=== PATIENT | male | born 1965 | race Caucasian/White ===

== ENCOUNTER 2025-03-10 11:19 | Inpatient (IN) | payer BC, SELFPAY ==
[2025-03-10] VITALS (26 sets, daily range): BP systolic 111–159; BP diastolic 69–126; BMI 30.6
--- NOTE | 2025-03-10 04:29 | ED.GENMED ---
History of Present Illness
General
Chief Complaint: Circulation Problem
Source: patient and records
Exam Limitations: none
Time Seen by Provider: 03/10/25 04:09
Nursing documentation reviewed up to this point in time: agreed with
History of Present Illness
History of Present Illness:
59-year-old male with peripheral vascular disease status post 2 aorto to femoral once in [place] once at [place]
Continues to smoke, takes aspirin, no other blood thinners he has had pain in his left foot chronically with exertion past 24 hours has had it with rest, here his left foot is cool without a pulse
Past History
Past History
ED Past Medical History: CAD, Other (Vascular disease) and Other (Coronary disease with stents and MRIs, diastolic dysfunction with EF of 50%, questionable previous stroke, known left internal carotid occlusion, PAD with aortobifemoral grafting,
hyperlipidemia, hypertension)
ED Past Surgical History: Cardiac and Other (Peripheral vascular disease)
Social History
Tobacco: Smoker
Alcohol: None
Drug: None
Personal:
Living: with family
Employment: Employed
Family History
Family History: Other (Noncontributory)
Review of Systems
Review of Systems
All Other Systems: Not applicable
Constitutional: Denies fever or fatigue
Neurological: Reports numbness
Phy Exam
Physical Exam
Physical Exam:
Physical Exam
General: no apparent distress, not acutely ill
Neck: No jaundice
Heart: s1/s2 regular rate and rhythm, no murmur. equal radial pulses.
Lungs: no acute respiratory distress. clear bilaterally
Abdomen: Not tender palpable albeit diminished pulses left groin
Neuro: alert and oriented. no focal neurological deficits
Skin: no rash
Psychiatric: well kept. interactive and cooperative
Extremities: Left foot cool decreased pulse
Course
Orders/Labs/Results
Orders:
Orders
03/10/25 04:18
CT Abd Aorta Angio W/ Run Off Urgent
Comment:
Reason For Exam: cool foot left
03/10/25 04:19
Electrocardiogram (*1) Urgent
Reason for Study: Abdominal Pain
03/10/25 04:38
Type+Screen Urgent
Complete Blood Count/With Diff Urgent
Comprehensive Metabolic Panel Urgent
PTT Urgent
Prothrombin Time Urgent
03/10/25 06:[address] Non Medication Order As Directed
Physician Order: PTT 6 hours after initial start of Heparin infusion
Above order entered?: Yes
03/10/25 07:00
Heparin 07396 Units/250 ml 25,000 units in 250 ml IV PER PROTOCOL
Weight to be used for heparin protocol in kilograms (kg):: 83.4
Protocol:: Vascular Surgery
PTT Goal Range to be used:: PTT 73 to 111 seconds
Order type:: Initial
INITIAL Infusion Dose (UNITS/KG/hr) & then follow protocol:: 18 units/kg/hr
Infusion Dose in UNITS/hr & then follow protocol (UNITS/hr):: 1,500
INFUSION RATE in mL/hr & then follow protocol (mL/hr):: 15
PTT less than or equal to 64 seconds:: Notify Ordering Provider. obtain orders for rate increase &
possible bolus
PTT 64.1 to 72.9 seconds:: Increase rate by 100 units/hr (+ 1 mL/hr)
PTT 73 to 111 seconds:: Target Range. No change in rate.
PTT 111.1 to 130.9 seconds:: Decrease rate by 100 units/hr (- 1 mL/hr)
PTT 131 to 199.9 seconds:: HOLD for 1 hour. Then decrease rate by 200 units/hr (- 2 mL/hr)
PTT greater than or equal to 200 seconds:: STOP INFUSION. Notify Ordering provider to obtain further orders.
Lab follow-up:: Each change, PTT q6h until 2 consecutive are therapeutic. Then PTT
daily.
03/10/25 07:07
Vascular Surgery Consult Urgent
Consulting Provider: Cruz Lutz
Was physician already notified: Yes
0.9% Sodium Chloride 1000 ml [Nss] 1,000 ml IV BOLUS
Heparin 4,000 units IV NOW STA
03/10/25 07:16
HYDROmorphone [Dilaudid] 1 mg IV NOW STA
03/10/25 07:22
Lidocaine 2% Mpf [Xylocaine Mpf 2%] 100 mg .ROUTE .STK-MED ONE
Propofol [Diprivan] 20 ml .ROUTE .STK-MED
Rocuronium Luke [Rocuronium] 50 mg .ROUTE .STK-MED ONE
03/10/25 07:24
NORepinephrine 4 MG/250 ML [Levophed] 4 mg in 250 ml .ROUTE .STK-MED
Nitroglycerin [Tridil] 500 mcg .ROUTE .STK-MED ONE
03/10/25 08:09
Fentanyl Citrate/Pf [Sublimaze] 100 mcg .ROUTE .STK-MED ONE
03/10/25 08:16
Heparin 5,000 units .ROUTE .STK-MED ONE
Thrombin Topical (Bovine) [Thrombin-Jmi 40758 Unit Vial] 20,000 units .ROUTE .STK-MED ONE
03/10/25 08:31
CeFAZolin SODIUM [Ancef] 2,000 mg .ROUTE .STK-MED ONE
Heparin 10,000 units .ROUTE .STK-MED ONE
03/10/25 09:14
Dexmedetomidine HCl [Precedex] 200 mcg .ROUTE .STK-MED ONE
Fentanyl Citrate/Pf [Sublimaze] 100 mcg .ROUTE .STK-MED ONE
03/10/25 09:17
Dexamethasone Sod Phosphate [Decadron] 20 mg .ROUTE .STK-MED ONE
Ondansetron Injectable [Zofran] 4 mg .ROUTE .STK-MED ONE
Rocuronium Luke [Rocuronium] 50 mg .ROUTE .STK-MED ONE
03/10/25 09:21
Dexmedetomidine HCl [Precedex] 200 mcg .ROUTE .STK-MED ONE
03/10/25 09:28
Sugammadex Sodium [Bridion] 200 mg .ROUTE .STK-MED ONE
03/10/25 Lunch
Cholesterol Lowering
At Your Request: Full Participation
Cholesterol Lowering: Sodium, 2 Gram
03/10/25 10:30
VASCULAR OR PATHOLOGY Routine
Pre-Operative Diagnosis: critical limb ischemia
Operative Procedure: [id number] thrombectomy
Surgeon: miguel
Circulating Nurse: brianne
Specimen Type: left femoral thrombus
:: left popliteal thrombus
03/10/25 10:39
Calcium CHLORIDE [Calcium Chloride 10% Syringe] 1,000 mg .ROUTE .STK-MED ONE
03/10/25 10:42
PRN Pain Medication Management As Directed
May give lesser potent ordered pain med per pt: Yes
preference::
Protocol:: Medication orders for pain may be administered in a
manner that supports deferring to patient preference
when the pt is:
- Requesting an ordered lesser potent pain medication.
Least to most potent pain medications are defined
as: acetaminophen < NSAID < tramadol < opioids
(morphine, oxycodone, hydromorphone).
- Requesting a lesser dose of the same medication IF
ORDERED.
- Requesting a less intrusive route of administration
if both routes are prescribed by the provider (PO <
IV).
03/10/25 10:43
Code Status As Directed
Resuscitation Status: Full Code
03/10/25 10:46
Sodium Bicarbonate 50 meq .ROUTE .STK-MED ONE
03/10/25 11:05
Heparin 10,000 units .ROUTE .STK-MED ONE
03/10/25 11:15
Admit/Transfer Patient As Directed
Co-Sign Provider:
Level of Care: Inpatient admission
Assign to:: ICU
Physician / Group: domingo calderon
Diagnosis: Left limb ischemia
Reason for Hospitalization: Left lower extremity ischemia
Expected length of stay greater than two midnights?: Yes
ELOS- Estimated Length of Stay in days: 3
I certify the patient meets the requirements for IP care: Yes
03/10/25 11:16
PRN Pain Medication Management As Directed
May give lesser potent ordered pain med per pt: Yes
preference::
Protocol:: Medication orders for pain may be administered in a
manner that supports deferring to patient preference
when the pt is:
- Requesting an ordered lesser potent pain medication.
Least to most potent pain medications are defined
as: acetaminophen < NSAID < tramadol < opioids
(morphine, oxycodone, hydromorphone).
- Requesting a lesser dose of the same medication IF
ORDERED.
- Requesting a less intrusive route of administration
if both routes are prescribed by the provider (PO <
IV).
03/10/25 14:31
Acetaminophen [Tylenol] 650 mg PO Q4HPRN PRN
HYDROmorphone [Dilaudid] 0.5 mg IV Q4HPRN PRN
Heparin 35851 Units/250 ml 25,000 units in 250 ml IV PER PROTOCOL
Weight to be used for heparin protocol in kilograms (kg):: 83.4
Protocol:: Vascular Surgery
PTT Goal Range to be used:: PTT 73 to 111 seconds
Order type:: Continue/Resume
Maintain current infusion rate & then follow protocol:: Yes
PTT less than or equal to 64 seconds:: Notify Ordering Provider. obtain orders for rate increase &
possible bolus
PTT 64.1 to 72.9 seconds:: Increase rate by 100 units/hr (+ 1 mL/hr)
PTT 73 to 111 seconds:: Target Range. No change in rate.
PTT 111.1 to 130.9 seconds:: Decrease rate by 100 units/hr (- 1 mL/hr)
PTT 131 to 199.9 seconds:: HOLD for 1 hour. Then decrease rate by 200 units/hr (- 2 mL/hr)
PTT greater than or equal to 200 seconds:: STOP INFUSION. Notify Ordering provider to obtain further orders.
Lab follow-up:: Each change, PTT q6h until 2 consecutive are therapeutic. Then PTT
daily.
Ondansetron Injectable [Zofran] 4 mg IV Q6HPRN PRN
Oxycodone [Roxicodone] 5 mg PO Q4HPRN PRN
Polyethylene Glycol Powder [Miralax] 17 grams PO DAILYPRN PRN
03/10/25 14:31
EKG [Electrocardiogram (*1)] Routine
Reason for Study: QTc Monitoring
Heparin Protocol- PTT Orders As Directed
PTT per Heparin protocol: -Obtain CBC and baseline PTT - if not already collected.
-Obtain PTT 6 hours from start of infusion. Then, every 6 hours until 2 consecutive
PTT's are therapeutic. Then, PTT Daily.
-With each rate change, obtain PTT every 6 hours until 2 consecutive PTT's are
therapeutic. Then, PTT Daily.
Activity As Directed
Activity Level: Bedrest for limited time
Bedrest duration in hours then activity as indicated above:: 24
Notify MD As Directed
Notify physician if: PTT is greater than or equal to 200.
Vital Signs As Directed
Frequency: Per unit guidelines
03/11/25 04:18
Basic Metabolic Panel IN AM
Complete Blood Count/No Diff IN AM
Magnesium IN AM
03/11/25 08:00
Aspirin Chewable [Low Strength Aspirin] 81 mg PO DAILY
03/12/25 04:17
Basic Metabolic Panel IN AM
Complete Blood Count/No Diff IN AM
03/13/25 06:00
Basic Metabolic Panel IN AM
Complete Blood Count/No Diff IN AM
Abnormal Lab Results
03/10/25
04:38
MCH 31.1 H pg
(27.0-31.0)
Absolute Monos (auto) 0.8 H 10^3/uL
(0.1-0.6)
Monocytes % 9.6 H %
(1.7-9.3)
Chloride 108 H mmol/L
(98-107)
Glucose 101 H mg/dl
(70-99)
03/10/25 04:38
03/10/25 04:38
Vital Signs
Initial and Last Documented VS:
Initial Vital Signs
Temp Pulse BP Pulse Ox
97.6 F 68 159/86 98
03/10/25 03:52 03/10/25 03:52 03/10/25 03:52 03/10/25 03:52
Last Documented Vital Signs
Temp Pulse Resp BP Pulse Ox
98.3 F 71 18 111/61 95
03/12/25 11:35 03/12/25 13:15 03/12/25 13:15 03/12/25 12:00 03/12/25 12:45
MDM/Problems Addressed
Differential Diagnosis Includes:
Arterial occlusion embolic
MDM/Problems Addressed:
Pulseless
Chronic conditions affecting care:
Peripheral vascular disease
Acute Exacerbation and/or Progression of Chronic Illness:
Peripheral vascular disease
*Pulse Oximetry
SaO2: 98
Oxygen Mode of Delivery: Room air
Patient hypoxic: no
*Critical Care Note
Total Time (30-74mins, 75-104mins- exclusive of procedures): 31
Update Note
Update Note:
late entry
ct report reviewed, call to vascular and hospitalist
[facility]
admit to OR,
ED Attending Note
-
Portions of this chart may have been created with voice recognition software.� Occasional wrong word or��sound alike� substitutions may have occurred due to the inherent limitations of voice recognition software.
Discharge Plan
Departure
Patient Disposition: Admit
Date of Disposition: 03/10/25
Time of Disposition: 07:10
Admit to: OR
Presentation/result/management discussed w/ accepting MD/DO: Hospitalist
Patient with high blood pressure during this ER visit?: No
Condition: Serious
Discharge Problem:
Acute arterial insufficiency
Interventions
Interventions:
*General Assessment Last Done: 03/10/25 04:43
*Neglect/Abuse Screening Last Done: 03/10/25 04:43
*ED- Fall Risk Assessment Last Done: 03/10/25 04:43
*Nursing Disposition Last Done: 03/10/25 08:48
ED-Peripheral Vascular Assessment Last Done: 03/10/25 04:43
Discharge Date and Time
Discharge Date/Time: 03/10/25 08:50
[2025-03-10 04:50] LABS: Hematocrit 49.5 % (39.0-52.0); Hemoglobin 17.3 g/dL (13.0-18.0); Mean Corp Hgb Conc. 34.9 g/dL (33.0-37.0); Mean Corpuscular Volume 88.9 fL (80.0-94.0); Nucleated Red Blood Cells % 0 % (-); Platelet Count 214 10^3/uL (130-400); Red Cell Dist. Width 13.4 % (11.5-14.5)
[2025-03-10 05:09] LABS: INR 0.97; PT 13.1 Sec (11.4-14.6)
[2025-03-10 05:10] LABS: APTT 29.5 Sec (23.4-35.0)
[2025-03-10 05:20] LABS: ALT (SGPT) 26 U/L (0-50); AST (SGOT) 29 U/L (17-59); Albumin 4.3 g/dl (3.5-5.0); Alkaline Phosphatase 95 U/L (38-126); Blood Urea Nitrogen 17 mg/dl (9-20); Calcium 9.6 mg/dl (8.4-10.2); Carbon Dioxide 24 mmol/L (22-30); Chloride 108 mmol/L (98-107); Estimated Creatinine Clearance 112 ml/min; Glucose 101 mg/dl (70-99); Potassium 4.5 mmol/L (3.5-5.1); Sodium 138 mmol/L (135-145); Total Protein 7.0 g/dl (6.3-8.2); eGFR > 60.00
--- NOTE | 2025-03-10 07:06 | CON.VAS ---
Consultation
Consultation Request
Date/Time Consultation Performed: 03/10/2025 0700
Requesting Provider: Evans Boothe MD
Performing Provider: Edwige Kerr NP-C for Dr. Lutz
Reason for Consultation: Left lower extremity acute vs chronic limb ischemia
Medical History
-
Chief Complaint: Left lower extremity acute vs chronic limb ischemia
History of Present Illness:
This is a 59-year-old male with significant past medical history for coronary artery disease with PCI, RI, diastolic CHF, left ICA occlusion, PAD, hyperlipidemia, and hypertension who presents to [place] ED with reports of worsening left lower
extremity pain over the past 24 hours particularly now at rest. Patient is known to our service for prior redo aortobifem, however has been lost to follow-up. He does he does endorse medical noncompliance, and continues to smoke. Patient states
that for roughly the past 5 months he has been experiencing claudication style pain at left calf and thigh with ambulation, has resolution of pain at rest. He was managing this pain at home and did not seek medical evaluation. However, yesterday
morning at roughly 9 AM he noted increase in pain to left foot and coolness, as time progressed he noticed discoloration at his digits, decreased sensation, and decreased motor function of toes prompting him to seek ED evaluation in the early hours
today. He states this pain is different from his ongoing claudication style pain over the past 5 months as this now acutely occurred, pain is more severe at left foot, and continues to occur at rest.
Past vascular surgical history:
08/10/2019- Redo aortobifemoral artery bypass with 16 mm x 8 mm bifurcated Dacron graft.
08/14/2019- Exploratory laparotomy and washout of abdomen with evacuation of hematoma. Joey Boo M.D.
Past Medical History
Past Medical History: CAD (PCI), CVA, HTN, RI and Other (Diastolic CHF)
Past Surgical History: Cardiac (Cardiac catheterization with PCI)
Social History
Tobacco: Smoker
Personal:
Living: With Family
Allergies / Home Medications
Allergy/AdvReac Type Severity Reaction Status Date / Time
latex Allergy Breaks Out Verified 03/10/25 03:54
�Medication �Instructions �Recorded �Confirmed �Type
aspirin 81 mg chewable tablet 81 mg PO DAILY 08/18/19 03/10/25 Rx
Review of Systems
-
History Source: Patient
Constitutional: Reports No Symptoms
EENT: Reports No Symptoms
Respiratory: Reports No Symptoms
Cardiac: Reports No Symptoms
Vascular: Reports Leg Pain / Claudication, Numbness and Tingling
Abdomen/GI: Reports No Symptoms
: Reports No Symptoms
Skin: Reports Other ('Blue discoloration 'of left foot digits, cool left foot)
Neurological: Reports Weakness (Patient endorses decreased motor function of left foot digits)
Physical Exam
Vital Signs
Temp Pulse Resp BP Pulse Ox
97.6 F 52 16 143/75 96
03/10/25 03:52 03/10/25 06:30 03/10/25 06:30 03/10/25 06:00 03/10/25 06:30
Lab Results
03/10/25 04:38
03/10/25 04:38
Physical Exam
General: No Apparent Distress and Comfortable
HEENT: Normocephalic, Anicteric and Atraumatic
Respiratory: Non Labored Respirations
Cardiac: Negative JVD
GI: Soft, Non Tender and Non Distended
Musculoskeletal: No Edema (Left calf soft, easily compressible, does endorse pain with palpation, no edema)
Skin: Other (Left foot cool, cyanotic digits of foot, no wounds)
Neuro: AO x 3 and Other (Patient with decreased motor function of left foot digits)
Pulses: Left Femoral: Doppler (Absent left DP and PT pulse) and Right Femoral: +1
Assessment / Plan
-
Assessment: 59-year-old male presents to the ED with acute on chronic left lower extremity limb ischemia CT evidence of occlusion at left limb of aortobifem and left popliteal artery
Plan:
Initiate anticoagulation of heparin infusion
N.p.o.
Emergent OR for revascularization
Admit to hospitalist team, appreciate their medical management given complex comorbidities and medical noncompliance, will need ICU level care postop
Plan reviewed with on-call attending Dr. Lutz
[2025-03-10] MEDS: HEPARIN 4000 UNITS IV (07:18)
[2025-03-10] MEDS: HEPARIN 25000 UNITS/250 ML IV (07:18)
[2025-03-10] MEDS: DILAUDID 1 MG IV (07:22)
[2025-03-10] MEDS: NSS 1000 IV (07:22)
--- NOTE | 2025-03-10 08:47 | HPS.HSE ---
Family Physician
-
Family Physician: NOT KNOW UNKNOWN - PT DOES
Chief Complaint
-
Worsening left foot pain
History of Present Illness
59-year-old male with a past medical history of CAD status post multiple stents, diastolic CHF, ischemic cardiomyopathy, left internal carotid artery occlusion with questionable stroke, hypertension, hyperlipidemia, and PAD/left critical limb
ischemia status post aortobifemoral grafting with revision on 08/11/2019 presents with worsening left lower extremity and left foot pain. Patient states that his pain has been present for a few months, usually occurs with walking. Yesterday, he
started to feel pain at rest. He had an outpatient CTA abdomen and pelvis with bilateral lower extremity runoff showing occlusion of his left femoral artery as well as left popliteal artery occlusion. Patient was seen by vascular surgery in the
emergency department, and taken urgently to the OR for surgical intervention. He was seen and examined in the PACU. He denies chest pain, denies shortness of breath. No nausea, no vomiting. No constipation, no diarrhea. No dysuria. No black or
bloody stools. No fever.
Medical History
Past Medical History
Past Medical History: Reports Other
Additional Past Medical History:
CAD status post multiple cardiac stents
Diastolic CHF
Ischemic cardiomyopathy
PAD/critical limb ischemia status post aortobifemoral grafting with revision on 08/11/2019
Left internal carotid occlusion with questionable stroke
Hypertension
Hyperlipidemia
Past Surgical History: Reports Other
Additional Past Surgical History:
Aortobifemoral grafting with revision on 08/11/2019
Exploratory laparotomy and washout of abdomen with evacuation of hematoma on 08/14/2019
Cardiac stents
Social History
Tobacco: Smoker
Alcohol: None
Drug: None
Family History
Family History: Not pertinent
Allergies / Home Medications
Allergies reflects when Allergies were last updated in [facility].
Home Medications with original date entered in [facility]
Allergy/Medication List:
Allergies
Allergy/AdvReac Type Severity Reaction Status Date / Time
latex Allergy Breaks Out Verified 03/10/25 03:54
Home Medications Table - record
�Medication �Instructions �Recorded �Confirmed
aspirin 81 mg chewable tablet 81 mg PO DAILY 08/18/19 03/10/25
Review of Systems
-
A 12 point ROS was completed and negative except as noted: Yes
Physical Exam
Vital Signs
Vital Signs
Temp Pulse Resp BP Pulse Ox
97.6 F 58 18 155/76 96
03/10/25 03:52 03/10/25 07:00 03/10/25 07:00 03/10/25 07:00 03/10/25 07:00
Physical Exam
General: No Apparent Distress
HEENT: NormoCephalic, Anicteric and Moist mucous membranes
Respiratory: Clear
Cardiac: S1/S2 and Regular Rhythm
GI: Soft, Non Tender, Non Distended and Normal Bowel Sounds
Musculoskeletal: No Clubbing and Cyanosis (Left foot cyanosis)
Neuro: Awake and Alert
Psych: Calm
Laboratory Results
-
03/10/25 04:38
03/10/25 04:38
Laboratory Results
PT 13.1 Sec (11.4-14.6) 03/10/25 04:38
INR 0.97 03/10/25 04:38
APTT 29.5 Sec (23.4-35.0) 03/10/25 04:38
Total Bilirubin 0.6 mg/dl (0.2-1.3) 03/10/25 04:38
AST 29 U/L (17-59) 03/10/25 04:38
ALT 26 U/L (0-50) 03/10/25 04:38
Alkaline Phosphatase 95 U/L (38-126) 03/10/25 04:38
Impression/Plan
-
HPI: 59-year-old male with a past medical history of CAD status post multiple stents, diastolic CHF, ischemic cardiomyopathy, left internal carotid artery occlusion with questionable stroke, hypertension, hyperlipidemia, and PAD/left critical limb
ischemia status post aortobifemoral grafting with revision on 08/11/2019 presents with worsening left lower extremity and left foot pain. Patient states that his pain has been present for a few months, usually occurs with walking. Yesterday, he
started to feel pain at rest. He had an outpatient CTA abdomen and pelvis with bilateral lower extremity runoff showing occlusion of his left femoral artery as well as left popliteal artery occlusion. Patient was seen by vascular surgery in the
emergency department, and taken urgently to the OR for surgical intervention. He was seen and examined in the PACU. He denies chest pain, denies shortness of breath. No nausea, no vomiting. No constipation, no diarrhea. No dysuria. No black or
bloody stools. No fever.
#Acute on chronic critical left lower limb ischemia
Appreciate vascular surgery input, status post urgent iliac, femoral, popliteal and tibial thrombectomy, stenting of the previous aortobifem bypass, and fasciotomy on 03/10
Continue IV heparin drip, continue aspirin, plan of care as per vascular surgery
Monitor in the ICU, consult inseminator
#Severe PAD
#History of left carotid artery occlusion
Aspirin as above
Check fasting lipid profile, add statin
#Coronary artery disease status post multiple stents
Unclear why he is only on aspirin 81 mg daily�would continue
Check fasting lipid profile, add statin
#Cigarette nicotine dependency
Patient has been counseled to quit smoking
Nicotine patch as needed
#History of essential hypertension
Monitor blood pressure
Consider starting lisinopril if blood pressure is elevated
#Hyperlipidemia
Check fasting lipid profile, add statin
DVT prophylaxis�heparin drip
Full code
Total time spent to see the patient on the floor, examine the patient, review data and lab results, discuss treatment plan with patient, nursing staff around 76 minutes.
[2025-03-10] MEDS: DILAUDID 0.25 MG IV (15:06)
--- NOTE | 2025-03-10 16:18 | PTCARENOTE ---
Addendum note (PACU) ....Per Dr Lutz continue Heparin drip at 1500U/HR.
--- NOTE | 2025-03-10 16:22 | OR.RPT ---
CT Surgery Operative Note
-
Pre-op Diagnosis: Left Leg Acute Limb Ischemia
Post-op Diagnosis: Same
Procedure:
Left Aortobifemoral Limb Phoenix Thrombectomy
Left Femoral bovine pericardial patch angioplasty
Balloon Expandable Stent Placement in Proximal Left Iliac Limb with 10x39 VBX
Aortogram
Left Leg Angiogram
Self Expanding Stent Placement in Left Iliac Limb with 8x50 Viabahn
SFA Phoenix Thrombectomy
Left Below Knee Popliteal Artery Cut Down and Phoenix Thrombectomy of Below Knee Popliteal Artery, Anterior Tibial Artery
Left Distal Posterior Tibial Cut Down and Thrombectomy of Posterior Tibial Artery and Plantar Artery
Four Compartment Fasciotomy
Primary Surgeon: Cruz Lutz MD
Assisting Surgeons: None
Specimen: Tibial and Femoral Clot
Cultures: None
Complications / Blood Loss: 250mL
Indications for Procedure: This is a 59M with a hx of a redo ABF in 2019. Lost to followup. Continues to smoke. Presents with acute limb ischemia, [place] IIa, for 12 hours. Hx of Left leg claudication for 6 months. CTA showed occluded Left ABF
Limb and popliteal artery occlusion. It was unclear if the ABF limb was acutely occlused or the popliteal artery. Given these findings, patient is at high risk for limb loss. Patient was offered thrombectomy of LLE for limb salvage. Discussion of
risks, benefits, and alternatives were discussed. Patient wished to proceed.
Procedure: The patient was brought to the operating room and placed on the operating room table in supine position. The Abdomen, Pelvis and Left Leg were prepped and draped in the usual sterile fashion. A surgical timeout was performed. The
procedure started with a longitudinal incision over the previous incision in the left groin. Electrocautery was used to divide the subcutaneous tissue. There was significant scar tissue after this layer. The [place] SFA in a virgin field was
identified and circumferentially dissected. Dissection carried on to the the BUSINESS OFFICE TECHNOLOGY INSTRUCTOR and ABF graft. The ABF graft was circumferentially dissected and controlled with a vessel loop. The profunda was difficult to dissect as it was immediately inferior to
the SFA in a previously dissected field. It was identified and controlled. The patient was heparinized. The ritter of the ABF was incised longitudinally and extended onto the SFA. This showed chronic appearing thrombus. There was no inflow. A 5F
phoenix was passed proximally. Chronic thormbus was removed. There was some bahai of inflow. Multiple passes were performed and clean passes were achieved with limited inflow. The profunda had good back bleeding. The SFA was thrombectomized
with a 4 phoenix. Small acute clot was removed along with more organized thrombus. Good back bleeding was achieved. The arteriotomy was then patched with a bovine pericardial patch to no narrow the SFA. The Patch was then accessed with a micro
needle and wire. The needle was exchanged for a microsheath. The wire was exchanged for a stiff glide and the sheath exchanged for a 5fr sheath. The stiff glide was easily placed in the distal abdominal aorta. A flush catheter was placed in the
aorta and angiography showed a highly stenotic origin to the Left Limb. The 5fr sheath was exchanged for a 8Fr sheath. A 8x50 viabahn was used to stent the narrowing and postdilated with a 8mm balloon. It slipped down and did not treat the lesion.
A 10x39 VBX was then used to nail the origin of the left limb. angiography showed resolution of the stenosis and rapid opacification of the left limb. The left BUSINESS OFFICE TECH[employer]OLOGY INSTRUCTOR.SFA and profunda were widely patent. The AK/BK pop was patent but there was an
occlusion of the origin of the AT/TP trunk. Tibial outflow was slugish. A poor PT signal was heard. The 8Fr sheath was removed and the arteriotomy was closed with 5-0 Prolene.
Next, a BK pop cut down was performed on the medial leg 1 finger breadth below the tibia. This was carried through the subcutaneous tissue with electrocautery. The gastroc and soleus was retracted posteriorly allowing entry into the pop space. The
BP pop was identified and dissection extended down to the tibial trifurcation. The AT vein was ligated with silk sutures. The The AT, Peroneal and PT was controlled with vessel loops. A transverse arteriotomy was performed on the BK pop. Phoenix
thrombectomy with a 4F proximally did not reveal any clot. Inflow was robust. The phoenix was then passed down the AT. Chronic appearing clot was removed. After two clean passes, there was good back bleeding from the AT. It was difficult to pass the
phoenix down the peroneal and PT due to the angle. Therefore the arteriotomy was closed with a 6-0 prolene suture in an interrupted manner. Signals were still not good in the foot. Aniography demonstrated that the PT was the best outflow and there
was a weak signal there. Therefore, the PT at the ankle was exposed. The PT appeared spasmed. The Pt was controlled and a transverse arteriotomy was performed. A 2 phoenix catheter was passed proximally. This broke the spasm of the vessel. Distally,
into the plantar, the phoenix removed chronic thrombus. The arteriotomy was closed after good back bleeding was obtained with a 7-0 interupted prolene. There was finally a good signal in the foot and the foot appeared to pink up. an anterior and
lateral fasciotomy was performed with an incision over the interosseus membrane. The Anterior and lateral compartments were released by dividing the fascia and sending a scissors up and down. The medial compartments were already releaesed with the
arterial exposure.
The groin was closed with a 2-0 vicryl for the sheath. The lympatics were reapproximated with a 2-0 interrupted layer. Subcutaneous tissue was reapproximated with a 3-0 vicryl followed by nayan. The BK pop incision was close since muscle was soft.
This was done with a 3-0 vicryl followed by nayan. The Ankle incision was close with a 3-0 vicryl and 2-0 nylon. Dressings were applied and the patient was sent to the postop unit in stable condition.
[2025-03-10 16:53] LABS: INR 1.20; PT 15.5 Sec (11.4-14.6)
[2025-03-10 17:14] LABS: APTT > 200 Sec (23.4-35.0)
[2025-03-10] MEDS: LIPITOR 40 MG PO (17:14)
--- NOTE | 2025-03-10 17:39 | PTCARENOTE ---
Pt received from PACU into rm [id number] after having a bi-fem and L ped-tib thrombectomy with stents and L leg fasciotomy. He is Ox3 and appropriate with good sensation and is able to move the toes on his Left foot. The coloring of his R foot is pale but
normal, his L foot is quite red with some purple discoloring at the very tip of his L great toe with poor cap refill. L foot DP is not obtainable, L PT gets a strong doppler signal. Pt with some coarse breath sounds throughout with an occasional
wheezing cough. Round ABD, good appetite. Kaamra in place draining clear yellow urine. Ordered bedrest for the next 242hrs. L groin ROBBY dressing in place. LLE fasciotomy site covered in LOTTIE wrap, small amount of bleeding noted through the dressing.
Vascular made aware. PTT drawn upon arrival to the unit, resulted >200 while on 1500 units/hr. MD wants heparin held for 2 hours and another PTT to be drawn at 1930, will dose based on the redrawn level. IV sites otherwise intact. Call rangel within
reach, pt makes needs known.
[2025-03-10] MEDS: ROXICODONE 5 MG PO (18:17)
[2025-03-10] MEDS: DILAUDID 0.5 MG IV ×2 (19:27→22:29)
[2025-03-10 19:36] LABS: Hepatitis C Antibody Negative (Negative)
[2025-03-10 19:52] LABS: APTT 130.0 Sec (23.4-35.0)
--- NOTE | 2025-03-10 20:00 | PTCARENOTE ---
PTT 130, result TT to MD Lutz. Will hold heparin and recheck PTT in 2 hours and notify MD of result.
[2025-03-10] MEDS: REMOVE NICOTINE PATCH REMOVE (22:04)
[2025-03-10] MEDS: ROXICODONE 10 MG PO (22:04)
[2025-03-10 22:33] LABS: APTT 30.9 Sec (23.4-35.0)
[2025-03-10 22:37] LABS: Hematocrit 36.7 % (39.0-52.0); Hemoglobin 12.5 g/dL (13.0-18.0)
--- NOTE | 2025-03-10 23:28 | PTCARENOTE ---
Moderate amount sanguineous drainage from LLE post op dressing. Pt feels dressing is getting tight. Pulse signal remains strong via doppler. MD via TT requested nurse change dressing with ABDs, kerlix and senait wrap. Changed, updated MD. Repeat PTT
30.9, heparin restarted at 1500units/hr as ordered. Dilaudid for pain. Resting comfortably. As previously documented, unable to obtain doppler signal on left DP, PT signal obtainable. Pt reports numbness on top of foot, which he has had. Will
continue to monitor closely and recheck labs as ordered.
[2025-03-11] VITALS (24 sets, daily range): BP systolic 93–139; BP diastolic 48–64; BMI 30.5
[2025-03-11] MEDS: PEPCID 20 MG IV (03:53)
[2025-03-11] MEDS: NSS (PRESERVATIVE FREE) 8 ML IV (03:53)
[2025-03-11 04:29] LABS: Hematocrit 35.8 % (39.0-52.0); Hemoglobin 12.3 g/dL (13.0-18.0); Mean Corp Hgb Conc. 34.4 g/dL (33.0-37.0); Mean Corpuscular Volume 90.2 fL (80.0-94.0); Platelet Count 186 10^3/uL (130-400); Red Cell Dist. Width 13.2 % (11.5-14.5)
[2025-03-11 04:36] LABS: APTT 128.2 Sec (23.4-35.0)
[2025-03-11] MEDS: DILAUDID 0.5 MG IV ×3 (05:16→21:00)
[2025-03-11 05:27] LABS: Blood Urea Nitrogen 14 mg/dl (9-20); Calcium 8.5 mg/dl (8.4-10.2); Carbon Dioxide 26 mmol/L (22-30); Chloride 104 mmol/L (98-107); Estimated Creatinine Clearance 98 ml/min; Glucose 125 mg/dl (70-99); HDL Cholesterol 35 mg/dl; LDL Cholesterol, Calculated 109 mg/dl; Magnesium 2.0 mg/dl (1.6-2.3); Potassium 4.5 mmol/L (3.5-5.1); Sodium 134 mmol/L (135-145); Very Low Density Lipoprotein 24 mg/dl (0-30); eGFR > 60.00
--- NOTE | 2025-03-11 06:58 | CON.INTV ---
Consultation
Consultation Request
Date/Time Consultation Requested: 03/10/2025
Date/Time Consultation Performed: 03/11/2025
Medical History
-
Chief Complaint: Limb ischemia
History of Present Illness:
Patient is a 59-year-old gentleman with known history of coronary artery disease, PCI in the past as well as carotid artery stenosis with ongoing smoking who presented to the hospital with left foot pain. Of note patient has prior history of
aortofemoral grafting with revision in 2019. Patient lately had been having pain with activity but during this presentation he started to have pain at rest. Patient had a CT abdomen pelvis performed which was suggestive of occlusion of left
femoral artery as well as left popliteal artery. Patient was evaluated by the vascular surgery service and was urgently taken to the OR for surgery. Postprocedure he was admitted to the ICU and special forces specialist consult was requested for further input.
Past Medical History: Reports Other
Additional Past Medical History:
CAD status post multiple cardiac stents
Diastolic CHF
Ischemic cardiomyopathy
PAD/critical limb ischemia status post aortobifemoral grafting with revision on 08/11/2019
Left internal carotid occlusion with questionable stroke
Hypertension
Hyperlipidemia
Past Surgical History: Reports Other
Additional Past Surgical History:
Aortobifemoral grafting with revision on 08/11/2019
Exploratory laparotomy and washout of abdomen with evacuation of hematoma on 08/14/2019
Cardiac stents
Social History
Tobacco: Smoker, continues to smoke, started at age 9
Alcohol: None
Drug: None
Family History
Family History: Not pertinent
Allergies / Home Medications
Allergies
Allergy/AdvReac Type Severity Reaction Status Date / Time
latex Allergy Breaks Out Verified 03/10/25 03:54
Home Medications
�Medication �Instructions �Recorded �Confirmed �Last Taken �Type
aspirin 81 mg chewable tablet 81 mg PO DAILY 08/18/19 03/10/25 09/05/19 Rx
Review of Systems
-
Hematologic/Lymphatic: Other (All 14 systems reviewed and negative except as stated above in the history of present illness.)
Vitals / Labs / Diagnostic Testing
Vital Signs
Temp Pulse Resp BP Pulse Ox
97.8 F 69 13 98/61 98
03/11/25 03:00 03/11/25 06:30 03/11/25 06:30 03/11/25 06:00 03/11/25 06:00
Lab Data
03/11/25 04:18
03/11/25 04:18
Laboratory Results
03/10/25 03/10/25 03/10/25
13:15 16:22 16:28
PT Cancelled 15.5 H
INR Cancelled 1.20
APTT Cancelled > 200 H*
03/10/25 03/10/25 03/11/25
19:32 22:03 04:18
PT
INR
APTT 130.0 H 30.9 128.2 H
Diagnostic Testing:
Physical Exam
-
HEENT: Normocephalic
Cardiovascular: S1/S2
Respiratory: Clear
GI: Soft and Non Distended
Neurology: Awake and Alert
Skin: Warm
General: Comfortable
Assessment
-
59-year-old male patient was admitted with critical limb ischemia, taken to the OR on 03/10, s/p left aortobifemoral limb thrombectomy, left femoral bovine pericardial patch angioplasty, balloon expandable stent placement in proximal left iliac,
self-expanding stent placement and left iliac limb, SFA thrombectomy, left below-knee popliteal artery cutdown and Jenniffer thrombectomy of below-knee popliteal artery, anterior tibial artery, left distal posterior tibial cutdown and thrombectomy of
posterior tibial artery and plantar artery with 4 compartment fasciotomy by vascular surgery service, POD #1
Continue observation following procedure
Follow neurovascular checks per protocol
Currently on aspirin, heparin drip and Lipitor 40 mg nightly.
Follow BP monitoring and parameters as set by primary team. Currently MAP of 69, saturating 96% on room air.
Cardiac history noted
Monitor on telemetry
Pain control per protocol
RASS goal 0
No known history of lung disease however longstanding history of smoking and does report expectoration in the mornings.
CXR reviewed, chronically elevated right hemidiaphragm
No prior PFTs for review
Encouraged IS
Diet advancement per protocol
Aspiration precautions
Creat at baseline, follow UO
Critical I/Os
Void trials
Replete electrolytes as needed
No signs/symptoms suspicious for infectious etiology at this time
Will observe off antibiotics for now
Follow temperatures/CBC
Hb and platelets postoperatively stable
DVT prophylaxis: On heparin drip currently.
Encouraged OOB/PT/OT/ambulation once cleared by surgical team
Other medical diagnoses:
- Chronically elevated right hemidiaphragm (reviewed CXR froom 2019)
- History of smoking, suspect underlying COPD. Recommend out patient pulmonary follow up. Also needs LDCT for lung cancer screening. Information added to d/c section
- H/o CAD, PCI. Unfortunately continues to smoke. We talked about smoking cessation
- HTN, HLD
Critical Care time 45 mins -- The patient is admitted for acute critical illness for the treatment of vital organ failure and/or prevention of further life-threatening conditions. Total care includes time spent in review of history, physical exam,
medications, hemodynamic/ventilator parameters, laboratory data, imaging and discussion with house staff, pharmacy, respiratory therapy, lens marker, and nursing.
Data:
CXR 02/2025: 1. Mild right lung volume loss with mild left to right mediastinal shift and mild elevation of the right hemidiaphragm.
2. Stent in the right coronary artery.
CTA Abd/pelvis 02/2025: No evidence of abdominal aortic dissection or aneurysm.
Marked narrowing of the proximal celiac axis similar to prior study. Bilateral renal artery stenoses again noted.
Postoperative changes of the abdominal aorta with bypass noted, occlusion of the left aspect of the bypass new in the interval since prior CTA. Right aspect of bypass is narrowed though patent.
Reconstitution of left femoral bifurcation. Right femoral artery patent. Bilateral femoral arteries patent. Right popliteal artery patent.
Left popliteal artery occluded proximal to the tibial-peroneal junction.
Right calf arteries patent. Left calf arteries not opacified.
ECHO 08/2019: 1. Normal left ventricular size with mild global hypokinesis, ejection fraction 40%
2. Mild mitral regurgitation, mitral annular calcification and normal left
atrium
3. Mild aortic sclerosis without stenosis or regurgitation
4. Normal right heart with probable normal pulmonary artery systolic pressure
5. Bilateral pleural effusions.
[2025-03-11] MEDS: ROXICODONE 10 MG PO ×2 (07:29→17:51)
[2025-03-11] MEDS: LOW STRENGTH ASPIRIN 81 MG PO (07:30)
--- NOTE | 2025-03-11 09:36 | W.PN.HOSP.TC ---
Today's Communication/Plan
-
see bold
Assessment / Plan
Assessment / Plan
HPI: 59-year-old male with a past medical history of CAD status post multiple stents, diastolic CHF, ischemic cardiomyopathy, left internal carotid artery occlusion with questionable stroke, hypertension, hyperlipidemia, and PAD/left critical limb
ischemia status post aortobifemoral grafting with revision on 08/11/2019 presents with worsening left lower extremity and left foot pain. Patient states that his pain has been present for a few months, usually occurs with walking. Yesterday, he
started to feel pain at rest. He had an outpatient CTA abdomen and pelvis with bilateral lower extremity runoff showing occlusion of his left femoral artery as well as left popliteal artery occlusion. Patient was seen by vascular surgery in the
emergency department, and taken urgently to the OR for surgical intervention. He was seen and examined in the PACU. He denies chest pain, denies shortness of breath. No nausea, no vomiting. No constipation, no diarrhea. No dysuria. No black or
bloody stools. No fever.
#Acute on chronic critical left lower limb ischemia
Appreciate vascular surgery input, status post urgent iliac, femoral, popliteal and tibial thrombectomy, stenting of the previous aortobifem bypass, and fasciotomy on 03/10
Continue IV heparin drip, continue aspirin, resumed on statin, plan of care as per vascular surgery
Appreciate sales planning manager input, transfer out of the ICU when okay with vascular surgery
#Severe PAD
#History of left carotid artery occlusion
Continue aspirin, resumed statin
#Leukocytosis
Likely reactive, patient is afebrile
Monitor off antibiotics
#Coronary artery disease status post multiple stents
Patient did not have insurance, and was not taking his Coreg
Continue aspirin 81 mg daily, resume Coreg 6.25 mg twice a day, resumed statin
#Cigarette nicotine dependency
Patient has been counseled to quit smoking
Nicotine patch as needed
#History of essential hypertension
Monitor blood pressure
Consider starting lisinopril if blood pressure is elevated
#Hyperlipidemia
LDL 109, resumed statin
#Obesity due to excess calories
Affects all aspects of care
DVT prophylaxis�heparin drip
Full code
Total time spent to see the patient on the floor, examine the patient, review data and lab results, discuss treatment plan with patient, nursing staff around 50 minutes.
Physical Exam
General: No acute distress
HEENT: Normocephalic, Atraumatic, EOMI, MMM
Respiratory: Clear to Auscultation bilaterally
Cardiac: Normal S1/S2, Regular Rate and Rhythm
GI: Soft, Nontender, Nondistended, Normal Bowel Sounds
Extremities: No Clubbing, Cyanosis
Left lower extremity incision dressed
Neuro: Nonfocal/Grossly Intact
Anticipated Discharge: 24 - 48 hours
Subjective/Interval History
-
Date of Service: March 11, 2025
Patient reports his left foot pain is 5 out of 10 in intensity. Denies chest pain, denies shortness of breath. No fever, no vomiting.
Objective Data
-
Labs:
Laboratory Results
03/10/25 03/11/25 03/11/25
22:03 04:18 11:00
WBC 14.2 H
Hgb 12.5 L D 12.3 L
Hct 36.7 L 35.8 L
Plt Count 186
APTT 30.9 128.2 H Pending
Sodium 134 L
Potassium 4.5
Chloride 104
Carbon Dioxide 26
BUN 14
Creatinine 0.8
Glucose 125 H
Calcium 8.5
Vital Signs:
Vital Signs
Temp Pulse Resp BP Pulse Ox
98 F 68 14 119/62 94
03/11/25 07:23 03/11/25 08:30 03/11/25 08:30 03/11/25 08:00 03/11/25 08:30
I&O
03/10/25 03/11/25 03/12/25
06:59 06:59 06:59
Intake Total 748 / 748 268 / 268
Output Total 1260 / 1260
Balance -512 / -512 268 / 268
[2025-03-11 11:33] LABS: APTT 139.6 Sec (23.4-35.0)
[2025-03-11] MEDS: COREG 6.25 MG PO ×2 (12:04→20:46)
[2025-03-11] MEDS: HEPARIN 25000 UNITS/250 ML IV (12:04)
--- NOTE | 2025-03-11 13:09 | W.PN.VS ---
Today's Communication / Plan
-
dc schwab
continue heparin
Assessment/Plan
-
59M POD 0 LLE iliofemoral, pop, tibial thrombectomy with aortoiliac stent and 4 compartment fasciotomy for ALI.
-continue heparin drip
-transition to PO AC tomorrow
-DC schwab
-Q2H neurovascular schecks.
Subjective Data
-
Date of Service: March 11, 2025
Pt seen and examined at bedside. Pain moderatley controlled. Sensation and motor function has returned to LLE. Some posterior calf pain; incisional and not 2/2 to compartment syndrome
Objective Data
-
Vital Signs
Temp Pulse Resp BP Pulse Ox
97.9 F 68 12 101/63 95
03/11/25 11:19 03/11/25 13:00 03/11/25 13:00 03/11/25 13:00 03/11/25 12:30
Intake and Output
03/10/25 03/11/25 03/12/25
06:59 06:59 06:59
Intake Total 748 / 748 296 / 296
Output Total 1260 / 1260 600 / 600
Balance -512 / -512 -304 / -304
Intake:
Oral fluids 530 / 530 240 / 240
IV fluids (Total) 218 / 218 56 / 56
Heparin 118 / 118 56 / 56
NSS 100 / 100
Output:
Urine, Schwab 1260 / 1260 600 / 600
Lab Results
03/11/25 04:18
03/11/25 04:18
Calcium 8.5 mg/dl (8.4-10.2) 03/11/25 04:18
Magnesium 2.0 mg/dl (1.6-2.3) 03/11/25 04:18
Total Bilirubin 0.6 mg/dl (0.2-1.3) 03/10/25 04:38
AST 29 U/L (17-59) 03/10/25 04:38
ALT 26 U/L (0-50) 03/10/25 04:38
Alkaline Phosphatase 95 U/L (38-126) 03/10/25 04:38
Total Protein 7.0 g/dl (6.3-8.2) 03/10/25 04:38
Albumin 4.3 g/dl (3.5-5.0) 03/10/25 04:38
Physical Exam
-
LLE: incisions, C/D/I
- Left PT triphasic signal
--- NOTE | 2025-03-11 16:33 | CM ---
Patient seen at bedside in ICU. Patient states that he lives with his mother in law and grandson. Patient states it is a one story home with 11 steps to the basement where he resides. patient has no PCP at this time and agreed to call his insurance
co to review options. Patient uses the [facility] on [address]. Patient plan is for discharage with no needs, pending medical treatment planning recommendations. CM will continue to follow for discharge planning needs.
Plan; home with VN vs SNF pending medical treatment plan
--- NOTE | 2025-03-11 16:52 | PTCARENOTE ---
Left groin and left lower leg dressing C/D/I. Left toes red with good cap refill. + left PT and AT via doppler. DP absent with doppler.
Sinus rhythm. Good appetite. All assessments unchanged for 1200 and 1600.
[2025-03-11] MEDS: LIPITOR 40 MG PO (17:48)
[2025-03-11 19:05] LABS: APTT 103.0 Sec (23.4-35.0)
--- NOTE | 2025-03-11 21:45 | PTCARENOTE ---
Pt AOx3, VSS, NSR on monitor, c/o pain in left foot, 9/10 PRN Dilaudid given. Heparin gtt infusing per protocol. Left foot positive with dopplers, warm to touch, and patient has sensation. Wrapped with LOTTIE wrap, no visible bleeding. Valerie dressing
with scant old drainage, light blinking green. Pt offers no complaints at this time.
[2025-03-11] MEDS: REMOVE NICOTINE PATCH REMOVE (22:11)
[2025-03-12] VITALS (30 sets, daily range): BP systolic 88–121; BP diastolic 27–84; BMI 31.2
[2025-03-12] MEDS: ROXICODONE 10 MG PO (00:13)
[2025-03-12 00:44] LABS: APTT 102.4 Sec (23.4-35.0)
--- NOTE | 2025-03-12 01:48 | PTCARENOTE ---
Pt c/o 10/10 in left lower leg, PRN Oxycodone given. Pulses remain positive with doppler, Neurovascular completed, no changes. Pt urinated 300ml s/p schwab removal.
[2025-03-12 04:24] LABS: Hematocrit 28.9 % (39.0-52.0); Hemoglobin 9.9 g/dL (13.0-18.0); Mean Corp Hgb Conc. 34.3 g/dL (33.0-37.0); Mean Corpuscular Volume 90.9 fL (80.0-94.0); Platelet Count 158 10^3/uL (130-400); Red Cell Dist. Width 13.1 % (11.5-14.5)
[2025-03-12 04:34] LABS: APTT 98.1 Sec (23.4-35.0)
[2025-03-12 05:00] LABS: Blood Urea Nitrogen 18 mg/dl (9-20); Calcium 8.0 mg/dl (8.4-10.2); Carbon Dioxide 28 mmol/L (22-30); Chloride 105 mmol/L (98-107); Estimated Creatinine Clearance 97 ml/min; Glucose 101 mg/dl (70-99); Potassium 4.2 mmol/L (3.5-5.1); Sodium 133 mmol/L (135-145); eGFR > 60.00
--- NOTE | 2025-03-12 07:07 | W.PN.UPDATE ---
Addendum entered and electronically signed by SHEILA Terry 03/12/25 19:47:
Add to above note:
NIH 4
Patient had resolution of symptoms upon return from CTscan and was back to baseline.
Original Note:
Update Note
Progress Note Update
0615- Patient having word finding difficulties, unable to answer questions (did not know date of , year, hospital, had difficulty naming objects, etc). Ataxia with finger to nose on the left noted. No facial droop, weakness, or dysarthria
noted. Heparin gtt has been therapeutic. Patient denies headache, nausea, or vomiting; although he does have hiccups. No changes in SBP, currently 110s. Vascular surgeon Dr. Lutz, made aware of changes and advised to call a stroke alert.
Stroke alert called in ICU and tele stroke at [facility] notified of stroke. Spoke with Dr. Evangelista, neurologist at [facility], discussed examination findings and patient case. Advised Stat CTscan of the head and CT head/angio. Heparin gtt paused until
head Ctscan negative for bleed. Patient was last known normal during EKG test at 0445.
NEURO:
Mental Status:�Alert. Patient is not oriented x3.
Cranial Nerve:�Pupils are equal, round, and reactive to light. Visual martin are intact to confrontation. Ocular movements are intact. Face is symmetric at rest and with activation with intact sensation throughout. Hearing intact to finger rub
bilaterally. Muscles of tongue and palate activate symmetrically. No dysarthria. Strength is full in sternocleidomastoid and trapezius bilaterally.
Motor:�Muscle bulk and tone are normal. Strength is 5/5 in all four extremities both proximally and distally (patient has pain in left leg from surgery). There is no pronator drift or satelliting on arm roll.
Sensory:�Sensation grossly intact.
Coordination:�Dysmetria on L [id number], with left finger ataxia with finger to nose. Fast finger tapping with normal amplitude and speed.
Gait:�Deffered due to acuity
Ctscan head- IMPRESSION:
1. No CT evidence for acute intracranial hemorrhage or transcortical infarct.
2. Small chronic transcortical infarct in the superolateral right frontal lobe.
3. 6 mm chronic lacunar infarct in the right basal ganglia.
4. 8 mm chronic infarct in the left caudate nucleus.
Results of Ctscan of the head communicated with Vascular surgeon Dr. Lutz. Heparin gtt will resume. Continue neuro checks as ordered.
--- NOTE | 2025-03-12 07:50 | PTCARENOTE ---
Handoff assessment. Neuro back to baseline. Left L/E with no anterior tibial Doppler signal. +PT Doppler signal. Left groin PICOT dressing with old drainage, mild local swelling, ecchymosis of his scrotum and the edges of the PICOT dressing. LLE
with bulky dressing and senait wrap bandage intact. He has mild sensory loss noted with some tingling when touching the bottom of his foot. Some difficulty flexing his foot. He was informed of the plan of care regarding monitoring his neurological
status and his circulation in his LLE. He verbalized his understanding. Heparin drip 1200units/hr. Lungs CTA. Hyperactive BSX4. Poor appetite. Safe environment maintained.
--- NOTE | 2025-03-12 07:50 | PTCARENOTE ---
Approximately at 0600 this RN went to do morning vascular checks. Pt woke up confused, could not find his words, did not know his birthday or current year. New left sided Ataxia. GWEN Epstein was notified. Stroke alert was called. Pt was on a heparin
gtt that was therapeutic, placed on hold to take to CAT scan, was restarted shortly after.
--- NOTE | 2025-03-12 08:09 | W.PN.VS ---
Today's Communication / Plan
-
Patient seen and examined at bedside with Dr. Theodore Kamara III, below plan reviewed with attending
Assessment/Plan
-
59M POD 2 LLE iliofemoral, pop, tibial thrombectomy with aortoiliac stent and 4 compartment fasciotomy for ALI. Stroke alert this AM for confusion and LUE ataxia, CT head and neck with BL ICA occlusion, CT head negative for acute infarct.
Plan:
- Continue heparin infusion
- Provided education on importance of medical compliance
- Encourage smoking cessation
- Encourage incentive spirometry
- Given stroke alert activation would consider consult to neurology, will defer to primary team
- I will return to change LLE calf dressing
- Continue ICU level care today
- Continue neurovascular checks
- From a vascular surgery perspective ok to get OOB and initiate PT as tolerated
Subjective Data
-
Date of Service: March 12, 2025
Patient seen and examined at bedside, reports acute episode of confusion and left upper extremity incoordination, prompting activation of stroke alert. Currently, states he feels good and confusion and LUE weakness/incoordination resolved. Reports
adequate post operative pain management. Denies nausea, vomiting, fever, and chills.
Objective Data
-
Vital Signs
Temp Pulse Resp BP Pulse Ox
98.3 F 82 18 113/54 96
03/12/25 08:02 03/12/25 04:45 03/12/25 04:45 03/12/25 04:09 03/12/25 04:15
Intake and Output
03/11/25 03/12/25 03/13/25
06:59 06:59 06:59
Intake Total 748 / 748 888 / 888
Output Total 1260 / 1260 1700 / 1700
Balance -512 / -512 -812 / -812
Intake:
Oral fluids 530 / 530 720 / 720
IV fluids (Total) 218 / 218 168 / 168
Heparin 118 / 118 168 / 168
NSS 100 / 100
Output:
Urine, Kamara 1260 / 1260 1400 / 1400
Urine, Voided 300 / 300
Lab Results
03/12/25 04:17
03/12/25 04:17
Calcium 8.0 mg/dl (8.4-10.2) L 03/12/25 04:17
Magnesium 2.0 mg/dl (1.6-2.3) 03/11/25 04:18
Total Bilirubin 0.6 mg/dl (0.2-1.3) 03/10/25 04:38
AST 29 U/L (17-59) 03/10/25 04:38
ALT 26 U/L (0-50) 03/10/25 04:38
Alkaline Phosphatase 95 U/L (38-126) 03/10/25 04:38
Total Protein 7.0 g/dl (6.3-8.2) 03/10/25 04:38
Albumin 4.3 g/dl (3.5-5.0) 03/10/25 04:38
Physical Exam
-
NAD, resting in bed comfortably
No tachycardia
No dyspnea on room air
ABD rotund, nontender, nondistended
LLE groin PIC[employer] dressing dry and intact, no evidence of hematoma
LLE calf fasciotomy site dressing CDI
Left foot warm, doppler PT signal
--- NOTE | 2025-03-12 08:10 | W.PN.INTV ---
Today's Communication / Plan
Recommendations
Avoid hypotension
Heparin drip + aspirin
High intensity statin
Strongly encouraged cessation of cigarette smoking
Outpatient PFTs + LDCT chest
Neurochecks q1-2hr; neuro consulted
Continue to monitor for additional changes in mental status with immediate notification to neurology if change in neurological status occurs
Continue ICU level of care
Assessment
-
59-year-old male patient was admitted with critical limb ischemia, taken to the OR on 03/10, s/p left aortobifemoral limb thrombectomy, left femoral bovine pericardial patch angioplasty, balloon expandable stent placement in proximal left iliac,
self-expanding stent placement and left iliac limb, SFA thrombectomy, left below-knee popliteal artery cutdown and Jenniffer thrombectomy of below-knee popliteal artery, anterior tibial artery, left distal posterior tibial cutdown and thrombectomy of
posterior tibial artery and plantar artery with 4 compartment fasciotomy by vascular surgery service (OR date: 03/10/2025)
Continue observation following procedure
Follow neurovascular checks per protocol
Currently on aspirin, heparin drip and Lipitor 40 mg nightly.
Stroke alert called this morning - continue to monitor with q1hr neurochecks
Neuro consulted
Avoid hypotension given he has flow limitation into [employer] as CTA head from earlier this morning shows complete occlusion of bilateral proximal ICAs, with significant cerebrovascular disease; of note, his vertebral + basilar arteries are enlarged
without stenosis or occlusion
Maintain MAP >60 5-70, avoiding hypotension given significant cerebrovascular disease/carotid artery disease/PAD
Cardiac history noted
Monitor on telemetry
Pain control per protocol
Start scheduled tylenol today and start low dose gabapentin to help reduce opiate use
RASS goal 0
No known history of lung disease however longstanding history of smoking and does report expectoration in the mornings.
CXR reviewed, chronically elevated right hemidiaphragm
No prior PFTs for review � this can be performed as an outpatient
Would also recommend LDCT chest as an outpatient given his significant tobacco smoking history for lung cancer screening purposes (he started smoking at age 8); strongly encouraged him to stop smoking now which he is amenable to quitting cold
turkey; nicotine patch offered, patient declined
Encouraged IS
Diet advancement per protocol
Aspiration precautions
Creat at baseline, follow UO
Critical I/Os
Replete electrolytes as needed
No signs/symptoms suspicious for infectious etiology at this time
Will observe off antibiotics for now
Follow temperatures/CBC
Hb and platelets postoperatively stable
DVT prophylaxis: On heparin drip currently.
Encouraged OOB/PT/OT/ambulation once cleared by surgical team
Other medical diagnoses:
- Chronically elevated right hemidiaphragm (reviewed CXR froom 2019)
- History of smoking, suspect underlying COPD. Recommend outpatient pulmonary follow up. Also needs LDCT for lung cancer screening. Information added to d/c section
- H/o CAD, PCI. Unfortunately continues to smoke. We talked about smoking cessation
- HTN, HLD
Given the patient's strokelike symptoms today, he will require continued ICU level of care for q1-2hr neurochecks
Critical care statement: A total of 42 minutes of critical care time was provided for this patient today. This includes management of unstable vital signs, evaluation of the patient at bedside, reviewing the patient�s pertinent medical records
including radiographs, microbiology, laboratory evaluations, and��discussion with primary team, consultants, pharmacy, nutrition, physical therapy, case management, charge nurse, critical care nursing, and respiratory therapy.
Data:
CXR 02/2025: 1. Mild right lung volume loss with mild left to right mediastinal shift and mild elevation of the right hemidiaphragm.
2. Stent in the right coronary artery.
CTA Abd/pelvis 02/2025: No evidence of abdominal aortic dissection or aneurysm.
Marked narrowing of the proximal celiac axis similar to prior study. Bilateral renal artery stenoses again noted.
Postoperative changes of the abdominal aorta with bypass noted, occlusion of the left aspect of the bypass new in the interval since prior CTA. Right aspect of bypass is narrowed though patent.
Reconstitution of left femoral bifurcation. Right femoral artery patent. Bilateral femoral arteries patent. Right popliteal artery patent.
Left popliteal artery occluded proximal to the tibial-peroneal junction.
Right calf arteries patent. Left calf arteries not opacified.
ECHO 08/2019: 1. Normal left ventricular size with mild global hypokinesis, ejection fraction 40%
2. Mild mitral regurgitation, mitral annular calcification and normal left
atrium
3. Mild aortic sclerosis without stenosis or regurgitation
4. Normal right heart with probable normal pulmonary artery systolic pressure
5. Bilateral pleural effusions.
CTA head/neck 03/12/2025:
NECK CTA:
1. COMPLETE OCCLUSION of both PROXIMAL ICAs.
2. Enlarged bilateral vertebral arteries.
3. 50-70% diameter stenosis at the origin of the left vertebral artery.
4. Moderately enlarged right paratracheal lymph node.
5. Moderate discogenic degenerative disease at C4/C5 with a disc-osteophyte complex causing moderate spinal cord compression and central canal stenosis.
6. Severe right neural foraminal narrowing at C5/C6.
HEAD CTA:
1. Collateral blood supply reaching the terminal communicating segments of both intracranial ICAs.
2. No blood flow in the cavernous segments of the ICAs.
3. 50-70% diameter stenosis in the proximal A1 segment of the right MARIA L.
4. Enlarged vertebral and basilar arteries without stenosis or occlusion.
5. Small chronic transcortical infarct in the superolateral right frontal lobe.
6. 6 mm chronic lacunar infarct in the right basal ganglia.
7. 9 mm chronic infarct in the left caudate nucleus.
Subjective Dataa
Subjective Data
Date of Service:
Date of Service: March 12, 2025
Chief Complaint: Resolution Rep Follow Up
Subjective:
Pt seen and evaluated this AM. HR 63, BP 108/57 and SpO2 93%. Runs of PAT into 150s this AM - asymptomatic. AMS this AM with left sided limb ataxia and gurgled speech. Stroke alert called - no acute intracranial pathology seen and no LVO.
Remains on heparin gtt.
Review of Systems
General: Other (Negative unless mentioned above)
Objective Data
Data Reviewed
Vital Signs / I&O / Oxygen:
Vital Signs
Temp Pulse Resp BP Pulse Ox
98.3 F 77 18 113/57 96
03/12/25 08:02 03/12/25 08:32 03/12/25 04:45 03/12/25 08:32 03/12/25 04:15
Intake and Output
03/11/25 03/12/25 03/13/25
06:59 06:59 06:59
Intake Total 748 / 748 888 / 888
Output Total 1260 / 1260 1700 / 1700
Balance -512 / -512 -812 / -812
SaO2 96
Nasal Cannula flow liters per 2
minute
Physical Exam
General: Respiratory Distress (negative), Comfortable, Chills (negative) and Sweats (negative)
HEENT: Normocephalic and Anicteric
Cardiovascular: S1-S2 and Peripheral Edema (negative)
Respiratory: Wheeze (negative), Crackles (negative), Rhonchi (negative) and Non-Labored Respirations
GI: Soft, Non Distended, Non Tender and Normal Bowel Sounds
Neurology: AO x 3, No Motor Deficits and Tremors (negative)
Skin: Warm, Dry, Cyanosis (negative) and Jaundice (negative)
Labs/Micro/Reports
Lab Data
03/12/25 04:17
03/12/25 04:17
Laboratory Results
03/11/25 03/11/25 03/12/25
11:11 18:46 00:22
APTT 139.6 H 103.0 H 102.4 H
03/12/25
04:17
APTT 98.1 H
[2025-03-12] MEDS: COREG 6.25 MG PO (08:32)
[2025-03-12] MEDS: LOW STRENGTH ASPIRIN 81 MG PO (08:32)
[2025-03-12] MEDS: ROXICODONE 5 MG PO ×2 (08:54→19:51)
--- NOTE | 2025-03-12 09:45 | W.PN.HOSP.TC ---
Addendum entered and electronically signed by Mary Torres MD 03/12/25 13:01:
Addendum
CT head reviewed and neurology notes reviewed.
Will maintain permissive hypertension. Will lower the dose of carvedilol
End
Original Note:
Today's Communication/Plan
-
He had stroke alert last night also , notes reviewed
Stat head CT for now, holing heparin gtt for now pending neurology evaluation
Bolus IVF to keep SBP on high side. Of note, his neurological symptoms seem to be associated with SBP less than 100. Hold bP medications for now
Appreciate ICU doctor and staff, neurology help
Assessment / Plan
Assessment / Plan
Physical Exam
General: No acute respiratory distress, aphasic for short time
HEENT: Normocephalic, Atraumatic, EOMI, MMM
Respiratory: Clear to Auscultation bilaterally
Cardiac: Normal S1/S2, Regular Rate and Rhythm
GI: Soft, Nontender, Nondistended, Normal Bowel Sounds
Extremities: No Clubbing, Cyanosis
Left lower extremity incision dressed
Neuro: awake, unable to speak fluently, raised both arms above head
Psych; calm
HPI: 59-year-old male with a past medical history of CAD status post multiple stents, diastolic CHF, ischemic cardiomyopathy, left internal carotid artery occlusion with questionable stroke, hypertension, hyperlipidemia, and PAD/left critical limb
ischemia status post aortobifemoral grafting with revision on 08/11/2019 presents with worsening left lower extremity and left foot pain. Patient states that his pain has been present for a few months, usually occurs with walking. Yesterday, he
started to feel pain at rest. He had an outpatient CTA abdomen and pelvis with bilateral lower extremity runoff showing occlusion of his left femoral artery as well as left popliteal artery occlusion. Patient was seen by vascular surgery in the
emergency department, and taken urgently to the OR for surgical intervention. He was seen and examined in the PACU. He denies chest pain, denies shortness of breath. No nausea, no vomiting. No constipation, no diarrhea. No dysuria. No black or
bloody stools. No fever.
# Change in mental status, speech difficulty
He had stroke alert last night also , notes reviewed
Stat head CT for now, holing heparin gtt for now pending neurology evaluation
Bolus IVF to keep SBP on high side. Of note, his neurological symptoms seem to be associated with SBP less than 100. Hold bP medications for now
Appreciate ICU doctor and staff, neurology help
# Mild acute blood loss anemia, I think baseline HGB around 11 and not 17 as on admission ( likely hemoconcentrated)
# hyponatremia, mild
#Acute on chronic critical left lower limb ischemia
Appreciate vascular surgery input, status post urgent iliac, femoral, popliteal and tibial thrombectomy, stenting of the previous aortobifem bypass, and fasciotomy on 03/10
s/p IV heparin drip, continue aspirin, resumed on statin, plan of care as per vascular surgery
Appreciate vascular / ICU doctors help
#Severe PAD with continued tobacco use
#History of left carotid artery occlusion
Continue aspirin, resumed statin
#Leukocytosis
Likely reactive, patient is afebrile
Monitor off antibiotics
#Coronary artery disease status post multiple stents
No chest pain
Patient did not have insurance, and was not taking his Coreg
Continue aspirin 81 mg daily, resume Coreg 6.25 mg twice a day, resumed statin
#Cigarette nicotine dependency
Patient has been counseled to quit smoking
Nicotine patch as needed
#History of essential hypertension
Monitor blood pressure
Holding BP meds until neuro status stabilizes.
#Hyperlipidemia
LDL 109, resumed statin
#Obesity due to excess calories
Affects all aspects of care
DVT prophylaxis�heparin drip
Full code
Total time spent to see the patient on the floor, examine the patient, review data and lab results, discuss treatment plan with patient, consultants, nursing staff around 55 minutes.
Anticipated Discharge: > 48 hours
Subjective/Interval History
-
Date of Service: March 12, 2025
Pt was unable to talk initially then started to talk but with dysarthria, stroke alert and a call to the on-call neurologist was made. Bp was noted to be SBP 92, holding heparin IV, giving IVF bolus, stat CT head , d/w history professor at bed side.
Objective Data
-
Labs:
Laboratory Results
03/12/25 03/12/25
00:22 04:17
WBC 10.2
Hgb 9.9 L
Hct 28.9 L
Plt Count 158
APTT 102.4 H 98.1 H
Sodium 133 L
Potassium 4.2
Chloride 105
Carbon Dioxide 28
BUN 18
Creatinine 0.8
Glucose 101 H
Calcium 8.0 L
Vital Signs:
Vital Signs
Temp Pulse Resp BP Pulse Ox
98.3 F 77 18 113/57 96
03/12/25 08:02 03/12/25 08:32 03/12/25 04:45 03/12/25 08:32 03/12/25 04:15
I&O
03/11/25 03/12/25 03/13/25
06:59 06:59 06:59
Intake Total 748 / 748 888 / 888
Output Total 1260 / 1260 1700 / 1700
Balance -512 / -512 -812 / -812
--- NOTE | 2025-03-12 10:05 | PTCARENOTE ---
Dr. Torres notified care team of pt's unresponsiveness, we were outside his room at the time for jerry rounds. I had just completed his neurovascular assessment. He has his eyes closed and was given Oxycodone @ 0854 for right foot pain. Upon my
arrival into the room he had garbled speech BP was 92/57, he started to hiccough, Dr. Torres ordered 500ml IVF bolus and Dr. Mora ordered stat head CT. Pt continue with dysarthria and expressive aphasia, and hiccouhing. No other symptoms such as
ataxia, visual field deficits, numbness or tingling. He was quickly informed of the plan of care. Upon returning from CT scan Dr. Blanc was entering the room, where he performed a thorough neurological assessment. He informed the pt that he requires
a higher blood pressure to profuse all areas of his brain and that he has had strokes on his head CT. RN will continue to monitor as ordered.
--- NOTE | 2025-03-12 10:12 | W.PN.UPDATE ---
Update Note
Progress Note Update
During rounds, I was told the patient became aphasic. I immediately saw the patient and he was laying in bed, in no acute distress, no seizure-like activity seen, eyes open, unable to speak, BP 121/63, heart rate 83. On room air breathing
comfortably with no tachypnea and not in respiratory distress. Pupils equal at 3 mm bilaterally and brisk. Hospitalist, Dr. Torres, at bedside currently. Heparin drip is currently infusing. Neurology has been consulted and has been reached out
to, evaluate the patient given these acute neurological changes. Stat CT head is ordered. Nurse at bedside.
--- NOTE | 2025-03-12 10:35 | CON.NEURO ---
Addendum entered and electronically signed by Pa Blanc MD 03/12/25 13:51:
Studies reviewed.
I have personally examined the patient. I reviewed and agree with the OUTDOOR PURSUITS INSTRUCTOR's Note.
My addenda:
Awake, alert, interactive. No acute distress.
Speech thick, with difficulty with recall of date and year as well as difficulty with repetitive phrases.
Follows 2-step requests w/o difficulty. No tremor.
Extra-ocular movements grossly intact.
Facial movements full and symmetric. Hearing intact to normal conversational volume.
Normal UE movements bilaterally.
Neck: full ROM.
Chest: no dyspnea
Heart: no JVD
Ext: (-) Clubbing, (-) Cyanosis, (-) Edema
IMPRESSIONS/RECOMMENDATIONS:
Abrupt onset of aphasia, timed with onset of relative hypotension in a patient with bilateral internal carotid artery occlusions
Most likely the patient is experiencing an acute ischemic stroke involving the left hemisphere despite an absence of motor findings
Continue heparin as planned, would avoid heparin boluses to avoid conversion of likely ischemic stroke to hemorrhagic type of stroke
Would avoid relative hypotension with blood pressure staying above 120/80 at all times
Speech therapy and Occupational Therapy evaluations
Smoking cessation education to be provided
Eventually, patient may benefit from MRI of brain which is not urgent to demonstrate extent of ischemic injury
D/W patient/ nursing
All questions answered.
Will continue to follow peripherally.
Original Note:
Documented by User: Elissa Levy NP 03/12/25 12:41
Neuro Assessment/Plan
Assessment
59-year-old male with a past medical history of CAD status post multiple stents, diastolic CHF, ischemic cardiomyopathy, left internal carotid artery occlusion, hypertension, hyperlipidemia, and PAD/left critical limb ischemia status post
aortobifemoral grafting with revision on 08/11/2019 presented to [facility] on 03/10/2025 with worsening left lower extremity and left foot pain now status post urgent iliac, femoral, popliteal and tibial thrombectomy, stenting of the previous aortobifem
bypass, and fasciotomy on 03/10/2025 on IV heparin drip stroke alerted on 03/12/2025 for aphasia and left upper extremity ataxia.
Head CT 03/12/2025:
1. No CT evidence for acute intracranial hemorrhage or transcortical infarct.
2. Small chronic transcortical infarct in the superolateral right frontal lobe.
3. 6 mm chronic lacunar infarct in the right basal ganglia.
4. 8 mm chronic infarct in the left caudate nucleus.
NECK CTA 03/12/2025:
1. COMPLETE OCCLUSION of both PROXIMAL ICAs.
2. Enlarged bilateral vertebral arteries.
3. 50-70% diameter stenosis at the origin of the left vertebral artery.
4. Moderately enlarged right paratracheal lymph node.
5. Moderate discogenic degenerative disease at C4/C5 with a disc-osteophyte complex causing moderate spinal cord compression and central canal stenosis.
6. Severe right neural foraminal narrowing at C5/C6.
HEAD CTA03/12/2025:
1. Collateral blood supply reaching the terminal communicating segments of both intracranial ICAs.
2. No blood flow in the cavernous segments of the ICAs.
3. 50-70% diameter stenosis in the proximal A1 segment of the right MARIA L.
4. Enlarged vertebral and basilar arteries without stenosis or occlusion.
5. Small chronic transcortical infarct in the superolateral right frontal lobe.
6. 6 mm chronic lacunar infarct in the right basal ganglia.
7. 9 mm chronic infarct in the left caudate nucleus.
Head CT 03/12/2025:No acute intracranial abnormality noted. Small old infarcts. Stable.
Labs: Cholesterol 168, LDL 109
Plan
Impressions:
I. abrupt onset of stroke like symptoms in the setting of hypotension given bilateral ICA occlusion
II. chronic infarct to right basal ganglia, left caudate nucleus and right frontal lobe
III. 50-70% diameter stenosis in the proximal A1 segment of the right MARIA L.
-encourage permissive hypertension, recommend keeping SBP >140
-LDL 109 with goal <70, increase atorvastatin from 40 to 80 mg nightly
-check hgb A1C with goal <7.0
-continue heparin gtt
-neurochecks and NIHSS per unit guidelines
-PT/OT/ST evaluations
-education material to be provided
All questions encouraged and answered, plan of care discussed with Dr. Blanc, hospitalist, nurse and patient
Consultation
Order
Date of Consultation: 03/12/25
Requesting Provider: hospitalist
Reason for Consult: aphasia
Subjective/Objective
Subjective Data
Date of Service: March 12, 2025
The patient is a 59-year-old male with a past medical history of CAD status post multiple stents, diastolic CHF, ischemic cardiomyopathy, left internal carotid artery occlusion, hypertension, hyperlipidemia, and PAD/left critical limb ischemia
status post aortobifemoral grafting with revision on 08/11/2019 presented to [facility] on 03/10/2025 with worsening left lower extremity and left foot pain now status post urgent iliac, femoral, popliteal and tibial thrombectomy, stenting of the previous
aortobifem bypass, and fasciotomy on 03/10/2025 on IV heparin drip. He was a stroke alert on 03/12/2025 for aphasia and left upper extremity ataxia. At 0615 patient was having word finding difficulties, unable to answer questions (did not know date
of , year, hospital, had difficulty naming objects, etc). Ataxia with finger to nose on the left noted. No facial droop, weakness, or dysarthria noted. Also noted to have hiccups at the same time. BP hypotensive 88/59. Stroke alert called in
ICU and tele stroke at [facility] notified of stroke. Spoke with Dr. Evangelista, neurologist at [facility], and advised Stat CT scan of the head and CT head/angio. CT head and neck with BL ICA occlusion, CT head negative for acute infarct. Heparin drip
continued. Around 1015 patient started having hiccups, expressive aphasia with garbled speech. Of note, patient noted to be hypotensive again with BP 92/57. Taken to head CT which was stable. On current exam, NIHSS 5 for confusion (able to state
year but not month), dysarthria and expressive aphasia. Not a TNK/IAT candidate, currently on heparin drip.
Objective Data
Vital Signs
Temp Pulse Resp BP Pulse Ox
98.3 F 63 18 108/57 96
03/12/25 08:02 03/12/25 09:45 03/12/25 09:30 03/12/25 09:00 03/12/25 09:45
Lab Results
03/12/25 04:17
03/12/25 04:17
PT 15.5 Sec (11.4-14.6) H 03/10/25 16:28
INR 1.20 03/10/25 16:28
APTT 98.1 Sec (23.4-35.0) H 03/12/25 04:17
Sodium 133 mmol/L (135-145) L 03/12/25 04:17
Potassium 4.2 mmol/L (3.5-5.1) 03/12/25 04:17
BUN 18 mg/dl (9-20) 03/12/25 04:17
Glucose 101 mg/dl (70-99) H 03/12/25 04:17
Calcium 8.0 mg/dl (8.4-10.2) L 03/12/25 04:17
LDL Cholesterol, Calc 109 mg/dl 03/11/25 04:18
Patient Allergies
latex Allergy (Verified 03/10/25 03:54)
Breaks Out
CVA Assessment
Onset of Stroke Symptoms
Onset of symptoms known: Yes
Date of onset of symptoms: 03/12/25
Time of onset of symptoms: 10:15
Time pt last seen normal is known: Yes
Date last time pt seen normal: 03/12/25
Time last time pt seen normal: 10:15
NIH Stroke Score
Level of Consciousness: 0 - Alert
LOC Questions: 1-Answers one correctly
LOC Commands: 0-Performs both correctly
Best Horizontal Gaze: 0-Normal
Visual Chase: 0=Normal, no visual loss
Facial Palsy: 0=Normal, symmetrical
Motor - Right Arm: 0=No drift 10 seconds
Motor - Left Arm: 0=No drift 10 seconds
Motor - Right Le-No drift 5 seconds
Motor - Left Le-No drift 5 seconds
Limb Ataxia: 1-Present in one limb
Sensation: 0-Normal
Best Language: 2-Severe aphasia
Dysarthria: 1-Mild slurring
Extinction and Inattention: 0-No abnormality
NIH Total Score:: 5
Tenecteplase Contraindications
Inclusion and Exclusion criteria reviewed: Yes
Reasons for NON-Tx with Thrombolytics ABSOLUTE Exclusions: On IV Heparin within last 48hrs and elevated PTT
IAT Contraindications: NIHSS < 6 and Chronic intracranial occlusion
Modified Burnet Score (MRS)
-
Modified Jodie Scale (mRS): Moderately severe disability. Unable to attend to bodily needs/walk.
Score: 4
Physical Exam
-
General: Older than Stated Age
HEENT: Normocephalic, Atraumatic and Anicteric
Neck: Full Range of Motion
Respiratory: No Dyspnea
Cardiac: No JVD
GI: Non-distended
Extremities: Other (LLE wrapped)
Psych: Unremarkable
Extended Neurological Exam
Mood & Affect: Mood Unremarkable
Attention Span & Concentration: Awake, Alert, Interactive and Mild Difficulty with 2 Step Request
Speech: Expressive Aphasia
Cranial Nerve II: Left Eye: Visual Chase Grossly Intact
Cranial Nerve II: Right Eye: Visual Chase Grossly Intact
Cranial Nerves III, IV, : Extraocular Movement: Extraocular Movement Full in all Directions
Cranial Nerve VII: Facial Symmetry: Normal Facial Symmetry
Cranial Nerve VIII: Hearing: Unremarkable Hearing to Normal Conversational Volume
Muscle Strength, Overall: Full Throughout
Pronator Drift: No Drift in Upper Extremities and No Drift in Lower Extremities
Coordination: Other (ataxia LUE)
Data Reviewed
-
CT-A: Report Reviewed and Image Reviewed
CT Head: Report Reviewed and Image Reviewed
EEG: Report Reviewed
Labs: Report Reviewed
Lipid Profile: Report Reviewed
Reviewed with: Physician, Nurse and Family
Old Records: Summarized
Medications
-
Active Medications
Generic Name Dose Route Start Last Admin
Trade Name Freq PRN Reason Stop Dose Admin
Acetaminophen 650 mg 03/10/25 14:31
Acetaminophen 325 Mg Tablet PO 04/07/25 14:30
Q4HPRN PRN
mild pain/MADDEN/temp> 100.4F
Acetaminophen 650 mg 03/12/25 13:00
Acetaminophen 325 Mg Tablet PO 03/13/25 18:01
QID ELAN
Aspirin 81 mg 03/11/25 08:00 03/12/25 08:32
Aspirin 81 Mg Chewable Tablet PO 04/08/25 07:59 81 mg
DAILY ELAN Administration
Atorvastatin Calcium 40 mg 03/10/25 18:00 03/11/25 17:48
Atorvastatin (Lipitor) 40 Mg Tablet PO 04/07/25 17:59 40 mg
QPM ELAN Administration
Carvedilol 6.25 mg 03/11/25 12:00 03/12/25 08:32
Carvedilol 6.25 Mg Tablet PO 04/08/25 11:59 6.25 mg
BID ELAN Administration
Gabapentin 100 mg 03/12/25 16:00
Gabapentin 100 Mg Capsule PO 04/09/25 15:59
TID ELAN
Hydromorphone HCl 0.5 mg 03/10/25 14:31 03/11/25 21:00
Hydromorphone 0.5 Mg/0.5 Ml Syringe IV 03/24/25 14:30 0.5 mg
Q4HPRN PRN Administration
severe pain
Heparin Sodium 25,000 units in 250 mls @ 0 mls/hr 03/10/25 14:31 03/11/25 12:04
Heparin 06836 Units/250 Ml IV 250 mls
PER PROTOCOL ELAN Administration
Protocol
Per Protocol
Nicotine 7 mg 03/10/25 16:00 03/12/25 08:34
Nicotine 7 Mg Patch TRANSDERM 04/07/25 15:59 Not Given
DAILY ELAN
Ondansetron HCl 4 mg 03/10/25 14:31
Ondansetron 4 Mg/2 Ml Vial IV 04/07/25 14:30
Q6HPRN PRN
nausea and vomiting
Oxycodone HCl 5 mg 03/10/25 14:31 03/12/25 08:54
Oxycodone 5 Mg Regular Release Tablet PO 03/24/25 14:30 5 mg
Q4HPRN PRN Administration
moderate pain
Oxycodone HCl 10 mg 03/10/25 14:31 03/12/25 00:13
Oxycodone 10 Mg Regular Release Tablet PO 03/24/25 14:30 10 mg
Q4HPRN PRN Administration
severe pain
Patch Removal 1 patch 03/10/25 22:00 03/11/25 22:11
Remove Nicotine Patch REMOVE 04/07/25 21:59 Not Given
HS ELAN
Polyethylene Glycol 17 grams 03/10/25 14:31
Polyethylene Glycol Powder 17 Grams Packet PO 04/07/25 14:30
DAILYPRN PRN
constipation
Senna/Docusate Sodium 1 tablet 03/12/25 10:00
Docusate W/Senna (Laine-Colace) Tablet PO 04/09/25 09:59
BID ELAN
Sodium Chloride 0 flush 03/11/25 04:00
Sodium Chloride 0.9% (Flush) Syringe IV 04/08/25 03:59
PER PROTOCOL ELAN
Home Medications
�Medication �Instructions �Recorded
aspirin 81 mg chewable tablet 81 mg PO DAILY 08/18/19
Past History
Past History
ED Past Medical History: CAD, Other (Vascular disease) and Other (Coronary disease with stents and MRIs, diastolic dysfunction with EF of 50%, questionable previous stroke, known left internal carotid occlusion, PAD with aortobifemoral grafting,
hyperlipidemia, hypertension)
ED Past Surgical History: Cardiac and Other (Peripheral vascular disease)
Family/Social History
Tobacco: Smoker
Alcohol: None
Drug: None
Personal:
Living: with family
Employment: Employed
Family History: Other (Noncontributory)

Documented by User: Pa Blanc MD 03/12/25 13:38
CVA Assessment
NIH Stroke Score
NIH Total Score:: 5
Modified Burnet Score (MRS)
-
Score: 4
--- NOTE | 2025-03-12 12:00 | PTCARENOTE ---
No changes. Continuing to monitor his BP.
[2025-03-12] MEDS: HEPARIN 25000 UNITS/250 ML IV (12:19)
[2025-03-12] MEDS: SENOKOT-S 1 TABLET PO ×2 (12:25→19:49)
[2025-03-12] MEDS: TYLENOL 650 MG PO ×3 (12:27→21:38)
--- NOTE | 2025-03-12 13:48 | CON.CAR ---
Addendum entered and electronically signed by Romario Blackwell DO 03/12/25 19:26:
I saw and examined the patient.
The Central Office Associate's note was reviewed and I agree with the note.
Comment:
Plan:
Presented 03/10 2025 with left lower extremity critical limb ischemia. Now s/p left iliofemoral, pop, tibial thrombectomy with aortoiliac stent, fasciotomy on 03/10/2025
Patient noted to have PAT in academic affairs specialist of 12/11/2024 lasting approximately 15 minutes with spontaneous conversion to sinus rhythm. Per review of telemetry he had additional episodes of tachycardia/atrial fibrillation on morning of 03/12/2025 with
some hypotension.
Plan:
Cont low dose beta magdy for rate control. Continue to try to avoid hypotension as this appeared to exacerbate his neurologic symptoms in setting of b/l carotid obstruction.
Cont anticoagulation consider transition to oral anticoagulation once no further procedures are planned and ok with neuro and vascular.
Check echo
Pt now on high intensity statin therapy. Goal LDL at least less than 70. LDL was not at goal at 109.
Smoking cessation is a must.
Discussed with nursing.
Original Note:
Consultation
Consultation Request
Date/Time Consultation Requested: 03/12/2025
Date/Time Consultation Performed: 03/12/2025
Requesting Provider: Dr. Mora
Performing Provider: Aura David PA-C for Dr. Romario Blackwell
Reason for Consultation: Arrhythmia
Medical History
-
History of Present Illness:
59-year-old male with a past medical history of CAD status post multiple stents, HFpEF, ischemic cardiomyopathy, bilateral carotid artery occlusion, hypertension, hyperlipidemia, and PAD/left critical limb ischemia status post aortobifemoral
grafting with revision on 08/11/2019 presented to [facility] on 03/10/2025 with worsening left lower extremity and left foot pain now status post urgent iliac, femoral, popliteal and tibial thrombectomy, stenting of the previous aortobifem bypass, and
fasciotomy on 03/10/2025 on IV heparin drip following surgery. Patient was known to have speech difficulty, aphasia and left upper extremity ataxia on 03/12/2025. Stroke alert was activated. Head CT showed no acute acute intracranial hemorrhage or
infarct. There were chronic lacunar infarcts of right basal ganglia and left caudate nucleus. CTA of head and neck showed complete occlusion of bilateral proximal ICAs with collateral blood flow supply reaching terminal communicating segments of
both intracranial ICAs. 50 to 70% stenosis of origin of left vertebral artery and 50-70% diameter stenosis in the proximal A1 segment of the right MARIA L. Interestingly patient was noted to be hypotensive during his altered mental status. Patient
had a second episode of similar presentation several hours later and was once again found to be hypotensive. Cardiology being asked to see patient for concerns of atrial arrhythmias. Upon review of telemetry it looks like patient had PAT around
4:20 am lasting approximately 15 minutes. He then had additional episodes of tachycardia later this morning with heart rates in the 150s to 160s which appears to be atrial fibrillation. Patient also having sinus rhythm with PACs and frequent
atrial bigeminy.
Patient reports prior to admission patient runs to [employer] facilities. He is generally active around the sites and activity is mostly limited by claudication symptoms. He denies exertional chest pain, shortness of breath. He denies having
palpitations, dizziness or lightheadedness prior to admission. He reports he has not seen a doctor in some time and takes only an aspirin as an outpatient.
PMH:
CAD
status post multiple cardiac stents in [place]
Heart failure with mildly reduced ejection fraction
Ischemic cardiomyopathy
PAD/critical limb ischemia
s/p left iliofemoral, pop, tibial thrombectomy with aortoiliac stent, fasciotomy on 03/10/2025
s/p aortobifemoral grafting with revision on 08/11/2019
vascular surgery in [place] in 2017
Bilateral carotid occlusion
Hypertension
Hyperlipidemia
Tobacco abuse
Past Medical History
Past Medical History: Other (See HPI)
Past Surgical History: Other (Vascular surgery in [place] in 2017, Redo open Aortobifemoral graft 07/2019)
Social History
Tobacco: Smoker (Since age 9)
Alcohol: None
Drug: None
Personal:
Living: With Family ([id number])
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
Family History
Family History: Other (Both parents mother and father had strokes and are )
Allergies / Home Medications
Allergy/AdvReac Type Severity Reaction Status Date / Time
latex Allergy Breaks Out Verified 03/10/25 03:54
�Medication �Instructions �Recorded �Confirmed �Type
aspirin 81 mg chewable tablet 81 mg PO DAILY 08/18/19 03/10/25 Rx
Review of Systems
-
History Source: Patient
All other systems: Negative unless noted
Physical Exam
Vital Signs
Temp Pulse Resp BP Pulse Ox
98.3 F 71 18 111/61 95
03/12/25 11:35 03/12/25 13:15 03/12/25 13:15 03/12/25 12:00 03/12/25 12:45
GEN: No distress, awake, Ox3, lying in bed
HEENT: supple, anicteric, mmm
LUNGS: CTA, no wheezes/rales
CV: Reg, S1/S2, no murmur, rub or gallop
ABD: soft, BS+, NT/ND
EXT: Right lower extremity no edema, clubbing or cyanosis. Left lower extremity with +1 pedal edema, lower leg wrapped in French, foot with good perfusion
NEURO: Gross non-focal
SKIN: No rash, warm, dry, pink
Lab Results
03/12/25 04:17
03/12/25 04:17
Impression / Plan
-
PCP: unknown
[employer]: Saw Dr. GAUDENCIO Mock in 2019 but none since
Impression:
Presented 03/10 2025 with left lower extremity critical limb ischemia
PAD/critical limb ischemia
s/p left iliofemoral, pop, tibial thrombectomy with aortoiliac stent, fasciotomy on 03/10/2025
s/p aortobifemoral grafting with revision on 08/11/2019
vascular surgery in [place] in 2018
TIA/Stroke with left sided ataxia, aphasia/dysarthria 03/12/2025
Bilateral carotid occlusion with collaterals, on imaging
CAD
status post multiple cardiac stents in [place]
Heart failure with reduced ejection fraction
Ischemic cardiomyopathy
Hypertension
Hyperlipidemia
Tobacco abuse
Echo 03/12/2025: Ordered
Echo 09/08/19 - LV: EF 40%, global hypokinesis, intermediate diastolic function. RV: nl. LA: nl. RA: nl. MV: mild MR, mild MAC. AV: mild sclerosis. TV: trace TR. PV: nl. Aorta: nl.
Plan:
- Presented 03/10 2025 with left lower extremity critical limb ischemia. Now s/p left iliofemoral, pop, tibial thrombectomy with aortoiliac stent, fasciotomy on 03/10/2025
- Patient noted to have PAT in academic affairs specialist of 12/11/2024 lasting approximately 15 minutes with spontaneous conversion to sinus rhythm. Per review of telemetry he had additional episodes of tachycardia/atrial fibrillation on morning of 03/12/2025
with some hypotension.
- Check echocardiogram
-Add on TSH to morning labs
- Continue low-dose beta-magdy which was de-escalated from 6.25 mg twice a day to 3.125 mg to prevent hypotension. May consider switching to Toprol which may provide better rate control and less hypotensive response.
- Will need eventual anticoagulation for paroxysmal atrial fibrillation and vascular disease. Timing to be determined by vascular surgery
- Patient developed aphasia and left sided ataxia 03/12/2025 and stroke alert was called. Head CT showed old infarcts and no acute intracranial abnormality. CTA of head and neck show showed complete occlusion of bilateral proximal ICAs with
collateral blood flow supply reaching terminal communicating segments of both intracranial ICAs. Neurologic event occurred while patient was on heparin drip. Doubt cardioembolic event given ongoing heparin drip. Suspect may be secondary to
hypotension and cerebral hypoperfusion.
- Prestatin lipids TC 168, HDL 35, LDL 109, triglycerides 120. Patient now on high dose atorvastatin. Goal LDL less than 70 and ideally closer to 55
- Discussed importance of smoking sensation.
HPI :
59-year-old male with a past medical history of CAD status post multiple stents, HFpEF, ischemic cardiomyopathy, bilateral carotid artery occlusion, hypertension, hyperlipidemia, and PAD/left critical limb ischemia status post aortobifemoral
grafting with revision on 08/11/2019 presented to [facility] on 03/10/2025 with worsening left lower extremity and left foot pain now status post urgent iliac, femoral, popliteal and tibial thrombectomy, stenting of the previous aortobifem bypass, and
fasciotomy on 03/10/2025 on IV heparin drip following surgery. Patient was known to have speech difficulty, aphasia and left upper extremity ataxia on 03/12/2025. Stroke alert was activated. Head CT showed no acute acute intracranial hemorrhage or
infarct. There were chronic lacunar infarcts of right basal ganglia and left caudate nucleus. CTA of head and neck showed complete occlusion of bilateral proximal ICAs with collateral blood flow supply reaching terminal communicating segments of
both intracranial ICAs. 50 to 70% stenosis of origin of left vertebral artery and 50-70% diameter stenosis in the proximal A1 segment of the right MARIA L. Interestingly patient was noted to be hypotensive during his altered mental status. Patient
had a second episode of similar presentation several hours later and was once again found to be hypotensive. Cardiology being asked to see patient for concerns of atrial arrhythmias. Upon review of telemetry it looks like patient had PAT around
4:20 am lasting approximately 15 minutes. He then had additional episodes of tachycardia later this morning with heart rates in the 150s to 160s which appears to be atrial fibrillation. Patient also having sinus rhythm with PACs and frequent
atrial bigeminy.
Patient reports prior to admission patient runs to [employer] facilities. He is generally active around the sites and activity is mostly limited by claudication symptoms. He denies exertional chest pain, shortness of breath. He denies having
palpitations, dizziness or lightheadedness prior to admission. He reports he has not seen a doctor in some time and takes only an aspirin as an outpatient.
Data Reviewed
-
EKG: Report Reviewed by me, Discussed with Physician, Discussed with Nurse, Discussed with Patient and Discussed with Family
Radiology: Report Reviewed by me, Discussed with Physician, Discussed with Nurse and Discussed with Patient
CT Scan: Report Reviewed by me, Discussed with Physician, Discussed with Nurse, Discussed with Patient and Discussed with Family
Labs: Labs Reviewed by me, Discussed with Physician, Discussed with Nurse, Discussed with Patient and Discussed with Family
Old Records: Reviewed
--- NOTE | 2025-03-12 15:32 | CM ---
Met with patient. Now aphasic. M-I-L with patient. Discharge plan of care: TBD.
[2025-03-12] MEDS: NEURONTIN 100 MG PO ×2 (15:37→21:38)
--- NOTE | 2025-03-12 17:14 | W.PN.UPDATE ---
Update Note
Progress Note Update
LLE dressing changed by this provider, medial fasciotomy site with viable muscle, CDI. Dressing replaced and CDI. Lateral calf nayan CDI and well approximated, posterior calf remains soft.
--- NOTE | 2025-03-12 17:15 | PTCARENOTE ---
OOB to the chair w/walker. He did not weight bear on the left L/E. Having diner in the chair. Reports pain 1 out of 10. Call rangel within reach. Safe environment maintained.
[2025-03-12] MEDS: LIPITOR 80 MG PO (17:34)
[2025-03-12] MEDS: COREG 3.125 MG PO (20:35)
--- NOTE | 2025-03-12 21:00 | PTCARENOTE ---
Pt received start of shift, HR SR w/ PACs and occasional PVCs on telemetry. L DP pulse continues to be absent w/ doppler. L AT/PT pulses present w/ doppler. L groin site dressing w/ old drainage and local swelling. Pain rated 9/10 in LLE at
fasciotomy site, PRN catherine administered - see OCT. Voiding yellow urine. Neuro intact. Heparin infusing at 1200u/hr.
[2025-03-12] MEDS: REMOVE NICOTINE PATCH REMOVE (21:42)
[2025-03-13] VITALS (19 sets, daily range): BP systolic 86–117; BP diastolic 24–72; BMI 30.8
--- NOTE | 2025-03-13 00:44 | PTCARENOTE ---
Pt reassessed. Pt states feeling in L foot is slightly 'more normal' and the numbness/tingling has decreased. No further changes in assessment
--- NOTE | 2025-03-13 02:23 | DOWNTIME ---
There was a [employer] Downtime on 03/13/2025 from 0100 to 03/13/2025 at 0220. Downtime documentation of patient's care, including medication administrations, has been reconciled in the electronic record per guidelines. Refer to the
patient's paper chart under the miscellaneous tab to see printed paper medication records and downtime forms.
[2025-03-13 04:24] LABS: Hematocrit 27.3 % (39.0-52.0); Hemoglobin 9.3 g/dL (13.0-18.0); Mean Corp Hgb Conc. 34.1 g/dL (33.0-37.0); Mean Corpuscular Volume 91.0 fL (80.0-94.0); Platelet Count 184 10^3/uL (130-400); Red Cell Dist. Width 13.2 % (11.5-14.5)
[2025-03-13 04:30] LABS: APTT 82.8 Sec (23.4-35.0)
[2025-03-13 04:48] LABS: Blood Urea Nitrogen 15 mg/dl (9-20); Calcium 8.3 mg/dl (8.4-10.2); Carbon Dioxide 30 mmol/L (22-30); Chloride 104 mmol/L (98-107); Estimated Creatinine Clearance 98 ml/min; Glucose 94 mg/dl (70-99); Potassium 4.0 mmol/L (3.5-5.1); Sodium 134 mmol/L (135-145); eGFR > 60.00
--- NOTE | 2025-03-13 07:45 | PTCARENOTE ---
Received pt sitting up in bed. He is awake and alert. He reports right LE discomfort where his fasciotomy is 5/10. Heparin drip 1200units/hr via Right FA#20g protective catheter. Right hand IV flushed, leaked and removed. Left wrist #20g protective
catheter flushed and patent. Lungs CTA. Intermittent moist cough. RA pulse ox 99%. +BSX4. Voiding. Left L/E +1-2 edema. Left groin ROBBY dressing unchanged, old drainage present. Left upper thigh edema unchanged. Scrotum with blue ecchymosis. He was
informed of the plan of care and that he needs to start watching his HF and stroke videos. I informed him of the importance of recognizing the S/S of stroke and what to do. Also reinforced a low fat diet and the importance of combining medicines,
diet modifications, & smoking cessation for best outcomes. 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
not stop working until after 11pm every day, never has a day off. He is concerned that he may lose his housing or job if he is not able to go back to work like before, however he did tell me that he couldn'tdo those long hours and travel daily. Safe
environment maintained. Supportive care continues.
--- NOTE | 2025-03-13 07:50 | PTCARENOTE ---
Vascular surgery team at the bedside. LLE dressing changed by [facility]. Plan is to have a wound vac applied by them and also a new ROBBY dressing to his left groin incision. He is aware of the plan. Now has weak left +DP signal. He also
reported improved sensation.
[2025-03-13] MEDS: NEURONTIN 100 MG PO ×3 (07:53→22:30)
[2025-03-13] MEDS: LOW STRENGTH ASPIRIN 81 MG PO (07:53)
[2025-03-13] MEDS: TYLENOL 650 MG PO ×3 (07:53→17:42)
[2025-03-13] MEDS: COREG 3.125 MG PO ×2 (07:56→19:50)
--- NOTE | 2025-03-13 08:08 | W.PN.VS ---
Addendum entered and electronically signed by Theodore Kamara III, MD 03/13/25 18:03:
This patient was seen and examined in collaboration with Dr. Pa. I agree with the history and physical exam as well as the assessment and plan.
Signed:
Theodore Kamara III, MD
Vascular Surgery
[facility]
Original Note:
Today's Communication / Plan
-
Plan:
- Convert heparin infusion to oral anticoagulant
- Will change LLE fasciotomy site dressing w wound vac today
- Will change L groin PICCO dressing today
- Consulting wound care
- Encourage smoking cessation
- Encourage incentive spirometry
- Continue neurovascular checks
- Ok to get OOB and initiate PT as tolerated
- From a vascular surgery perspective, signed off
Assessment/Plan
-
59M POD 3 LLE iliofemoral, pop, tibial thrombectomy with aortoiliac stent and 4 compartment fasciotomy for ALI, recovering well.
AVSS, no new concerns today from perspective of LLE surgical site healing.
Plan:
- Convert heparin infusion to oral anticoagulant
- Will change LLE fasciotomy site dressing w wound vac today
- Will change L groin PICCO dressing today
- Consulting wound care
- Encourage smoking cessation
- Encourage incentive spirometry
- Continue neurovascular checks
- Ok to get OOB and initiate PT as tolerated
- From a vascular surgery perspective, signed off
-
Total Time Spent with Patient (in minutes): 10
Subjective Data
-
Date of Service: March 13, 2025
Pt without new complaints this morning. Up in bed & conversant.
Objective Data
-
Vital Signs
Temp Pulse Resp BP Pulse Ox
98.4 F 80 17 110/49 99
03/13/25 07:58 03/13/25 07:56 03/13/25 04:30 03/13/25 07:56 03/13/25 07:58
Intake and Output
03/12/25 03/13/25 03/14/25
06:59 06:59 06:59
Intake Total 888 / 888 884 / 884
Output Total 1700 / 1700 1225 / 1225
Balance -812 / -812 -341 / -341
Intake:
Oral fluids 720 / 720 240 / 240
IV fluids (Total) 168 / 168 644 / 644
Heparin 168 / 168 144 / 144
NSS 500 / 500
Output:
Urine, Kamara 1400 / 1400
Urine, Voided 300 / 300 1225 / 1225
Lab Results
03/13/25 03:59
03/13/25 03:59
Calcium 8.3 mg/dl (8.4-10.2) L 03/13/25 03:59
Magnesium 2.0 mg/dl (1.6-2.3) 03/11/25 04:18
Total Bilirubin 0.6 mg/dl (0.2-1.3) 03/10/25 04:38
AST 29 U/L (17-59) 03/10/25 04:38
ALT 26 U/L (0-50) 03/10/25 04:38
Alkaline Phosphatase 95 U/L (38-126) 03/10/25 04:38
Total Protein 7.0 g/dl (6.3-8.2) 03/10/25 04:38
Albumin 4.3 g/dl (3.5-5.0) 03/10/25 04:38
Physical Exam
-
General: awake, alert, propped up in bed
Pulm: non-labored respirations
Abdomen: non-distended
MSK/Vascular: LLE with senait bandage, removed at bedsite - fasciotomy site clean without purulence/odor; L foot warm; L groin PICCO dressing dry & intact, some bruising on L scrotum unchanged from yesterday
--- NOTE | 2025-03-13 08:17 | W.PN.INTV ---
Today's Communication / Plan
Recommendations
Avoid hypotension
ASA + Eliquis
High intensity statin
Strongly encouraged cessation of cigarette smoking
Outpatient PFTs + LDCT chest
Continue neurochecks; recommendations per neuro appreciated
Continue to monitor for additional changes in mental status with immediate notification to neurology if change in neurological status occurs
Patient is stable for downgrade out of ICU to telemetry. No additional recommendations at this time. Chemistry Intern/Pulmonary service will now sign off. Please reconsult if there are any additional questions/concerns, or if patient's respiratory
status deteriorates.
Assessment
-
59-year-old male patient was admitted with critical limb ischemia, taken to the OR on 03/10, s/p left aortobifemoral limb thrombectomy, left femoral bovine pericardial patch angioplasty, balloon expandable stent placement in proximal left iliac,
self-expanding stent placement and left iliac limb, SFA thrombectomy, left below-knee popliteal artery cutdown and Jenniffer thrombectomy of below-knee popliteal artery, anterior tibial artery, left distal posterior tibial cutdown and thrombectomy of
posterior tibial artery and plantar artery with 4 compartment fasciotomy by vascular surgery service (OR date: 03/10/2025)
Continue observation following procedure
Follow neurovascular checks per protocol
Currently on aspirin and Lipitor 40 mg nightly; Heparin infusion changed to Eliquis
Stroke alert called yesterday morning - continue to monitor with neurochecks, can reduce down to q4hr for now
Neuro consulted
Avoid hypotension given he has flow limitation into [employer] as CTA head from earlier yesterday morning shows complete occlusion of bilateral proximal ICAs, with significant cerebrovascular disease; of note, his vertebral + basilar arteries are enlarged
without stenosis or occlusion
Maintain MAP >65-70, avoiding hypotension given significant cerebrovascular disease/carotid artery disease/PAD
Cardiac history noted
Monitor on telemetry
Pain control per protocol
Started scheduled tylenol yesterday and started low dose gabapentin to help reduce opiate use
No known history of lung disease however longstanding history of smoking and does report expectoration in the mornings.
CXR reviewed, chronically elevated right hemidiaphragm
No prior PFTs for review � this can be performed as an outpatient
Would also recommend LDCT chest as an outpatient given his significant tobacco smoking history for lung cancer screening purposes (he started smoking at age 8); strongly encouraged him to stop smoking now which he is amenable to quitting cold
turkey; nicotine patch offered, patient declined
Encouraged IS
Diet advancement per protocol
Aspiration precautions
Creat at baseline, follow UO
Critical I/Os
Replete electrolytes as needed
No signs/symptoms suspicious for infectious etiology at this time
Will observe off antibiotics for now
Follow temperatures/CBC
Hb and platelets postoperatively stable, although slight drop in Hb which is 9.3 this morning from 9.9 yesterday. Transfuse if need to keep Hb >7-8 g/dL
DVT prophylaxis: On heparin drip currently.
Encouraged OOB/PT/OT/ambulation once cleared by surgical team
Other medical diagnoses:
- Chronically elevated right hemidiaphragm (reviewed CXR from 2019)
- History of smoking, suspect underlying COPD. Recommend outpatient pulmonary follow up. Also needs LDCT for lung cancer screening. Information added to d/c section
- H/o CAD, PCI. Unfortunately continues to smoke. We talked about smoking cessation
- HTN, HLD
Patient is stable for downgrade out of ICU to telemetry. No additional recommendations at this time. Chemistry Intern/Pulmonary service will now sign off. Thank you for allowing us to be involved in the care of this patient. Please reconsult if there
are any additional questions/concerns, or if patient's respiratory status deteriorates.
Data:
CXR 02/2025: 1. Mild right lung volume loss with mild left to right mediastinal shift and mild elevation of the right hemidiaphragm.
2. Stent in the right coronary artery.
CTA Abd/pelvis 02/2025: No evidence of abdominal aortic dissection or aneurysm.
Marked narrowing of the proximal celiac axis similar to prior study. Bilateral renal artery stenoses again noted.
Postoperative changes of the abdominal aorta with bypass noted, occlusion of the left aspect of the bypass new in the interval since prior CTA. Right aspect of bypass is narrowed though patent.
Reconstitution of left femoral bifurcation. Right femoral artery patent. Bilateral femoral arteries patent. Right popliteal artery patent.
Left popliteal artery occluded proximal to the tibial-peroneal junction.
Right calf arteries patent. Left calf arteries not opacified.
ECHO 08/2019: 1. Normal left ventricular size with mild global hypokinesis, ejection fraction 40%
2. Mild mitral regurgitation, mitral annular calcification and normal left
atrium
3. Mild aortic sclerosis without stenosis or regurgitation
4. Normal right heart with probable normal pulmonary artery systolic pressure
5. Bilateral pleural effusions.
CTA head/neck 03/12/2025:
NECK CTA:
1. COMPLETE OCCLUSION of both PROXIMAL ICAs.
2. Enlarged bilateral vertebral arteries.
3. 50-70% diameter stenosis at the origin of the left vertebral artery.
4. Moderately enlarged right paratracheal lymph node.
5. Moderate discogenic degenerative disease at C4/C5 with a disc-osteophyte complex causing moderate spinal cord compression and central canal stenosis.
6. Severe right neural foraminal narrowing at C5/C6.
HEAD CTA:
1. Collateral blood supply reaching the terminal communicating segments of both intracranial ICAs.
2. No blood flow in the cavernous segments of the ICAs.
3. 50-70% diameter stenosis in the proximal A1 segment of the right MARIA L.
4. Enlarged vertebral and basilar arteries without stenosis or occlusion.
5. Small chronic transcortical infarct in the superolateral right frontal lobe.
6. 6 mm chronic lacunar infarct in the right basal ganglia.
7. 9 mm chronic infarct in the left caudate nucleus.
Total time spent today was 58 minutes for this encounter. Time includes reviewing laboratory test/imaging results, reviewing pertinent medical records, obtaining and reviewing medical history, performing an appropriate exam, ordering medications,
tests and procedures. Time also includes documentation of this encounter, coordinating patient care and communicating with other healthcare professionals. Total time does not include separately billed tests performed on this date of service.
Subjective Dataa
Subjective Data
Date of Service:
Date of Service: March 13, 2025
Chief Complaint: Chemistry Intern Follow Up and Pulmonary Follow Up
Subjective:
Patient was seen and evaluated today at bedside. He feels well, denying chest pain, shortness of breath, MADDEN, nausea, fevers or chills. Heart rate 65, BP 109 59, breathing comfortably on room air saturating 99%.
Review of Systems
General: Other (Negative unless mentioned above)
Objective Data
Data Reviewed
Vital Signs / I&O / Oxygen:
Vital Signs
Temp Pulse Resp BP Pulse Ox
98.4 F 76 18 103/61 99
03/13/25 07:58 03/13/25 09:15 03/13/25 09:15 03/13/25 09:00 03/13/25 08:00
Intake and Output
03/12/25 03/13/25 03/14/25
06:59 06:59 06:59
Intake Total 888 / 888 884 / 884
Output Total 1700 / 1700 1225 / 1225 280 / 280
Balance -812 / -812 -341 / -341 -268 / -268
SaO2 99
Nasal Cannula flow liters per 2
minute
Physical Exam
General: Respiratory Distress (negative), Comfortable, Chills (negative) and Sweats (negative)
HEENT: Normocephalic and Anicteric
Cardiovascular: S1-S2 and Peripheral Edema (negative)
Respiratory: Clear, Wheeze (negative), Crackles (negative), Rhonchi (negative) and Non-Labored Respirations
GI: Soft, Non Distended, Non Tender and Normal Bowel Sounds
Neurology: AO x 3, No Motor Deficits and Tremors (negative)
Skin: Warm, Dry, Cyanosis (negative) and Jaundice (negative)
Labs/Micro/Reports
Lab Data
03/13/25 03:59
03/13/25 03:59
Laboratory Results
03/13/25
03:59
APTT 82.8 H
--- NOTE | 2025-03-13 09:07 | W.PN.CARDCBS ---
Today's Communication / Plan
-
Cont low dose beta magdy for rate control with parameters.
Continue to try to avoid hypotension as this appeared to exacerbate his neurologic symptoms in setting of b/l carotid obstruction.
Cont anticoagulation consider transition to oral anticoagulation once no further procedures are planned and ok with neuro and vascular.
Echo reviewed and EF preserved with mild MR and TR.
Pt now on high intensity statin therapy. Goal LDL at least less than 70. LDL was not at goal at 109. Recheck lipids as outpt
Impression / Plan
-
PCP: unknown
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
Impression:
Presented 03/10 2025 with left lower extremity critical limb ischemia
PAD/critical limb ischemia
s/p left iliofemoral, pop, tibial thrombectomy with aortoiliac stent, fasciotomy on 03/10/2025
s/p aortobifemoral grafting with revision on 08/11/2019
vascular surgery in [place] in 2018
TIA/Stroke with left sided ataxia, aphasia/dysarthria 03/12/2025
Bilateral carotid occlusion with collaterals, on imaging
PAT/PAFib
CAD
status post multiple cardiac stents in [place]
Heart failure with reduced ejection fraction
Ischemic cardiomyopathy
Hypertension
Hyperlipidemia
Tobacco abuse
Echo 09/08/19 - LV: EF 40%, global hypokinesis, intermediate diastolic function. RV: nl. LA: nl. RA: nl. MV: mild MR, mild MAC. AV: mild sclerosis. TV: trace TR. PV: nl. Aorta: nl.
Echo 03/12/2025: EF 55-60% with dilated RV, mild eccentric MR, mild TR
Plan:
History: Presented 03/10 2025 with left lower extremity critical limb ischemia. Now s/p left iliofemoral, pop, tibial thrombectomy with aortoiliac stent, fasciotomy on 03/10/2025
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 Per review of telemetry he had additional episodes of tachycardia/atrial fibrillation on morning of 03/12/2025 with
some hypotension.
Cont low dose beta magdy for rate control with parameters.
Continue to try to avoid hypotension as this appeared to exacerbate his neurologic symptoms in setting of b/l carotid obstruction.
Cont anticoagulation consider transition to oral anticoagulation once no further procedures are planned and ok with neuro and vascular.
Echo reviewed and EF preserved with mild MR and TR.
Pt now on high intensity statin therapy. Goal LDL at least less than 70. LDL was not at goal at 109. Recheck lipids as outpt
Cont vascular post op care as per Vascular
Smoking cessation is a must.
Discussed with nursing.
Discussed with family at bedside.
HPI :
59-year-old male with a past medical history of CAD status post multiple stents, HFpEF, ischemic cardiomyopathy, bilateral carotid artery occlusion, hypertension, hyperlipidemia, and PAD/left critical limb ischemia status post aortobifemoral
grafting with revision on 08/11/2019 presented to [facility] on 03/10/2025 with worsening left lower extremity and left foot pain now status post urgent iliac, femoral, popliteal and tibial thrombectomy, stenting of the previous aortobifem bypass, and
fasciotomy on 03/10/2025 on IV heparin drip following surgery. Patient was known to have speech difficulty, aphasia and left upper extremity ataxia on 03/12/2025. Stroke alert was activated. Head CT showed no acute acute intracranial hemorrhage or
infarct. There were chronic lacunar infarcts of right basal ganglia and left caudate nucleus. CTA of head and neck showed complete occlusion of bilateral proximal ICAs with collateral blood flow supply reaching terminal communicating segments of
both intracranial ICAs. 50 to 70% stenosis of origin of left vertebral artery and 50-70% diameter stenosis in the proximal A1 segment of the right MARIA L. Interestingly patient was noted to be hypotensive during his altered mental status. Patient
had a second episode of similar presentation several hours later and was once again found to be hypotensive. Cardiology being asked to see patient for concerns of atrial arrhythmias. Upon review of telemetry it looks like patient had PAT around
4:20 am lasting approximately 15 minutes. He then had additional episodes of tachycardia later this morning with heart rates in the 150s to 160s which appears to be atrial fibrillation. Patient also having sinus rhythm with PACs and frequent
atrial bigeminy.
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 He is generally active around the sites and activity is mostly limited by claudication symptoms. He denies exertional chest pain, shortness of breath. He denies having
palpitations, dizziness or lightheadedness prior to admission. He reports he has not seen a doctor in some time and takes only an aspirin as an outpatient.
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
Subjective
Date of Service: March 13, 2025
Pt seen and examined. No cp or dyspnea
Objective
Labs:
03/13/25 03:59
03/13/25 03:59
Labs
Hgb 9.3 g/dL (13.0-18.0) L 03/13/25 03:59
Hct 27.3 % (39.0-52.0) L 03/13/25 03:59
Plt Count 184 10^3/uL (130-400) 03/13/25 03:59
PT 15.5 Sec (11.4-14.6) H 03/10/25 16:28
INR 1.20 03/10/25 16:28
APTT 82.8 Sec (23.4-35.0) H 03/13/25 03:59
Sodium 134 mmol/L (135-145) L 03/13/25 03:59
Potassium 4.0 mmol/L (3.5-5.1) 03/13/25 03:59
BUN 15 mg/dl (9-20) 03/13/25 03:59
Creatinine 0.8 mg/dL (0.7-1.3) 03/13/25 03:59
Glucose 94 mg/dl (70-99) 03/13/25 03:59
Vital Signs and I&O:
Vital Signs
Temp Pulse Resp BP Pulse Ox
98.4 F 72 9 105/54 99
03/13/25 07:58 03/13/25 08:15 03/13/25 08:15 03/13/25 08:00 03/13/25 08:00
Vital Signs
Temp Pulse Resp BP Pulse Ox
98.4 F 72 9 105/54 99
03/13/25 07:58 03/13/25 08:15 03/13/25 08:15 03/13/25 08:00 03/13/25 08:00
Intake & Output
03/11/25 03/12/25 03/13/25 03/14/25
06:59 06:59 06:59 06:59
Intake Total 748 / 748 888 / 888 884 / 884
Output Total 1260 / 1260 1700 / 1700 1225 / 1225 280 / 280
Balance -512 / -512 -812 / -812 -341 / -341 -268 / -268
Physical Exam
Physical Exam
General: No acute distress, AAOX3
Neck: Negative JVD
Heart: Regular, Negative S3 positive S1/S2, Negative S4, No murmur
Lungs: CTA b/l, negative wheezes/rales/rhonchi
Abd: Positive BS, NT/ND, neg rebound/rigidity/guarding
Ext: Negative cyanosis/clubbing/edema. dressing c/d/i
Neuro: nonfocal
--- NOTE | 2025-03-13 09:08 | W.PN.HOSP.TC ---
Addendum entered and electronically signed by Mary Torres MD 03/13/25 12:58:
Addendum
Discussed with vascular surgeon. No contraindication for MRI. Will order MRI of brain
End
Original Note:
Today's Communication/Plan
-
ok to transfer to tele
ok for oral AC
PT/OT
Assessment / Plan
Assessment / Plan
Physical Exam
General: No acute respiratory distress, aphasic for short time
HEENT: Normocephalic, Atraumatic, EOMI, MMM
Respiratory: Clear to Auscultation bilaterally
Cardiac: Normal S1/S2, Regular Rate and Rhythm
GI: Soft, Nontender, Nondistended, Normal Bowel Sounds
Extremities: No Clubbing, Cyanosis
Left lower extremity incision dressed
Neuro: awake, oriented to self and surroundings. Speech is fluent. Followed commands appropriately.
Psych; calm
# Hypotensive toxic metabolic encephalopathy
His symptoms resembled stroke like as slowing of response and speech problems
Now, he seems back to baseline. I agree to do brain MRI when stable, will check with vascular if any contraindication with recent procedure.
Keep SBP > 100
Appreciate ICU doctor and staff, neurology help
# Mild acute blood loss anemia, I think baseline HGB around 11 and not 17 as on admission ( likely hemoconcentrated)
# hyponatremia, mild
# Paroxysmal atrial fibrillation/new diagnosis this admission
Telemetry showed tachycardia/atrial fibrillation
Discussed with vascular and cardiology. Okay to oral anticoagulation. Started on Eliquis
#Acute on chronic critical left lower limb ischemia
Appreciate vascular surgery input, status post urgent iliac, femoral, popliteal and tibial thrombectomy, stenting of the previous aortobifem bypass, and fasciotomy on 03/10
s/p IV heparin drip, continue aspirin, resumed on statin, wound care
Appreciate vascular / ICU doctors help
#Severe PAD with continued tobacco use
#History of left carotid artery occlusion
Continue aspirin, resumed statin
#Leukocytosis
Likely reactive, patient is afebrile
Monitor off antibiotics
#Coronary artery disease status post multiple stents
No chest pain
Patient did not have insurance, and was not taking his Coreg
Continue aspirin 81 mg daily, resume Coreg but lowered the dose to keep SBP >100. Resumed statin
#Cigarette nicotine dependency
Patient has been counseled to quit smoking
Nicotine patch as needed
#History of essential hypertension
Monitor blood pressure
Holding BP meds until neuro status stabilizes.
#Hyperlipidemia
LDL 109, resumed statin
#Obesity due to excess calories
Affects all aspects of care
DVT prophylaxis�heparin drip
Full code
Total time spent to see the patient on the floor, examine the patient, review data and lab results, discuss treatment plan with patient, consultants, nursing staff around 55 minutes.
Anticipated Discharge: > 48 hours
Subjective/Interval History
-
Date of Service: March 13, 2025
He feels better. Speech is fluent. No headache. Less leg pain.
Objective Data
-
Labs:
Laboratory Results
03/13/25
03:59
WBC 9.3
Hgb 9.3 L
Hct 27.3 L
Plt Count 184
APTT 82.8 H
Sodium 134 L
Potassium 4.0
Chloride 104
Carbon Dioxide 30
BUN 15
Creatinine 0.8
Glucose 94
Calcium 8.3 L
Vital Signs:
Vital Signs
Temp Pulse Resp BP Pulse Ox
98.4 F 72 9 105/54 99
03/13/25 07:58 03/13/25 08:15 03/13/25 08:15 03/13/25 08:00 03/13/25 08:00
I&O
03/12/25 03/13/25 03/14/25
06:59 06:59 06:59
Intake Total 888 / 888 884 / 884
Output Total 1700 / 1700 1225 / 1225 280 / 280
Balance -812 / -812 -341 / -341 -268 / -268
--- NOTE | 2025-03-13 09:10 | W.PN.NEURO.1 ---
Today's Communication / Plan
-
recommend keeping SBP >140, probably lifelong
Agree with anticoagulation as needed
Eventual MRI of brain
Increased atorvastatin from 40 to 80 mg nightly
Neuro Assessment/Plan
Assessment
59-year-old male with a past medical history of CAD status post multiple stents, diastolic CHF, ischemic cardiomyopathy, left internal carotid artery occlusion, hypertension, hyperlipidemia, and PAD/left critical limb ischemia status post
aortobifemoral grafting with revision on 08/11/2019 presented to [facility] on 03/10/2025 with worsening left lower extremity and left foot pain now status post urgent iliac, femoral, popliteal and tibial thrombectomy, stenting of the previous aortobifem
bypass, and fasciotomy on 03/10/2025 on IV heparin drip stroke alerted on 03/12/2025 for aphasia and left upper extremity ataxia.
Head CT 03/12/2025:
1. No CT evidence for acute intracranial hemorrhage or transcortical infarct.
2. Small chronic transcortical infarct in the superolateral right frontal lobe.
3. 6 mm chronic lacunar infarct in the right basal ganglia.
4. 8 mm chronic infarct in the left caudate nucleus.
NECK CTA 03/12/2025:
1. COMPLETE OCCLUSION of both PROXIMAL ICAs.
2. Enlarged bilateral vertebral arteries.
3. 50-70% diameter stenosis at the origin of the left vertebral artery.
4. Moderately enlarged right paratracheal lymph node.
5. Moderate discogenic degenerative disease at C4/C5 with a disc-osteophyte complex causing moderate spinal cord compression and central canal stenosis.
6. Severe right neural foraminal narrowing at C5/C6.
HEAD CTA03/12/2025:
1. Collateral blood supply reaching the terminal communicating segments of both intracranial ICAs.
2. No blood flow in the cavernous segments of the ICAs.
3. 50-70% diameter stenosis in the proximal A1 segment of the right MARIA L.
4. Enlarged vertebral and basilar arteries without stenosis or occlusion.
5. Small chronic transcortical infarct in the superolateral right frontal lobe.
6. 6 mm chronic lacunar infarct in the right basal ganglia.
7. 9 mm chronic infarct in the left caudate nucleus.
Head CT 03/12/2025:No acute intracranial abnormality noted. Small old infarcts. Stable.
Labs: Cholesterol 168, LDL 109
Impressions:
I. abrupt onset of stroke like symptoms in the setting of hypotension given bilateral ICA occlusion; resolved
II. chronic infarct to right basal ganglia, left caudate nucleus and right frontal lobe
III. 50-70% diameter stenosis in the proximal A1 segment of the right MARIA L.
Plan
recommend keeping SBP >140
Agree with anticoagulation as needed
Eventual MRI of brain
Increased atorvastatin from 40 to 80 mg nightly
We will follow as needed.
Subjective/Objective
Subjective Data
Date of Service: March 13, 2025
Patient reports return of normal speech hours after difficulty started.
Objective Data
Vital Signs
Temp Pulse Resp BP Pulse Ox
36.9 C 72 9 105/54 99
03/13/25 07:58 03/13/25 08:15 03/13/25 08:15 03/13/25 08:00 03/13/25 08:00
Lab Results
03/13/25 03:59
03/13/25 03:59
PT 15.5 Sec (11.4-14.6) H 03/10/25 16:28
INR 1.20 03/10/25 16:28
APTT 82.8 Sec (23.4-35.0) H 03/13/25 03:59
Sodium 134 mmol/L (135-145) L 03/13/25 03:59
Potassium 4.0 mmol/L (3.5-5.1) 03/13/25 03:59
BUN 15 mg/dl (9-20) 03/13/25 03:59
Glucose 94 mg/dl (70-99) 03/13/25 03:59
Calcium 8.3 mg/dl (8.4-10.2) L 03/13/25 03:59
LDL Cholesterol, Calc 109 mg/dl 03/11/25 04:18
Patient Allergies
latex Allergy (Verified 03/10/25 03:54)
Breaks Out
Review of Systems
-
History Source: Patient
All other systems: Reviewed and negative
Musculoskeletal: Negative Back Pain or Neck Pain
Neuro: Negative Dizzy, Headache or Weakness
Physical Exam
-
General: No Apparent Distress and Appears Stated Age
Eyes: Round OU, [place] Conjunctivae and No Ptosis
HEENT: Anicteric and Moist Mucous Membranes
Neck: Full Range of Motion
Respiratory: No Dyspnea
Cardiac: No JVD
GI: Non-distended
Skin: Unremarkable
Extremities: No Clubbing, No Cyanosis and No Edema
Psych: Intact Judgement/Insight
Extended Neurological Exam
Mood & Affect: Mood Unremarkable and Affect Unremarkable
Attention Span & Concentration: Awake, Alert and Interactive
Memory: Reduced (Initially for both the month and the year)
Tremor: Hand Tremor Absent and Head Tremor Absent
Speech: Quality Unremarkable and Quantity Unremarkable
Cranial Nerve II: Left Eye: Pupillary Size Unremarkable and Visual Chase Grossly Intact
Cranial Nerve II: Right Eye: Pupillary Size Unremarkable and Visual Chase Grossly Intact
Cranial Nerves III, IV, : Extraocular Movement: Grossly Intact
Cranial Nerve VII: Facial Symmetry: Normal Facial Symmetry
Cranial Nerve VIII: Hearing: Unremarkable Hearing to Normal Conversational Volume
Cranial Nerve XI: Shoulder Shrug: Unremarkable
Muscle Strength, Overall: Full in Upper Extremities
Muscle Bulk & Tone: Bulk Unremarkable and Tone Unremarkable
Touch Sensation: Unremarkable
Data Reviewed
-
Labs: Report Reviewed
Reviewed with: Patient and Family
Old Records: Summarized
Past History
Past History
ED Past Medical History: CAD, Other (Vascular disease) and Other (Coronary disease with stents and MRIs, diastolic dysfunction with EF of 50%, questionable previous stroke, known left internal carotid occlusion, PAD with aortobifemoral grafting,
hyperlipidemia, hypertension)
ED Past Surgical History: Cardiac and Other (Peripheral vascular disease)
Social History
Tobacco: Smoker
Alcohol: None
Drug: None
Personal:
Living: with family
Employment: Employed
Family History
Family History: Other (Noncontributory)
Medications
-
Medications:
Generic Name Dose Route Start Last Admin
Trade Name Freq PRN Reason Stop Dose Admin
Acetaminophen 650 mg 03/10/25 14:31
Acetaminophen 325 Mg Tablet PO 04/07/25 14:30
Q4HPRN PRN
mild pain/MADDEN/temp> 100.4F
Acetaminophen 650 mg 03/12/25 13:00 03/13/25 07:53
Acetaminophen 325 Mg Tablet PO 03/13/25 18:01 650 mg
QID ELAN Administration
Aspirin 81 mg 03/11/25 08:00 03/13/25 07:53
Aspirin 81 Mg Chewable Tablet PO 04/08/25 07:59 81 mg
DAILY ELAN Administration
Atorvastatin Calcium 80 mg 03/12/25 18:00 03/12/25 17:34
Atorvastatin (Lipitor) 80 Mg Tablet PO 04/09/25 17:59 80 mg
QPM ELAN Administration
Carvedilol 3.125 mg 03/12/25 20:00 03/13/25 07:56
Carvedilol 3.125 Mg Tablet PO 04/09/25 19:59 3.125 mg
BID ELAN Administration
Gabapentin 100 mg 03/12/25 16:00 03/13/25 07:53
Gabapentin 100 Mg Capsule PO 04/09/25 15:59 100 mg
TID ELAN Administration
Hydromorphone HCl 0.5 mg 03/10/25 14:31 03/11/25 21:00
Hydromorphone 0.5 Mg/0.5 Ml Syringe IV 03/24/25 14:30 0.5 mg
Q4HPRN PRN Administration
severe pain
Heparin Sodium 25,000 units in 250 mls @ 0 mls/hr 03/10/25 14:31 03/12/25 12:19
Heparin 48078 Units/250 Ml IV 250 mls
PER PROTOCOL ELAN Administration
Protocol
Per Protocol
Nicotine 7 mg 03/10/25 16:00 03/13/25 07:55
Nicotine 7 Mg Patch TRANSDERM 04/07/25 15:59 Not Given
DAILY ELAN
Ondansetron HCl 4 mg 03/10/25 14:31
Ondansetron 4 Mg/2 Ml Vial IV 04/07/25 14:30
Q6HPRN PRN
nausea and vomiting
Oxycodone HCl 5 mg 03/10/25 14:31 03/12/25 19:51
Oxycodone 5 Mg Regular Release Tablet PO 03/24/25 14:30 5 mg
Q4HPRN PRN Administration
moderate pain
Oxycodone HCl 10 mg 03/10/25 14:31 03/12/25 00:13
Oxycodone 10 Mg Regular Release Tablet PO 03/24/25 14:30 10 mg
Q4HPRN PRN Administration
severe pain
Patch Removal 1 patch 03/10/25 22:00 03/12/25 21:42
Remove Nicotine Patch REMOVE 04/07/25 21:59 Not Given
HS ELAN
Polyethylene Glycol 17 grams 03/10/25 14:31
Polyethylene Glycol Powder 17 Grams Packet PO 04/07/25 14:30
DAILYPRN PRN
constipation
Senna/Docusate Sodium 2 tablet 03/13/25 18:00
Docusate W/Senna (Laine-Colace) Tablet PO 04/10/25 17:59
QPM ELAN
Sodium Chloride 0 flush 03/11/25 04:00
Sodium Chloride 0.9% (Flush) Syringe IV 04/08/25 03:59
PER PROTOCOL ELAN
--- NOTE | 2025-03-13 10:00 | PTCARENOTE ---
Pt still did not want to get OOB now that dressings are changed. I insisted he watch his health care videos selected for him since he does not want to get OOB to the chair just yet.
--- NOTE | 2025-03-13 10:09 | W.PN.UPDATE ---
Update Note
Progress Note Update
Placed wound vac on L lateral LE at bedside - LLE wound appears clean without infectious drainage; muscle intact. Wound vac may remain in place for 1 week. Wound dimensions: 12 x 4 x 0.5cm.
Alos replaced PICCO dressing on L groin incision site. Scrotal hematoma unchanged.
[2025-03-13 10:16] LABS: Glycohemoglobin (HgbA1c) 5.7 % (4.0-5.6)
--- NOTE | 2025-03-13 12:03 | WOUNDNOTE ---
RAMONA RN NOTE: Patient admitted with thrombus in L leg. Reviewed chart and vascular note. Per vascular- 59M POD 3 LLE iliofemoral, pop, tibial thrombectomy with aortoiliac stent and 4 compartment fasciotomy for ALI. Peel and Place wound vac dressing
applied by LUCERO roberto, next change in a week for wound care to do. Vac dressing in place no air leaks at 125mmhg. L ankle with intact sutures and dry dressing. Valerie dressing in L groin intact. Patient able to turn self to sides, heels and sacrum
are intact. Will update 3M site with wound vac and plan post discharge is TBD. Will follow.
--- NOTE | 2025-03-13 12:20 | PTCARENOTE ---
Informed him that we are transitioning him off the Heparin drip now and starting him on OAC, Eliquis. I Instructed him not to skip or miss a dose and that he is also to take Baby aspirin every day. He is unsure if he has an RX plan.
[2025-03-13] MEDS: ELIQUIS 5 MG PO ×2 (12:26→19:49)
--- NOTE | 2025-03-13 14:19 | TRANSFER ---
Transferred to room 2107 via their bed. He stood with walker and pivoted himself onto his new bed nonweight beating on his left foot. He was reassured that he is allowed to bear weight. Belonging's from the room went with him. Maintained LLE wound
vac
--- NOTE | 2025-03-13 14:25 | CM ---
Patient with Dx Hypotensive toxic metabolic encephalopathy, New PAF, Acute on chronic critical left lower limb ischemia s/p thrombectomy/stent/fasciotomy. Room air. Seen by wound care nurse - wound VAC, ROBBY dressing.
CM Consult: Patient unsure he can afford Eliquis and if he has prescription plan.
Messages with Dr Torres; per Not sure if he will be on Eliquis after discharge.
Messages with Resident Ember, Vascular PA; requested updated activity orders. Dr Pa he confirms patient will be going home with wound VAC. Requested PT/OT Evals.
Patient will need home health setup fow wound care.
Plan follow up after seen by PT/OT.
--- NOTE | 2025-03-13 15:00 | WOUNDNOTE ---
RAMONA RN NOTE: Confirmed patient will be going home upon discharge and will need a home vac unit. All PW sent to /[facility] for insurance approval. Once approved wound nurse can switch to redi vac unit in office.
[2025-03-13] MEDS: SENOKOT-S 2 TABLET PO (17:43)
[2025-03-13] MEDS: LIPITOR 80 MG PO (17:43)
--- NOTE | 2025-03-13 18:35 | PTCARENOTE ---
Pt transfered from ICU. Oriented to room and call rangel. good neurovascular checks. + pulses with doppler. bed locked and in lowest position.
[2025-03-13] MEDS: REMOVE NICOTINE PATCH REMOVE (22:30)
[2025-03-14] VITALS (7 sets, daily range): BP systolic 105–114; BP diastolic 51–62; PULSE 68; BMI 31.8
[2025-03-14] MEDS: MIRALAX 17 GRAMS PO (05:10)
--- NOTE | 2025-03-14 09:38 | W.PN.HOSP.TC ---
Today's Communication/Plan
-
reconsult PT/OT/speech
Might need acute rehab with a new finding of multiple strokes
Assessment / Plan
Assessment / Plan
Physical Exam
General: No acute respiratory distress, aphasic for short time
HEENT: Normocephalic, Atraumatic, EOMI, MMM
Respiratory: Clear to Auscultation bilaterally
Cardiac: Normal S1/S2, Regular Rate and Rhythm
GI: Soft, Nontender, Nondistended, Normal Bowel Sounds
Extremities: No Clubbing, Cyanosis
Left lower extremity incision dressed
Neuro: awake, oriented to self and surroundings. Speech is fluent. Followed commands appropriately.
Psych; calm
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
hypotensive toxic metabolic encephalopathy
His neurological symptoms
Worsened with hypotension. Keeping systolic blood pressure more than 100
Anticoagulated with Eliquis and aspirin
Reconsult PT/OT/speech
Appreciate ICU doctor and staff, neurology help
# Mild acute blood loss anemia, I think baseline HGB around 11 and not 17 as on admission ( likely hemoconcentrated)
# hyponatremia, mild
# Paroxysmal atrial fibrillation/new diagnosis this admission
Telemetry showed tachycardia/atrial fibrillation
Discussed with vascular and cardiology. Okay to oral anticoagulation. Started on Eliquis
#Acute on chronic critical left lower limb ischemia
Appreciate vascular surgery input, status post urgent iliac, femoral, popliteal and tibial thrombectomy, stenting of the previous aortobifem bypass, and fasciotomy on 03/10
s/p IV heparin drip, continue aspirin, resumed on statin, wound care
Appreciate vascular / ICU doctors help
#Severe PAD with continued tobacco use
#History of left carotid artery occlusion
Continue aspirin, resumed statin
#Leukocytosis
Likely reactive, patient is afebrile
Monitor off antibiotics
#Coronary artery disease status post multiple stents
No chest pain
Patient did not have insurance, and was not taking his Coreg
Continue aspirin 81 mg daily, resume Coreg but lowered the dose to keep SBP >100. Resumed statin
#Cigarette nicotine dependency
Patient has been counseled to quit smoking
Nicotine patch as needed
#History of essential hypertension
Monitor blood pressure
Holding BP meds until neuro status stabilizes.
#Hyperlipidemia
LDL 109, resumed statin
#Obesity due to excess calories
Affects all aspects of care
DVT prophylaxis�heparin drip
Full code
Total time spent to see the patient on the floor, examine the patient, review data and lab results, discuss treatment plan with patient, consultants, nursing staff around 55 minutes.
Anticipated Discharge: 24 - 48 hours
Subjective/Interval History
-
Date of Service: March 14, 2025
No complaints
No chest pain
No sob
No fevers
No abdominal pain
Objective Data
-
Vital Signs:
Vital Signs
Temp Pulse Resp BP Pulse Ox
98 F 70 16 114/56 98
03/14/25 07:10 03/14/25 07:10 03/14/25 07:10 03/14/25 07:10 03/14/25 07:10
I&O
03/13/25 03/14/25 03/15/25
06:59 06:59 06:59
Intake Total 884 / 884 756 / 756 480 / 480
Output Total 1225 / 1225 530 / 530
Balance -341 / -341 226 / 226 480 / 480
[2025-03-14] MEDS: NEURONTIN 100 MG PO ×3 (09:58→22:00)
[2025-03-14] MEDS: ELIQUIS 5 MG PO ×2 (09:59→19:52)
[2025-03-14] MEDS: COREG 3.125 MG PO (09:59)
[2025-03-14] MEDS: LOW STRENGTH ASPIRIN 81 MG PO (09:59)
--- NOTE | 2025-03-14 11:27 | W.PN.CARDCBS ---
Addendum entered and electronically signed by Berry Ott DO 03/14/25 15:25:
I saw and examined the patient.
The Industrial Laborer's note was reviewed and I agree with the note.
Comment:
Patient resting comfortably in bed without complaint. Denies chest pain, shortness of breath, palpitations, or focal weakness. Notes mild word finding difficulty.
GENERAL: no acute distress
EYE: sclera anicteric
NECK: Supple, no JVD, no carotid bruit appreciated
ENT: normal nose, moist mucosal membranes
CARDIAC: Regular rate and rhythm, +S1/S2, no murmur, rubs, or gallops
CHEST/PULMONARY: Normal effort, clear breath sounds, no wheeze
ABDOMEN: Soft, without focal tenderness or distention
NEUROLOGICAL: Alert and oriented x3
SKIN: Warm, wound vac in place
PSYCH: Normal and appropriate interaction.
Telemetry: Sinus rhythm, rare PVC; no AF/PAT last 24 hours
A/P as below
Continue beta-magdy therapy with hold parameters for hypotension
Tolerating anticoagulation with Eliquis; in the setting of new diagnosis of atrial fibrillation, his stroke risk is [id number]: 5 (hypertension, stroke, vascular disease, heart failure). Case management pending cost
Monitor on telemetry while admitted
Patient has cardiology follow-up arranged
Will sign off. Please call with questions.
Addendum entered and electronically signed by Amberly Collazo PA-C 03/14/25 14:38:
.
Original Note:
Today's Communication / Plan
-
CVA on MRI, patient should continue Eliquis upon d/c
Consult to CM for cost of Eliquis
Cardiololy f/u being arranged
Impression / Plan
-
PCP: none
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
Impression:
Presented 03/10 2025 with left lower extremity critical limb ischemia
PAD/critical limb ischemia
s/p left iliofemoral, pop, tibial thrombectomy with aortoiliac stent, fasciotomy on 03/10/2025
s/p aortobifemoral grafting with revision on 08/11/2019
vascular surgery in [place] in 2018
Acute CVA with left sided ataxia, aphasia/dysarthria 03/12/2025
Evidence of B/L acute infarcts frontal lobe left greater than right by MRI brain 03/14/2025
Bilateral carotid occlusion with collaterals, on imaging
PAT/PAFib
CAD
status post multiple cardiac stents in [place]
Heart failure with reduced ejection fraction
Ischemic cardiomyopathy EF 40%, improved to 55-60% by echo 03/12/25
Hypertension
Hyperlipidemia
Tobacco abuse
Echo 09/08/19 - LV: EF 40%, global hypokinesis, intermediate diastolic function. RV: nl. LA: nl. RA: nl. MV: mild MR, mild MAC. AV: mild sclerosis. TV: trace TR. PV: nl. Aorta: nl.
Echo 03/12/2025: EF 55-60% with dilated RV, mild eccentric MR, mild TR
Plan:
-Patient admitted 03/10/25 with LLE critical limb ischemia. Now s/p left iliofemoral, pop, tibial thrombectomy with aortoiliac stent, fasciotomy on 03/10/2025. Then with Atach/fib on tele and CVA symptoms 03/12/25 prompting cardiology consultation.
-MRI brain 03/14/25 showed small acute infarcts in the B/L frontal lobes left greater than right suggesting embolic phenomenon. Patient with newly diagnosed paroxysmal A-fib this admission.
-New to Eliquis 5 mg BID (age 59, Cre 0.8). was not able to check on cost of Eliquis as there was a thought that patient might not need long-term Eliquis. At this point patient will in fact need long-term Eliquis and we will need to know what
that cost will be, new consult to CM placed by ca 03/14/2025.
-Telemetry reviewed by ca 03/14/2025 and patient remains in SR, but had paroxysms of A. tach/fib earlier this admission
-New to Coreg 3.125 mg BID this admission
-Neurology note reviewed and they are also recommending that patient avoid hypotension given B/L carotid occlusions with evidence of collateral flow
-Patient with known CAD, but no CP this admission. No acute ischemic change on ECG. EF preserved by echo.
-LDL 109 and new to atorvastatin 80 mg daily this admission
-Patient is working on smoking cessation efforts and has been accepting of nicotine patch this admission
-Patient reports he needs referral for new PCP
- Will arrange for cardiology follow-up
[facility] :
59-year-old male with a past medical history of CAD status post multiple stents, HFpEF, ischemic cardiomyopathy, bilateral carotid artery occlusion, hypertension, hyperlipidemia, and PAD/left critical limb ischemia status post aortobifemoral
grafting with revision on 08/11/2019 presented to [facility] on 03/10/2025 with worsening left lower extremity and left foot pain now status post urgent iliac, femoral, popliteal and tibial thrombectomy, stenting of the previous aortobifem bypass, and
fasciotomy on 03/10/2025 on IV heparin drip following surgery. Patient was known to have speech difficulty, aphasia and left upper extremity ataxia on 03/12/2025. Stroke alert was activated. Head CT showed no acute acute intracranial hemorrhage or
infarct. There were chronic lacunar infarcts of right basal ganglia and left caudate nucleus. CTA of head and neck showed complete occlusion of bilateral proximal ICAs with collateral blood flow supply reaching terminal communicating segments of
both intracranial ICAs. 50 to 70% stenosis of origin of left vertebral artery and 50-70% diameter stenosis in the proximal A1 segment of the right MARIA L. Interestingly patient was noted to be hypotensive during his altered mental status. Patient
had a second episode of similar presentation several hours later and was once again found to be hypotensive. Cardiology being asked to see patient for concerns of atrial arrhythmias. Upon review of telemetry it looks like patient had PAT around
4:20 am lasting approximately 15 minutes. He then had additional episodes of tachycardia later this morning with heart rates in the 150s to 160s which appears to be atrial fibrillation. Patient also having sinus rhythm with PACs and frequent
atrial bigeminy.
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 He is generally active around the sites and activity is mostly limited by claudication symptoms. He denies exertional chest pain, shortness of breath. He denies having
palpitations, dizziness or lightheadedness prior to admission. He reports he has not seen a doctor in some time and takes only an aspirin as an outpatient.
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
Subjective
Date of Service: March 14, 2025
He feels well, no palpitations
Objective
Labs:
03/13/25 03:59
03/13/25 03:59
Labs
Hgb 9.3 g/dL (13.0-18.0) L 03/13/25 03:59
Hct 27.3 % (39.0-52.0) L 03/13/25 03:59
Plt Count 184 10^3/uL (130-400) 03/13/25 03:59
PT 15.5 Sec (11.4-14.6) H 03/10/25 16:28
INR 1.20 03/10/25 16:28
APTT 82.8 Sec (23.4-35.0) H 03/13/25 03:59
Sodium 134 mmol/L (135-145) L 03/13/25 03:59
Potassium 4.0 mmol/L (3.5-5.1) 03/13/25 03:59
BUN 15 mg/dl (9-20) 03/13/25 03:59
Creatinine 0.8 mg/dL (0.7-1.3) 03/13/25 03:59
Glucose 94 mg/dl (70-99) 03/13/25 03:59
Vital Signs and I&O:
Vital Signs
Temp Pulse Resp BP Pulse Ox
98 F 68 16 118/50 98
03/14/25 07:10 03/14/25 09:59 03/14/25 07:10 03/14/25 09:59 03/14/25 07:10
Vital Signs
Temp Pulse Resp BP Pulse Ox
98 F 68 16 118/50 98
03/14/25 07:10 03/14/25 09:59 03/14/25 07:10 03/14/25 09:59 03/14/25 07:10
Intake & Output
03/12/25 03/13/25 03/14/25 03/15/25
06:59 06:59 06:59 06:59
Intake Total 888 / 888 884 / 884 756 / 756 480 / 480
Output Total 1700 / 1700 1225 / 1225 530 / 530
Balance -812 / -812 -341 / -341 226 / 226 480 / 480
Physical Exam
Physical Exam
GEN: NAD. AAOx3
HEENT: EOMI
LUNGS: RA. No audible wheeze
CV: SR on tele
--- NOTE | 2025-03-14 14:12 | PTOTSP ---
DURABILITY ENGINEER Evaluations
Oral/pharyngeal swallowing is within functional limits.
Patient presents with signs concerning for at least mild mixed aphasia and moderate cognitive linguistic impairments (MOCA 8.1 [place] = ) with changes to visuospatial/executive function, attention, language, abstraction, and delayed recall.
Recommend:
1. Continued DURABILITY ENGINEER f/u at the acute care level for language/cognitive linguistic tx.
2. Continued cognitive linguistic and language evaluation at the next level of care. Patient is rehab appropriate.
3. Supervision with higher level cognitive tasks.
--- NOTE | 2025-03-14 14:25 | WOUNDNOTE ---
LEFT LATERAL LOWER LEG
--- NOTE | 2025-03-14 14:31 | WOUNDNOTE ---
[facility] RN NOTE: Met with patient to replace left calf wound vac. Wound measures 13x3.6x.1, muscle exposed with moderate, sanguinous drainage. No purulence or odor noted. Large peel and place wound vac applied.Patient also reports good appetite. Patient
tolerated well. Patient is on a Centrella Pro mattress and ambulates to and from bed to chair. Heels and sacrum intact. TT Edwige Kerr with update. Awaiting approval of home wound vac.
--- NOTE | 2025-03-14 14:57 | WOUNDNOTE ---
WOC RN note: Faxed clinical wound note to Yessy Everett from [facility] per her request for processing home vac order approval. Awaiting ready chcf vac approval.
[2025-03-14] MEDS: SENOKOT-S 2 TABLET PO (17:36)
[2025-03-14] MEDS: LIPITOR 80 MG PO (17:36)
[2025-03-14] MEDS: COREG PO (19:52)
[2025-03-14] MEDS: REMOVE NICOTINE PATCH REMOVE (22:00)
[2025-03-15] VITALS (7 sets, daily range): BP systolic 100–124; BP diastolic 45–69; PULSE 74; BMI 31.1
[2025-03-15] MEDS: ROXICODONE 10 MG PO (01:53)
--- NOTE | 2025-03-15 08:28 | W.PN.HOSP.TC ---
Today's Communication/Plan
-
Consult Dr Alanis
Patient feels left sided weakness > right
Sometimes cognitive issues
Assessment / Plan
Assessment / Plan
Physical Exam
General: No acute respiratory distress, aphasic for short time
HEENT: Normocephalic, Atraumatic, EOMI, MMM
Respiratory: Clear to Auscultation bilaterally
Cardiac: Normal S1/S2, Regular Rate and Rhythm
GI: Soft, Nontender, Nondistended, Normal Bowel Sounds
Extremities: No Clubbing, Cyanosis
Left lower extremity incision dressed
Neuro: awake, oriented to self and surroundings. Speech is fluent. Followed commands appropriately.
Psych; calm
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
hypotensive toxic metabolic encephalopathy
His neurological symptoms
Worsened with hypotension. Keeping systolic blood pressure more than 100
Anticoagulated with Eliquis and aspirin
Reconsult PT/OT/speech
Appreciate ICU doctor and staff, neurology help
# Mild acute blood loss anemia, I think baseline HGB around 11 and not 17 as on admission ( likely hemoconcentrated)
# hyponatremia, mild
# Paroxysmal atrial fibrillation/new diagnosis this admission
Telemetry showed tachycardia/atrial fibrillation
Discussed with vascular and cardiology. Okay to oral anticoagulation. Started on Eliquis
#Acute on chronic critical left lower limb ischemia
Appreciate vascular surgery input, status post urgent iliac, femoral, popliteal and tibial thrombectomy, stenting of the previous aortobifem bypass, and fasciotomy on 03/10
s/p IV heparin drip, continue aspirin, resumed on statin, wound care
Appreciate vascular / ICU doctors help
#Severe PAD with continued tobacco use
#History of left carotid artery occlusion
Continue aspirin, resumed statin
#Leukocytosis
Likely reactive, patient is afebrile
Monitor off antibiotics
#Coronary artery disease status post multiple stents
No chest pain
Patient did not have insurance, and was not taking his Coreg
Continue aspirin 81 mg daily, resume Coreg but lowered the dose to keep SBP >100. Resumed statin
#Cigarette nicotine dependency
Patient has been counseled to quit smoking
Nicotine patch as needed
#History of essential hypertension
Monitor blood pressure
Holding BP meds until neuro status stabilizes.
#Hyperlipidemia
LDL 109, resumed statin
#Obesity due to excess calories
Affects all aspects of care
DVT prophylaxis�heparin drip
Full code
Total time spent to see the patient on the floor, examine the patient, review data and lab results, discuss treatment plan with patient, consultants, nursing staff around 55 minutes.
Anticipated Discharge: 24 - 48 hours
Subjective/Interval History
-
Date of Service: March 15, 2025
No complaints
Feels still with left sided weakness
Objective Data
-
Vital Signs:
Vital Signs
Temp Pulse Resp BP Pulse Ox
98.5 F 60 16 107/52 95
03/15/25 03:00 03/15/25 03:00 03/15/25 03:00 03/15/25 03:00 03/15/25 03:00
I&O
03/14/25 03/15/25 03/16/25
06:59 06:59 06:59
Intake Total 756 / 756 480 / 480
Output Total 530 / 530 500 / 500
Balance 226 / 226 -20 / -20
[2025-03-15] MEDS: COREG PO (09:21)
[2025-03-15] MEDS: NEURONTIN 100 MG PO ×3 (09:22→21:40)
[2025-03-15] MEDS: ELIQUIS 5 MG PO ×2 (09:22→20:31)
[2025-03-15] MEDS: LOW STRENGTH ASPIRIN 81 MG PO (09:22)
[2025-03-15 10:06] LABS: Hematocrit 28.5 % (39.0-52.0); Hemoglobin 9.8 g/dL (13.0-18.0); Mean Corp Hgb Conc. 34.4 g/dL (33.0-37.0); Mean Corpuscular Volume 89.9 fL (80.0-94.0); Platelet Count 287 10^3/uL (130-400); Red Cell Dist. Width 13.1 % (11.5-14.5)
[2025-03-15 10:51] LABS: Blood Urea Nitrogen 14 mg/dl (9-20); Calcium 8.7 mg/dl (8.4-10.2); Carbon Dioxide 26 mmol/L (22-30); Chloride 104 mmol/L (98-107); Estimated Creatinine Clearance 98 ml/min; Glucose 122 mg/dl (70-99); Potassium 4.3 mmol/L (3.5-5.1); Sodium 135 mmol/L (135-145); eGFR > 60.00
--- NOTE | 2025-03-15 12:43 | CM ---
Addendum entered by Geraldo Calderon 03/15/25 13:15:
Therapy rec for Acute Rehab. Referral forwarded to [facility].
Original Note:
Follow-up insurance for medications: On insurance card: [id number], Rx[employer]N-CBC, [employer]p-Rx[employer]. Insurance # . [place] for Eliquis is: $45.00/month OR $90.00/for 3 months. PA notified.
--- NOTE | 2025-03-15 12:58 | WOUNDNOTE ---
WOC RN Note: Patient's [employer] home vac was approved as per [employer] therapy portal.
--- NOTE | 2025-03-15 15:45 | CON.MD ---
Documented by User: Darlene Rosenbaum PA-C 03/15/25 16:51
Consultation - Medical
-
Referring Provider:�Dr. Torres
Chief Complaint:�CVA, acute on chronic left lower extremity ischemia s/p vascular surgery
�
History of Present Illness:�Patient is a 59-year-old male with PMH of (CAD s/p multiple stents, diastolic CHF, ischemic cardiomyopathy, left internal carotid artery occlusion, hypertension, hyperlipidemia, PAD associated with left critical limb
ischemia status post aortobifemoral grafting with revision on 08/11/[address] [facility] ED on 03/10/2025 with worsening left lower extremity and left foot pain. Pain has been present over the past few months, especially when walking.
Patient is status post urgent iliac, femoral, popliteal and tibial thrombectomy, stenting of the previous aortobifemoral bypass and fasciotomy on 03/10 was on IV heparin drip, when stroke was alerted on 03/12 for aphasia and left upper extremity
ataxia.
CT of head-03/12/25- 6mm chronic lacunar infarct in the right basal ganglia and 8 mm chronic infarct in the left caudate nucleus.
NECK CTA 03/12/2025: Complete occlusion of both proximal internal carotid arteries. Enlarged bilateral vertebral arteries.
HEAD CTA -03/12/2025:Collateral blood supply reaching the terminal communicating segments of both intracranial ICAs. 50-70% diameter stenosis in the proximal A1 segment of the right MARIA L.
Patient reported return of normal speech hours after difficulty started. Neurology on 03/13- recommended keeping systolic blood pressure >140 for worsening neurological symptoms due to hypotension. Agreeable with anticoagulation as needed and
eventually needing MRI of the brain, increasing atorvastatin to 80 mg at bedtime in the setting of abrupt onset of stroke like symptoms in setting of hypotension, bilateral ICA occlusion, chronic infarcts.
03/13 Wound VAC was placed on the left lateral lower extremity at bedside. Per surgical team to remain in place for 1 week. PICCO dressing placed on left groin incision site. Scrotal hematoma unchanged.
03/14- seen by cardiology-Noted mild word finding difficulty. Sinus rhythm, rare PVC; no AF/PAT last 24 hours. Recommending continuing beta-magdy therapy with hold parameters for hypotension. Started on anticoagulant.
03/14-Brain MRI-Multiple bilateral foci of restricted diffusion are demonstrated, associated with diminished signal intensity on ADC, considered infarcts involving bilateral frontal lobes, left greater than right. Largest focus in the anterolateral
superior left frontal lobe measuring 1.1 cm. Associated minor edema. There is no mass effect.
Past Medical History:�CAD s/p multiple stents, diastolic CHF, ischemic cardiomyopathy, left internal carotid artery occlusion, hypertension, hyperlipidemia, PAD, left critical limb ischemia S/P aortobifemoral grafting with revision on 08/11/2019,
limited range of motion of left upper extremity since childhood due to trauma
Procedure History:�Left aortobifemoral grafting with revision on 08/11/2019, multiple cardiac stenting, left femoral and popliteal thrombectomy, angioplasty, stent-03/10/2025
Family History:�Fraternal grandmother�cerebral CVAs, Brother�CHF, [place]
�
Social History:�
Functional Level Premorbidly:�Independent with all activities�
Functional Level Currently:�Transfer�supervision, eating�independent, grooming�set up, toileting�min assist, upper extremity self-care�supervision, lower extremity self-care�max assist, bed mobility�supervision, ambulated 40 feet with rolling walker
close supervision
�
Tobacco:�Smoker
Alcohol:�Denies�
Drug use:�Denies�
�
Lives with:�Family in basement, 11 steps down
24-hour assistance available:�
Number of floors:�One-story with basement
# steps to enter:�1,
# steps to second floor: none
Potential First floor set up:�no
Driving:�yes
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
�
�
Allergies:�
Allergy/AdvReac Type Severity Reaction Status Date / Time
latex Allergy Breaks Out Verified 03/10/25 03:54
�
Review of Systems:�
Constitutional: (x) Normal _
Eye: (x) Normal _
Ear/Nose/Throat: (x) Normal _
Respiratory: (x) Normal _
Cardiovascular: (x) abNormal _A-fib- new, PAD, s/p iliac, femoral and tibial thrombectomy, stenting of aortobifemoral bypass and fasciotomy
Gastrointestinal: (x) Normal _
Genitourinary: (x) Normal _
Musculoskeletal: (x) Normal _
Integumentary: (x) Normal _
Neurologic: (x) abNormal _ CVA, mild aphasia
Psychiatric: (x) Normal _
Endocrine: (x) Normal _
Hematologic/Lymphatic: (x) Normal _
Allergic/Immunologic: (x) Normal _
�
Medications:�
Active Current Visit Medication List
Category Date Time Status
Acetaminophen [Tylenol] Med 03/10/25 14:31 Active
650 mg PO Q4HPRN PRN
Apixaban [Eliquis] Med 03/13/25 11:15 Active
5 mg PO BID
Aspirin Chewable [Low Strength Aspirin] Med 03/11/25 08:00 Active
81 mg PO DAILY
Atorvastatin [Lipitor] Med 03/12/25 18:00 Active
80 mg PO QPM
Carvedilol [Coreg] Med 03/12/25 20:00 Active
3.125 mg PO BID
Docusate W/Senna [Senokot-S] Med 03/13/25 18:00 Active
2 tablet PO QPM
Flush (0.9% Sodium Chloride) [Flush (Nss)] Med 03/11/25 04:00 Active
See Dose Instructions IV PER PROTOCOL
Gabapentin [Neurontin] Med 03/12/25 16:00 Active
100 mg PO TID
HYDROmorphone [Dilaudid] Med 03/10/25 14:31 Active
0.5 mg IV Q4HPRN PRN
Nicotine [Nicoderm Transdermal] Med 03/10/25 16:00 Active
7 mg TRANSDERM DAILY
Ondansetron Injectable [Zofran] Med 03/10/25 14:31 Active
4 mg IV Q6HPRN PRN
Oxycodone [Roxicodone] Med 03/10/25 14:31 Active
10 mg PO Q4HPRN PRN
Oxycodone [Roxicodone] Med 03/10/25 14:31 Active
5 mg PO Q4HPRN PRN
Polyethylene Glycol Powder [Miralax] Med 03/10/25 14:31 Active
17 grams PO DAILYPRN PRN
Remove Patch [Remove Nicotine Patch] Med 03/10/25 22:00 Active
1 patch REMOVE HS
�
Vitals:�
Temp Pulse Resp BP Pulse Ox
98.4 F 60 16 101/49 97
03/15/25 11:20 03/15/25 11:20 03/15/25 11:20 03/15/25 11:20 03/15/25 11:20
Height 5 ft 5 in
Actual Weight 84.8 kg
Body Mass Index (BMI) 31.1
�
Physical Exam:�
General Appearance/Observation: Well-developed, well-nourished individual in no apparent distress.�
Pain/Comfort Assessment: Denies�
Mood/Affect: Appropriate�
�
Integumentary/Operative Site:�Wound VAC left lateral left leg, eft medial leg-incision open to air with nayan�, wound with dressing�left medial ankle, left groin with dressing, tattoo-left chest, forearm
�� Pressure Ulcer Evaluation: absent over heels.�
��
�� Other Type of Wound: absent�
�
Eyes: Conjunctiva/Lids: normal���� Pupils: pupils equal round and reactive to light and Accommodation�
Ears/Nose/Throat: oral mucosa moist,� throat clear.������������ Lips/Teeth/Gums: normal�
Neck: No muscle spasm or tenderness�
Cardiovascular: Heart: regular, no murmur�
Pulses: dorsalis pedis 2+ bilaterally�
Respiratory: Respiratory Effort/Chest Expansion: normal������� Auscultation: Clear to auscultation bilaterally�
Gastrointestinal: abdomen not tender, no distension, normal abdominal bowel sounds
Genitourinary: No Kamara�
Extremities:�Edema: 1+ edema-LLE, wound vac left lateral leg�Cyanosis: None�Trophic�changes: None
�
Neurology Exam:
Orientation: Alert, Oriented to self, Time, Place�
Memory: Intact for immediate medical concerns
Repetition: Intact
Comprehension: Intact
Two step command: Intact
Naming: Intact
Cranial Nerves:
�� CNII:�Pupillary light reflex: Intact����Visual Field: Intact
�� CN III, IV, : Extraocular muscles: Intact�
�� CN V:�Facial Sensation�at�Forehead: Intact,�Maxilla: Intact,�Mandible: Intact
�� CN VII:�Facial movement: Symmetric
�� CN VIII:�Hearing: Normal
�� CN IX/X:�Speech & swallow: Normal,�Position of Uvula: Midline
�� CN XI:�Shoulder shrug: Symmetric
�� CN XII:�Tongue protrusion: Midline
Sensory:
�� Light touch: Intact in bilateral upper and lower extremities
��
�
Reflexes:
�� Biceps: 2+ bilaterally
�� Brachioradialis: 2+ bilaterally
�� Triceps: 2+ bilaterally
�� Patellar: 2+ bilaterally
�� Achilles: absent bilaterally
�� Babinski: Down going bilaterally
�� Clonus: NT
�� Mane: Negative bilaterally�
Cerebellar: Dysmetria/Ataxia: None�
Musculoskeletal:
Motor: (Manual muscle scale 0-5)�
Muscle SA EF WE EE FF FA HF KE DF EHL PF
Right� 5 5 5 5 5 5 5 5 5 5 5
Left 5 5 5 5 5 5 4 4 5 5 5
�
Tone: Normal in all extremities�
Range of Motion: Passively within normal limits in all extremities,deferred LLE�
�
Lab Results:
Labs
WBC 9.4 10^3/uL (4.8-10.8) 03/15/25 08:58
RBC 3.17 10^6/uL (4.70-6.10) L 03/15/25 08:58
Hgb 9.8 g/dL (13.0-18.0) L 03/15/25 08:58
Hct 28.5 % (39.0-52.0) L 03/15/25 08:58
MCV 89.9 fL (80.0-94.0) 03/15/25 08:58
MCH 30.9 pg (27.0-31.0) 03/15/25 08:58
MCHC 34.4 g/dL (33.0-37.0) 03/15/25 08:58
RDW 13.1 % (11.5-14.5) 03/15/25 08:58
Plt Count 287 10^3/uL (130-400) D 03/15/25 08:58
MPV 9.2 fL (7.4-10.4) 03/15/25 08:58
Abs Immat Gran (auto) 0.0 10^3/uL (0-0.05) 03/10/25 04:38
Absolute Neuts (auto) 4.2 10^3/uL (1.4-6.5) 03/10/25 04:38
Absolute Lymphs (auto) 2.6 10^3/uL (1.2-3.4) 03/10/25 04:38
Absolute Monos (auto) 0.8 10^3/uL (0.1-0.6) H 03/10/25 04:38
Absolute Eos (auto) 0.2 10^3/uL (0-0.7) 03/10/25 04:38
Absolute Basos (auto) 0.1 10^3/uL (0-0.2) 03/10/25 04:38
Immature Gran % 0.4 % (0-0.5) 03/10/25 04:38
Neutrophils % 52.8 % (42.2-75.2) 03/10/25 04:38
Lymphocytes % 33.0 % (20.5-51.1) 03/10/25 04:38
Monocytes % 9.6 % (1.7-9.3) H 03/10/25 04:38
Eosinophils % 2.8 % (0-6) 03/10/25 04:38
Basophils % 1.4 % (0-2) 03/10/25 04:38
Nucleated RBC % 0 % (-) 03/10/25 04:38
PT 15.5 Sec (11.4-14.6) H 03/10/25 16:28
INR 1.20 03/10/25 16:28
APTT 82.8 Sec (23.4-35.0) H 03/13/25 03:59
Sodium 135 mmol/L (135-145) 03/15/25 08:58
Potassium 4.3 mmol/L (3.5-5.1) 03/15/25 08:58
Chloride 104 mmol/L (98-107) 03/15/25 08:58
Carbon Dioxide 26 mmol/L (22-30) 03/15/25 08:58
BUN 14 mg/dl (9-20) 03/15/25 08:58
Creatinine 0.8 mg/dL (0.7-1.3) 03/15/25 08:58
Estimated Creat Clear 98 ml/min 03/15/25 08:58
eGFR > 60.00 03/15/25 08:58
Glucose 122 mg/dl (70-99) H 03/15/25 08:58
Hemoglobin A1c 5.7 % (4.0-5.6) H 03/12/25 04:17
Calcium 8.7 mg/dl (8.4-10.2) 03/15/25 08:58
Magnesium 2.0 mg/dl (1.6-2.3) 03/11/25 04:18
Total Bilirubin 0.6 mg/dl (0.2-1.3) 03/10/25 04:38
AST 29 U/L (17-59) 03/10/25 04:38
ALT 26 U/L (0-50) 03/10/25 04:38
Alkaline Phosphatase 95 U/L (38-126) 03/10/25 04:38
Total Protein 7.0 g/dl (6.3-8.2) 03/10/25 04:38
Albumin 4.3 g/dl (3.5-5.0) 03/10/25 04:38
Triglycerides 120 mg/dl (10-149) 03/11/25 04:18
Total Cholesterol 168 mg/dl (50-199) 03/11/25 04:18
LDL Cholesterol, Calc 109 mg/dl 03/11/25 04:18
VLDL Cholesterol, Calc 24 mg/dl (0-30) 03/11/25 04:18
HDL Cholesterol 35 mg/dl 03/11/25 04:18
TSH (Reflex) 1.86 uIU/ml (0.47-4.68) 03/12/25 04:17
Hepatitis C Antibody Negative (Negative) 03/10/25 16:28
Blood Type O POS 03/10/25 04:38
Antibody Screen Negative (Negative) 03/10/25 04:38
�
Diagnostic Results:�as per HPI�
�
Head CT 03/12/2025:
1. No CT evidence for acute intracranial hemorrhage or transcortical infarct.
2. Small chronic transcortical infarct in the superolateral right frontal lobe.
3. 6 mm chronic lacunar infarct in the right basal ganglia.
4. 8 mm chronic infarct in the left caudate nucleus.
NECK CTA 03/12/2025:
1. COMPLETE OCCLUSION of both PROXIMAL ICAs.
2. Enlarged bilateral vertebral arteries.
3. 50-70% diameter stenosis at the origin of the left vertebral artery.
4. Moderately enlarged right paratracheal lymph node.
5. Moderate discogenic degenerative disease at C4/C5 with a disc-osteophyte complex causing moderate spinal cord compression and central canal stenosis.
6. Severe right neural foraminal narrowing at C5/C6.
HEAD CTA03/12/2025:
1. Collateral blood supply reaching the terminal communicating segments of both intracranial ICAs.
2. No blood flow in the cavernous segments of the ICAs.
3. 50-70% diameter stenosis in the proximal A1 segment of the right MARIA L.
4. Enlarged vertebral and basilar arteries without stenosis or occlusion.
5. Small chronic transcortical infarct in the superolateral right frontal lobe.
6. 6 mm chronic lacunar infarct in the right basal ganglia.
7. 9 mm chronic infarct in the left caudate nucleus.
Head CT 03/12/2025:No acute intracranial abnormality noted. Small old infarcts. Stable.
Assessment: 59-year-old male with PMH of (CAD s/p multiple stents, diastolic CHF, ischemic cardiomyopathy, left internal carotid artery occlusion, hypertension, hyperlipidemia, PAD with left critical limb ischemia s/p aortobifemoral grafting with
revision on 08/11/2019 presented to the ED on 03/10/2025 with worsening left lower extremity and left foot pain. on 03/10 underwent urgent iliac, femoral, popliteal and tibial thrombectomy, stenting of the previous aortobifemoral bypass and
fasciotomy. Stroke alert on 03/12 for aphasia and left upper extremity ataxia with imaging revealing complete occlusion of bilateral ICAs, and brain MRI with bilateral frontal lobes, left greater than right with the largest focus in the
anterolateral superior left frontal lobe associated with minor edema. No mass effect...
�
Plan�
PM&R�PT/OT to increase independence with ADLs, improve balance, coordination, endurance, strength, mobility, community reintegration, decreased burden of care on others and family education.�
�
CVA: Secondary prophylaxis with aspirin 81mg qd and Eliquis, statin, and blood pressure control (SBP less than 180 and diastolic less than 100 to participate with therapy for ischemic stroke). Continue to monitor neurologic status.
Acute on chronic critical left lower limb ischemia: status post urgent iliac, femoral, popliteal and tibial thrombectomy, stenting of the previous aortobifemoral bypass, and fasciotomy on 03/10�
Aphasia:fluent. seems to have resolve. Speech evaluation for further assessment
Cognitive linguistic impairments: Speech recommending continuation of therapy at acute level. Supervision with higher level cognitive task
HTN: continue medications, monitor closely�
HLD: Atorvastatin increased from 40 to 80 mg bedtime
Acute on chronic critical left lower limb ischemia: status post urgent iliac, femoral, popliteal and tibial thrombectomy, stenting of the previous aortobifem bypass, and fasciotomy on 03/10
Coronary artery disease/PAD�:s/p multiple stents. Did not have insurance and was not taking his Coreg. Coreg resumed at lower dose, statin, aspirin 81 mg aspirin, statin, beta-magdy�
Paroxysmal atrial fibrillation/ new dx this admission. Eliquis 5mg bid and carvedilol 3.125 twice daily�������������������������������������
CHF/ischemic cardiomyopathy: EF 40%, improved to 55-60% by echo 03/12/25
Anemia: post op- 9.8.� Continue to monitor.��
Hyponatremia: 135 as of 03/15
Leukocytosis: normalized-9.4 as of 03/15
Cervical spine: moderate discogenic degenerative disease at C4/C5 with a disc-osteophyte complex causing moderate spinal cord compression and central canal stenosis.
Psych: Psychology consult.� Monitor mood, adjust medications as needed.�
Skin: monitor for pressure sores/rashes/lesions.�
Pain: acetaminophen ,oxycodone as needed, gabapentin 100 mg 3 times daily. Dilaudid 0.5 mg IV Q4 as needed, Zofran 4 mg IV every 6 as needed
Bowel: Colace and Senna, PRN bisacodyl.� MiraLAX 17 g daily as needed
Bladder: Time void, PVRs, PRN straight cath.�
Tobacco Abuse: Smoking cessation counseling. Nicotine patch.
GI Prophylaxis: recommend Pantoprazole while on Eliquis�
DVT Prophylaxis: Mechanical and Eliquis 5 mg twice a day
Pulmonary: Incentive spirometry�
Obesity: Continue to counseling department chair patient about diet adjustments to control obesity. Body habitus and increased force to move body and extremities causes further difficulty with functional tasks.�
Safety: Continue to reinforce assistance with all transfers.�
Code Status:� Full code
Dispo�(date/plan/equipment needs): Home with family care.� Social history reviewed.�
�
Functional and Medical Goals:�Modified Independent with ADL�s, ambulation, transfers�
�
Discharge Destination:�Acute inpatient rehab
�
Summary of recommendations:
CVA: Secondary prophylaxis with aspirin 81mg qd and Eliquis, statin, and blood pressure control (SBP less than 180 and diastolic less than 100 to participate with therapy for ischemic stroke). Continue to monitor neurologic status.
Pain: acetaminophen ,oxycodone as needed, gabapentin 100 mg 3 times daily. Dilaudid 0.5 mg IV Q4 as needed, Zofran 4 mg IV every 6 as needed. Patient must be on oral medication for at least 24 hours prior to discharge
GI Prophylaxis: recommend Pantoprazole while on Eliquis�
�
Thank you for allowing me to care for your patient. Please contact me with any questions or concerns.

Documented by User: Wilfred Alanis MD 03/15/25 22:01
Consultation - Medical
-
Referring Provider:�Dr. Torres
Chief Complaint:�CVA, acute on chronic left lower extremity ischemia s/p vascular surgery
�
History of Present Illness:�Patient is a 59-year-old male with PMH of (CAD s/p multiple stents, diastolic CHF, ischemic cardiomyopathy, left internal carotid artery occlusion, hypertension, hyperlipidemia, PAD associated with left critical limb
ischemia status post aortobifemoral grafting with revision on 08/11/[address] the [facility] ED on 03/10/2025 with worsening left lower extremity and left foot pain. Pain has been present over the past few months, especially when walking.
Patient is status post urgent iliac, femoral, popliteal and tibial thrombectomy, stenting of the previous aortobifemoral bypass and fasciotomy on 03/10 was on IV heparin drip, when stroke was alerted on 03/12 for aphasia and left upper extremity
ataxia.
CT of head-03/12/25- 6mm chronic lacunar infarct in the right basal ganglia and 8 mm chronic infarct in the left caudate nucleus.
NECK CTA 03/12/2025: Complete occlusion of both proximal internal carotid arteries. Enlarged bilateral vertebral arteries.
HEAD CTA -03/12/2025:Collateral blood supply reaching the terminal communicating segments of both intracranial ICAs. 50-70% diameter stenosis in the proximal A1 segment of the right MARIA L.
Patient reported return of normal speech hours after difficulty started. Neurology on 03/13- recommended keeping systolic blood pressure >140 for worsening neurological symptoms due to hypotension. Agreeable with anticoagulation as needed and
eventually needing MRI of the brain, increasing atorvastatin to 80 mg at bedtime in the setting of abrupt onset of stroke like symptoms in setting of hypotension, bilateral ICA occlusion, chronic infarcts.
03/13 Wound VAC was placed on the left lateral lower extremity at bedside. Per surgical team to remain in place for 1 week. PICCO dressing placed on left groin incision site. Scrotal hematoma unchanged.
03/14- seen by cardiology-Noted mild word finding difficulty. Sinus rhythm, rare PVC; no AF/PAT last 24 hours. Recommending continuing beta-magdy therapy with hold parameters for hypotension. Started on anticoagulant.
03/14-Brain MRI-Multiple bilateral foci of restricted diffusion are demonstrated, associated with diminished signal intensity on ADC, considered infarcts involving bilateral frontal lobes, left greater than right. Largest focus in the anterolateral
superior left frontal lobe measuring 1.1 cm. Associated minor edema. There is no mass effect.
Past Medical History:�CAD s/p multiple stents, diastolic CHF, ischemic cardiomyopathy, left internal carotid artery occlusion, hypertension, hyperlipidemia, PAD, left critical limb ischemia S/P aortobifemoral grafting with revision on 08/11/2019,
limited range of motion of left upper extremity since childhood due to trauma
Procedure History:�Left aortobifemoral grafting with revision on 08/11/2019, multiple cardiac stenting, left femoral and popliteal thrombectomy, angioplasty, stent-03/10/2025
Family History:�Fraternal grandmother�cerebral CVAs, Brother�CHF, [place]
�
Social History:�
Functional Level Premorbidly:�Independent with all activities�
Functional Level Currently:�Transfer�supervision, eating�independent, grooming�set up, toileting�min assist, upper extremity self-care�supervision, lower extremity self-care�max assist, bed mobility�supervision, ambulated 40 feet with rolling walker
close supervision
�
Tobacco:�Smoker
Alcohol:�Denies�
Drug use:�Denies�
�
Lives with:�Family in basement, 11 steps down
24-hour assistance available:�Possibly
Number of floors:�One-story with basement
# steps to enter:�1,
# steps to second floor: none
Potential First floor set up:�no
Driving:�yes
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
�
�
Allergies:�
Allergy/AdvReac Type Severity Reaction Status Date / Time
latex Allergy Breaks Out Verified 03/10/25 03:54
�
Review of Systems:�
Constitutional: (x) abNormal _fatigue
Eye: (x) Normal _
Ear/Nose/Throat: (x) Normal _
Respiratory: (x) Normal _
Cardiovascular: (x) abNormal _A-fib- new, PAD, s/p iliac, femoral and tibial thrombectomy, stenting of aortobifemoral bypass and fasciotomy
Gastrointestinal: (x) Normal _
Genitourinary: (x) Normal _
Musculoskeletal: (x) Normal _
Integumentary: (x) Normal _
Neurologic: (x) abNormal _ CVA, mild aphasia. Decreased sensation in the left leg prior to surgery, now better.
Psychiatric: (x) Normal _
Endocrine: (x) Normal _
Hematologic/Lymphatic: (x) Normal _
Allergic/Immunologic: (x) Normal _
�
Medications:�
Active Current Visit Medication List
Category Date Time Status
Acetaminophen [Tylenol] Med 03/10/25 14:31 Active
650 mg PO Q4HPRN PRN
Apixaban [Eliquis] Med 03/13/25 11:15 Active
5 mg PO BID
Aspirin Chewable [Low Strength Aspirin] Med 03/11/25 08:00 Active
81 mg PO DAILY
Atorvastatin [Lipitor] Med 03/12/25 18:00 Active
80 mg PO QPM
Carvedilol [Coreg] Med 03/12/25 20:00 Active
3.125 mg PO BID
Docusate W/Senna [Senokot-S] Med 03/13/25 18:00 Active
2 tablet PO QPM
Flush (0.9% Sodium Chloride) [Flush (Nss)] Med 03/11/25 04:00 Active
See Dose Instructions IV PER PROTOCOL
Gabapentin [Neurontin] Med 03/12/25 16:00 Active
100 mg PO TID
HYDROmorphone [Dilaudid] Med 03/10/25 14:31 Active
0.5 mg IV Q4HPRN PRN
Nicotine [Nicoderm Transdermal] Med 03/10/25 16:00 Active
7 mg TRANSDERM DAILY
Ondansetron Injectable [Zofran] Med 03/10/25 14:31 Active
4 mg IV Q6HPRN PRN
Oxycodone [Roxicodone] Med 03/10/25 14:31 Active
10 mg PO Q4HPRN PRN
Oxycodone [Roxicodone] Med 03/10/25 14:31 Active
5 mg PO Q4HPRN PRN
Polyethylene Glycol Powder [Miralax] Med 03/10/25 14:31 Active
17 grams PO DAILYPRN PRN
Remove Patch [Remove Nicotine Patch] Med 03/10/25 22:00 Active
1 patch REMOVE HS
�
Vitals:�
Temp Pulse Resp BP Pulse Ox
98.4 F 60 16 101/49 97
03/15/25 11:20 03/15/25 11:20 03/15/25 11:20 03/15/25 11:20 03/15/25 11:20
Height 5 ft 5 in
Actual Weight 84.8 kg
Body Mass Index (BMI) 31.1
�
Physical Exam:�
General Appearance/Observation: Well-developed, well-nourished male in no apparent distress.�
Pain/Comfort Assessment: Denies�
Mood/Affect: Appropriate�
�
Integumentary/Operative Site:�Wound VAC left lateral left leg, left medial leg-incision open to air with nayan�, left groin skin vac, wound with dressing�left medial ankle, left groin with dressing, tattoo-left chest, forearm
�� Pressure Ulcer Evaluation: absent over heels.�
��� Other Type of Wound: absent�
�
Eyes: Conjunctiva/Lids: normal���� Pupils: pupils equal round and reactive to light and Accommodation�
Ears/Nose/Throat: oral mucosa moist,� throat clear.������������ Lips/Teeth/Gums: normal�
Neck: No muscle spasm or tenderness�
Cardiovascular: Heart: regular, no murmur�
Pulses: dorsalis pedis 2+ on right. left leg is warm, no pulse palpated. Decreased cap refill on left. Not on right.�
Respiratory: Respiratory Effort/Chest Expansion: normal������� Auscultation: Clear to auscultation bilaterally�
Gastrointestinal: abdomen not tender, no distension, normal abdominal bowel sounds
Genitourinary: No Kamara�
Extremities:�Edema: 1+ edema-LLE, wound vac left lateral leg�Cyanosis: None�Trophic�changes: yes left leg more erythematous on left
�
Neurology Exam:
Orientation: Alert, Oriented to self, Time, Place�
Memory: Intact for immediate medical concerns
Repetition: Intact
Comprehension: Intact
Two step command: Intact
Naming: Intact
Cranial Nerves:
�� CNII:�Pupillary light reflex: Intact����Visual Field: Intact
�� CN III, IV, : Extraocular muscles: Intact�
�� CN V:�Facial Sensation�at�Forehead: Intact,�Maxilla: Intact,�Mandible: Intact
�� CN VII:�Facial movement: Symmetric
�� CN VIII:�Hearing: Normal
�� CN IX/X:�Speech & swallow: Normal,�Position of Uvula: Midline
�� CN XI:�Shoulder shrug: Symmetric
�� CN XII:�Tongue protrusion: Midline
Sensory:
�� Light touch: Intact in bilateral upper and lower extremities
��
�
Reflexes:
�� Biceps: 2+ bilaterally
�� Brachioradialis: 2+ bilaterally
�� Triceps: 2+ bilaterally
�� Patellar: 0 bilaterally
�� Achilles: 0 bilaterally
�� Babinski: Down going bilaterally
�� Clonus: NT
�� Mane: Negative bilaterally�
Cerebellar: Dysmetria/Ataxia: None�
Musculoskeletal: Motor: (Manual muscle scale 0-5)�
Muscle SA EF WE EE FF FA HF KE DF EHL PF
Right� 5 5 5 5 5 5 5 5 5 5 5
Left 5 5 5 5 5 5 4 4 5 5 5
�
Tone: Normal in all extremities�
Range of Motion: Passively within normal limits in all extremities,deferred LLE�
�
Lab Results:
Labs
WBC 9.4 10^3/uL (4.8-10.8) 03/15/25 08:58
RBC 3.17 10^6/uL (4.70-6.10) L 03/15/25 08:58
Hgb 9.8 g/dL (13.0-18.0) L 03/15/25 08:58
Hct 28.5 % (39.0-52.0) L 03/15/25 08:58
MCV 89.9 fL (80.0-94.0) 03/15/25 08:58
MCH 30.9 pg (27.0-31.0) 03/15/25 08:58
MCHC 34.4 g/dL (33.0-37.0) 03/15/25 08:58
RDW 13.1 % (11.5-14.5) 03/15/25 08:58
Plt Count 287 10^3/uL (130-400) D 03/15/25 08:58
MPV 9.2 fL (7.4-10.4) 03/15/25 08:58
Abs Immat Gran (auto) 0.0 10^3/uL (0-0.05) 03/10/25 04:38
Absolute Neuts (auto) 4.2 10^3/uL (1.4-6.5) 03/10/25 04:38
Absolute Lymphs (auto) 2.6 10^3/uL (1.2-3.4) 03/10/25 04:38
Absolute Monos (auto) 0.8 10^3/uL (0.1-0.6) H 03/10/25 04:38
Absolute Eos (auto) 0.2 10^3/uL (0-0.7) 03/10/25 04:38
Absolute Basos (auto) 0.1 10^3/uL (0-0.2) 03/10/25 04:38
Immature Gran % 0.4 % (0-0.5) 03/10/25 04:38
Neutrophils % 52.8 % (42.2-75.2) 03/10/25 04:38
Lymphocytes % 33.0 % (20.5-51.1) 03/10/25 04:38
Monocytes % 9.6 % (1.7-9.3) H 03/10/25 04:38
Eosinophils % 2.8 % (0-6) 03/10/25 04:38
Basophils % 1.4 % (0-2) 03/10/25 04:38
Nucleated RBC % 0 % (-) 03/10/25 04:38
PT 15.5 Sec (11.4-14.6) H 03/10/25 16:28
INR 1.20 03/10/25 16:28
APTT 82.8 Sec (23.4-35.0) H 03/13/25 03:59
Sodium 135 mmol/L (135-145) 03/15/25 08:58
Potassium 4.3 mmol/L (3.5-5.1) 03/15/25 08:58
Chloride 104 mmol/L (98-107) 03/15/25 08:58
Carbon Dioxide 26 mmol/L (22-30) 03/15/25 08:58
BUN 14 mg/dl (9-20) 03/15/25 08:58
Creatinine 0.8 mg/dL (0.7-1.3) 03/15/25 08:58
Estimated Creat Clear 98 ml/min 03/15/25 08:58
eGFR > 60.00 03/15/25 08:58
Glucose 122 mg/dl (70-99) H 03/15/25 08:58
Hemoglobin A1c 5.7 % (4.0-5.6) H 03/12/25 04:17
Calcium 8.7 mg/dl (8.4-10.2) 03/15/25 08:58
Magnesium 2.0 mg/dl (1.6-2.3) 03/11/25 04:18
Total Bilirubin 0.6 mg/dl (0.2-1.3) 03/10/25 04:38
AST 29 U/L (17-59) 03/10/25 04:38
ALT 26 U/L (0-50) 03/10/25 04:38
Alkaline Phosphatase 95 U/L (38-126) 03/10/25 04:38
Total Protein 7.0 g/dl (6.3-8.2) 03/10/25 04:38
Albumin 4.3 g/dl (3.5-5.0) 03/10/25 04:38
Triglycerides 120 mg/dl (10-149) 03/11/25 04:18
Total Cholesterol 168 mg/dl (50-199) 03/11/25 04:18
LDL Cholesterol, Calc 109 mg/dl 03/11/25 04:18
VLDL Cholesterol, Calc 24 mg/dl (0-30) 03/11/25 04:18
HDL Cholesterol 35 mg/dl 03/11/25 04:18
TSH (Reflex) 1.86 uIU/ml (0.47-4.68) 03/12/25 04:17
Hepatitis C Antibody Negative (Negative) 03/10/25 16:28
Blood Type O POS 03/10/25 04:38
Antibody Screen Negative (Negative) 03/10/25 04:38
�
Diagnostic Results:�as per HPI�
�
Head CT 03/12/2025:
1. No CT evidence for acute intracranial hemorrhage or transcortical infarct.
2. Small chronic transcortical infarct in the superolateral right frontal lobe.
3. 6 mm chronic lacunar infarct in the right basal ganglia.
4. 8 mm chronic infarct in the left caudate nucleus.
NECK CTA 03/12/2025:
1. COMPLETE OCCLUSION of both PROXIMAL ICAs.
2. Enlarged bilateral vertebral arteries.
3. 50-70% diameter stenosis at the origin of the left vertebral artery.
4. Moderately enlarged right paratracheal lymph node.
5. Moderate discogenic degenerative disease at C4/C5 with a disc-osteophyte complex causing moderate spinal cord compression and central canal stenosis.
6. Severe right neural foraminal narrowing at C5/C6.
HEAD CTA03/12/2025:
1. Collateral blood supply reaching the terminal communicating segments of both intracranial ICAs.
2. No blood flow in the cavernous segments of the ICAs.
3. 50-70% diameter stenosis in the proximal A1 segment of the right MARIA L.
4. Enlarged vertebral and basilar arteries without stenosis or occlusion.
5. Small chronic transcortical infarct in the superolateral right frontal lobe.
6. 6 mm chronic lacunar infarct in the right basal ganglia.
7. 9 mm chronic infarct in the left caudate nucleus.
Head CT 03/12/2025:No acute intracranial abnormality noted. Small old infarcts. Stable.
Assessment: 59-year-old male with PMH of (CAD s/p multiple stents, diastolic CHF, ischemic cardiomyopathy, left internal carotid artery occlusion, hypertension, hyperlipidemia, PAD with left critical limb ischemia s/p aortobifemoral grafting with
revision on 08/11/2019 presented to the ED on 03/10/2025 with worsening left lower extremity and left foot pain. on 03/10 underwent urgent iliac, femoral, popliteal and tibial thrombectomy, stenting of the previous aortobifemoral bypass and
fasciotomy. Stroke alert on 03/12 for aphasia and left upper extremity ataxia with imaging revealing complete occlusion of bilateral ICAs, and brain MRI with bilateral frontal lobes, left greater than right with the largest focus in the
anterolateral superior left frontal lobe associated with minor edema. No mass effect...
�
Plan�
PM&R�PT/OT to increase independence with ADLs, improve balance, coordination, endurance, strength, mobility, community reintegration, decreased burden of care on others and family education.�
�
CVA: Secondary prophylaxis with aspirin 81mg qd and Eliquis, statin, and blood pressure control (SBP less than 180 and diastolic less than 100 to participate with therapy for ischemic stroke). Monitor neurologic status.
Acute on chronic critical left lower limb ischemia: status post urgent iliac, femoral, popliteal and tibial thrombectomy, stenting of the previous aortobifemoral bypass, and fasciotomy on 03/10�
Aphasia:fluent. seems to have resolve. Speech evaluation for further assessment
Cognitive linguistic impairments: Speech recommending continuation of therapy at acute level. Supervision with higher level cognitive task
HTN: carvedilol, monitor closely�
HLD: Atorvastatin increased from 40 to 80 mg bedtime
Acute on chronic critical left lower limb ischemia: status post urgent iliac, femoral, popliteal and tibial thrombectomy, stenting of the previous aortobifem bypass, and fasciotomy on 03/10
Coronary artery disease/PAD�:s/p multiple stents. Did not have insurance and was not taking his Coreg. Coreg resumed at lower dose, statin, aspirin 81 mg aspirin, statin, beta-magdy�
Paroxysmal atrial fibrillation/ new dx this admission. Eliquis 5mg bid and carvedilol 3.125 twice daily�������������������������������������
CHF/ischemic cardiomyopathy: EF 40%, improved to 55-60% by echo 03/12/25
Anemia: post op- 9.8.� Continue to monitor.��
Hyponatremia: 135 as of 03/15
Leukocytosis: normalized-9.4 as of 03/15
Cervical spine: moderate discogenic degenerative disease at C4/C5 with a disc-osteophyte complex causing moderate spinal cord compression and central canal stenosis.
Psych: Psychology consult.� Monitor mood, adjust medications as needed.�
Skin: monitor for pressure sores/rashes/lesions.�
Pain: acetaminophen ,oxycodone as needed, gabapentin 100 mg 3 times daily. Dilaudid 0.5 mg IV Q4 as needed, Zofran 4 mg IV every 6 as needed
Bowel: Colace and Senna, PRN bisacodyl.� MiraLAX 17 g daily as needed
Bladder: Time void, PVRs, PRN straight cath.�
Tobacco Abuse: Smoking cessation counseling. Nicotine patch.
GI Prophylaxis: recommend Pantoprazole while on Eliquis�
DVT Prophylaxis: Mechanical and Eliquis 5 mg twice a day
Pulmonary: Incentive spirometry�
Obesity: Continue to counseling department chair patient about diet adjustments to control obesity. Body habitus and increased force to move body and extremities causes further difficulty with functional tasks.�
Safety: Continue to reinforce assistance with all transfers.�
Code Status:� Full code
Dispo�(date/plan/equipment needs): Home with family care.� Social history reviewed.�
Functional and Medical Goals:�Modified Independent with ADL�s, ambulation, transfers�
Discharge Destination:�Acute inpatient rehab
Attending Statement:
I saw and examined the patient today.� Reviewed care plan with patient, therapy, nursing, and physician traffic assistant.� I agree with the above subjective and physical exam, and plan as documented by LUCERO Rosenbaum with adjustments made as necessary.
Summary of recommendations:
CVA: Secondary prophylaxis with aspirin 81mg qd and Eliquis, statin, and blood pressure control (SBP less than 180 and diastolic less than 100 to participate with therapy for ischemic stroke). Continue to monitor neurologic status.
Pain: acetaminophen ,oxycodone as needed, gabapentin 100 mg 3 times daily. Dilaudid 0.5 mg IV Q4 as needed, Zofran 4 mg IV every 6 as needed. Patient must be on oral medication for at least 24 hours prior to discharge
GI Prophylaxis: recommend Pantoprazole while on Eliquis�
Acute on chronic critical left lower limb ischemia: status post urgent iliac, femoral, popliteal and tibial thrombectomy, stenting of the previous aortobifemoral bypass, and fasciotomy on 03/10�
Aphasia:fluent. seems to have resolve. Speech evaluation for further assessment
Cognitive linguistic impairments: Speech recommending continuation of therapy at acute level. Supervision with higher level cognitive task
HLD: Atorvastatin increased from 40 to 80 mg bedtime
Acute on chronic critical left lower limb ischemia: status post urgent iliac, femoral, popliteal and tibial thrombectomy, stenting of the previous aortobifem bypass, and fasciotomy on 03/10
Coronary artery disease/PAD�:s/p multiple stents. Did not have insurance and was not taking his Coreg. Coreg resumed at lower dose, statin, aspirin 81 mg aspirin, statin, beta-magdy�
Paroxysmal atrial fibrillation/ new dx this admission. Eliquis 5mg bid and carvedilol 3.125 twice daily�������������������������������������
CHF/ischemic cardiomyopathy: EF 40%, improved to 55-60% by echo 03/12/25
�
Thank you for allowing me to care for your patient. Please contact me with any questions or concerns.
Consultation
-
Date/Time Consultation Performed: 03/15/25
Requesting Provider: Dr. Mary Torres
Performing Provider: Darlene Rosenbaum/Dr. Wilfred Alanis
Reason for Consultation: Stroke
--- NOTE | 2025-03-15 16:30 | WOUNDNOTE ---
WOC RN NOTE: Plan is for possible rehab at [facility]. FAM Chow and made her aware that patient is currently using a large [employer] Peel and Place wound vac dressing. Sylvie to make Ramiro aware.
[2025-03-15] MEDS: LIPITOR 80 MG PO (16:51)
[2025-03-15] MEDS: SENOKOT-S 2 TABLET PO (16:51)
[2025-03-15] MEDS: COREG 3.125 MG PO (20:34)
[2025-03-15] MEDS: REMOVE NICOTINE PATCH REMOVE (21:40)
[2025-03-16 03:10] VITALS: BP 111/56
[2025-03-16 06:00] VITALS: BMI 30.4
[2025-03-16 07:10] VITALS: BP 105/61
--- NOTE | 2025-03-16 08:13 | W.PN.HOSP.TC ---
Today's Communication/Plan
-
dc planning to acute rehab
Assessment / Plan
Assessment / Plan
Physical Exam
General: No acute respiratory distress, aphasic for short time
HEENT: Normocephalic, Atraumatic, EOMI, MMM
Respiratory: Clear to Auscultation bilaterally
Cardiac: Normal S1/S2, Regular Rate and Rhythm
GI: Soft, Nontender, Nondistended, Normal Bowel Sounds
Extremities: No Clubbing, Cyanosis
Left lower extremity incision dressed
Neuro: awake, oriented to self and surroundings. Speech is fluent. Followed commands appropriately.
Psych; calm
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
hypotensive toxic metabolic encephalopathy
His neurological symptoms
Worsened with hypotension. Keeping systolic blood pressure more than 100
Anticoagulated with Eliquis and aspirin
Reconsulted PT/OT/speech
plan to dc to acute rehab unit
Appreciate ICU doctor and staff, neurology help
# Mild acute blood loss anemia, I think baseline HGB around 11 and not 17 as on admission ( likely hemoconcentrated)
# hyponatremia, mild
# Paroxysmal atrial fibrillation/new diagnosis this admission
Telemetry showed tachycardia/atrial fibrillation
Discussed with vascular and cardiology. Okay to oral anticoagulation. Started on Eliquis
#Acute on chronic critical left lower limb ischemia
Appreciate vascular surgery input, status post urgent iliac, femoral, popliteal and tibial thrombectomy, stenting of the previous aortobifem bypass, and fasciotomy on 03/10
s/p IV heparin drip, continue aspirin, resumed on statin, wound care
Appreciate vascular / ICU doctors help
#Severe PAD with continued tobacco use
#History of left carotid artery occlusion
Continue aspirin, resumed statin
#Leukocytosis
Likely reactive, patient is afebrile
Monitor off antibiotics
#Coronary artery disease status post multiple stents
No chest pain
Patient did not have insurance, and was not taking his Coreg
Continue aspirin 81 mg daily, resume Coreg but lowered the dose to keep SBP >100. Resumed statin
#Cigarette nicotine dependency
Patient has been counseled to quit smoking
Nicotine patch as needed
#History of essential hypertension
Monitor blood pressure
Held BP meds until neuro status stabilized.
#Hyperlipidemia
LDL 109, resumed statin
#Obesity due to excess calories
Affects all aspects of care
DVT prophylaxis�heparin drip
Full code
Total discharge time spent to see the patient on the floor, examine the patient, review data and lab results, discuss discharge plan with patient, consultants, nursing staff around 65 minutes.
Anticipated Discharge: Today
Subjective/Interval History
-
Date of Service: March 16, 2025
No complaints
No sob
No chest pain
Objective Data
-
Vital Signs:
Vital Signs
Temp Pulse Resp BP Pulse Ox
98.2 F 70 17 111/56 96
03/16/25 03:10 03/16/25 03:10 03/16/25 03:10 03/16/25 03:10 03/16/25 03:10
I&O
03/15/25 03/16/25 03/17/25
06:59 06:59 06:59
Intake Total 480 / 480 960 / 960
Output Total 500 / 500 865 / 865
Balance -20 / -20 95 / 95
[2025-03-16] MEDS: ELIQUIS 5 MG PO ×2 (08:58→20:24)
[2025-03-16] MEDS: COREG PO (08:58)
[2025-03-16] MEDS: LOW STRENGTH ASPIRIN 81 MG PO (08:58)
[2025-03-16] MEDS: NEURONTIN 100 MG PO ×3 (08:58→23:28)
--- NOTE | 2025-03-16 09:39 | CM ---
Per Wound Care: If patient goes to [facility] they can order 'peel and place' dressings-Large. Once a week dressing change.
[2025-03-16] MEDS: PREVNAR 20 0.5 ML IM (11:09)
[2025-03-16 11:25] VITALS: BP 122/67
[2025-03-16 15:05] VITALS: BP 148/81
--- NOTE | 2025-03-16 16:35 | CM ---
Addendum entered by Bettye Jones 03/16/25 17:43:
Per Iliana Clark @ [facility], they cannot accept patient today with [employer] Peel and [employer] wound system. staff is not trained on the product.
Care Team notified via [facility]. To accept the patient, a basic wound vac needs to be ordered.
Original Note:
Patient discharged.
Store Associate spoke with Iliana at [facility] for transfer status; ability to accept patient today was not confirmed
[2025-03-16] MEDS: SENOKOT-S 2 TABLET PO (17:35)
[2025-03-16] MEDS: LIPITOR 80 MG PO (17:35)
[2025-03-16 19:19] VITALS: BP 122/65
[2025-03-16] MEDS: COREG 3.125 MG PO (20:24)
[2025-03-16 23:04] VITALS: BP 116/56
[2025-03-16] MEDS: REMOVE NICOTINE PATCH 1 PATCH REMOVE (23:28)
--- NOTE | 2025-03-16 23:44 | PTCARENOTE ---
Pt reports he has had constant hiccups for 5 days that have been causing increasing discomfort. Reached out to PROJECT MANAGER ENTERTAINMENT AND MEDIA to review chart.
[2025-03-17] VITALS (7 sets, daily range): BP systolic 98–129; BP diastolic 52–62; BMI 29.3
[2025-03-17] MEDS: REGLAN 10 MG IV ×4 (00:01→21:47)
--- NOTE | 2025-03-17 01:14 | PTCARENOTE ---
Pt asleep @ this time, appears to be in no distress from hiccups. educated to notify Nsg if hiccups return
[2025-03-17] MEDS: NEURONTIN 100 MG PO ×3 (08:22→20:39)
[2025-03-17] MEDS: COREG PO (08:22)
[2025-03-17] MEDS: ELIQUIS 5 MG PO ×2 (08:22→20:39)
[2025-03-17] MEDS: LOW STRENGTH ASPIRIN 81 MG PO (08:23)
--- NOTE | 2025-03-17 08:56 | W.PN.HOSP.TC ---
Today's Communication/Plan
-
Await [facility] to accept the pt
Assessment / Plan
Assessment / Plan
Physical Exam
General: No acute respiratory distress, aphasic for short time
HEENT: Normocephalic, Atraumatic, EOMI, MMM
Respiratory: Clear to Auscultation bilaterally
Cardiac: Normal S1/S2, Regular Rate and Rhythm
GI: Soft, Nontender, Nondistended, Normal Bowel Sounds
Extremities: No Clubbing, Cyanosis
Left lower extremity incision dressed
Neuro: awake, oriented to self and surroundings. Speech is fluent. Followed commands appropriately.
Psych; calm
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
hypotensive toxic metabolic encephalopathy
His neurological symptoms
Worsened with hypotension. Keeping systolic blood pressure more than 100
Anticoagulated with Eliquis and aspirin
Reconsulted PT/OT/speech
plan to dc to acute rehab unit
Appreciate ICU doctor and staff, neurology help
# Mild acute blood loss anemia, I think baseline HGB around 11 and not 17 as on admission ( likely hemoconcentrated)
# hyponatremia, mild
# Paroxysmal atrial fibrillation/new diagnosis this admission
Telemetry showed tachycardia/atrial fibrillation
Discussed with vascular and cardiology. Okay to oral anticoagulation. Started on Eliquis
#Acute on chronic critical left lower limb ischemia
Appreciate vascular surgery input, status post urgent iliac, femoral, popliteal and tibial thrombectomy, stenting of the previous aortobifem bypass, and fasciotomy on 03/10
s/p IV heparin drip, continue aspirin, resumed on statin, wound care
Appreciate vascular / ICU doctors help
#Severe PAD with continued tobacco use
#History of left carotid artery occlusion
Continue aspirin, resumed statin
#Leukocytosis
Likely reactive, patient is afebrile
Monitor off antibiotics
#Coronary artery disease status post multiple stents
No chest pain
Patient did not have insurance, and was not taking his Coreg
Continue aspirin 81 mg daily, resume Coreg but lowered the dose to keep SBP >100. Resumed statin
#Cigarette nicotine dependency
Patient has been counseled to quit smoking
Nicotine patch as needed
#History of essential hypertension
Monitor blood pressure
Held BP meds until neuro status stabilized.
#Hyperlipidemia
LDL 109, resumed statin
#Obesity due to excess calories
Affects all aspects of care
DVT prophylaxis�heparin drip
Full code
Total time spent to see the patient on the floor, examine the patient, review data and lab results, discuss treatment plan with patient, consultants, nursing staff around 45 minutes.
Anticipated Discharge: Within 24 hours
Subjective/Interval History
-
Date of Service: March 17, 2025
No complaints
Objective Data
-
Vital Signs:
Vital Signs
Temp Pulse Resp BP Pulse Ox
98.5 F 58 18 100/52 98
03/17/25 07:10 03/17/25 08:22 03/17/25 07:10 03/17/25 08:22 03/17/25 07:10
I&O
03/16/25 03/17/25 03/18/25
06:59 06:59 06:59
Intake Total 960 / 960 960 / 960 480 / 480
Output Total 865 / 865 525 / 525
Balance 95 / 95 435 / 435 480 / 480
--- NOTE | 2025-03-17 11:07 | CM ---
LEATHA sent message to Iliana/Ramiro liaison. LEATHA called Ramiro Villanueva at [phone] for clarification on the wound vac. Pt is medically stable for dc. Spoke with KEITH Sarah who will reach out to the nurse integrated logistics support manager. There is no nurse supervisor locomotive or
integrated logistics support manager in house. KEITH Sarah is not familiar with this case. Callback info given.
[2025-03-17] MEDS: SENOKOT-S 2 TABLET PO (17:23)
[2025-03-17] MEDS: LIPITOR 80 MG PO (17:23)
[2025-03-17] MEDS: COREG 3.125 MG PO (20:39)
[2025-03-17] MEDS: REMOVE NICOTINE PATCH REMOVE (20:40)
--- NOTE | 2025-03-17 22:55 | PTCARENOTE ---
pt woke up from sleeping and had an episode of valdovinos/clear emesis, reports it came on suddenly and denies that he feels nausea now. Pt report he had BM yesterday. Pt did receive Reglan @2200 for his hiccups. Pt educated on notifying Nsg if any
symptoms worsen, pt agreeable.
[2025-03-18] VITALS (7 sets, daily range): BP systolic 90–121; BP diastolic 50–59
[2025-03-18] MEDS: NEURONTIN 100 MG PO ×3 (08:17→21:24)
[2025-03-18] MEDS: COREG 3.125 MG PO ×2 (08:17→21:24)
[2025-03-18] MEDS: LOW STRENGTH ASPIRIN 81 MG PO (08:17)
[2025-03-18] MEDS: PROTONIX 40 MG PO ×2 (08:17→21:24)
[2025-03-18] MEDS: ELIQUIS 5 MG PO ×2 (08:18→21:24)
--- NOTE | 2025-03-18 08:58 | W.PN.HOSP.TC ---
Today's Communication/Plan
-
Had vomiting
Start PPI for BID
Assessment / Plan
Assessment / Plan
Physical Exam
General: No acute respiratory distress, aphasic for short time
HEENT: Normocephalic, Atraumatic, EOMI, MMM
Respiratory: Clear to Auscultation bilaterally
Cardiac: Normal S1/S2, Regular Rate and Rhythm
GI: Soft, Nontender, Nondistended, Normal Bowel Sounds
Extremities: No Clubbing, Cyanosis
Left lower extremity incision dressed
Neuro: awake, oriented to self and surroundings. Speech is fluent. Followed commands appropriately.
Psych; calm
# Nonbilious vomiting last night
He denies GI symptoms today,
Since he is on dual antiplatelet therapy, will start Protonix twice a day for short time then changed to once a day for GI prophylaxis.
No abdominal pain or tenderness on examination
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
hypotensive toxic metabolic encephalopathy
His neurological symptoms
Worsened with hypotension. Keeping systolic blood pressure more than 100
Anticoagulated with Eliquis and aspirin
Reconsulted PT/OT/speech
plan to dc to acute rehab unit, await case management planning
Appreciate ICU doctor and staff, neurology help
# Mild acute blood loss anemia, I think baseline HGB around 11 and not 17 as on admission ( likely hemoconcentrated)
# hyponatremia, mild
# Paroxysmal atrial fibrillation/new diagnosis this admission
Telemetry showed tachycardia/atrial fibrillation
Discussed with vascular and cardiology. Okay to oral anticoagulation. Started on Eliquis
#Acute on chronic critical left lower limb ischemia
Appreciate vascular surgery input, status post urgent iliac, femoral, popliteal and tibial thrombectomy, stenting of the previous aortobifem bypass, and fasciotomy on 03/10
s/p IV heparin drip, continue aspirin, resumed on statin, wound care
Appreciate vascular / ICU doctors help
#Severe PAD with continued tobacco use
#History of left carotid artery occlusion
Continue aspirin, resumed statin
#Leukocytosis
Likely reactive, patient is afebrile
Monitor off antibiotics
#Coronary artery disease status post multiple stents
No chest pain
Patient did not have insurance, and was not taking his Coreg
Continue aspirin 81 mg daily, resume Coreg but lowered the dose to keep SBP >100. Resumed statin
#Cigarette nicotine dependency
Patient has been counseled to quit smoking
Nicotine patch as needed
#History of essential hypertension
Monitor blood pressure
Held BP meds until neuro status stabilized.
#Hyperlipidemia
LDL 109, resumed statin
#Obesity due to excess calories
Affects all aspects of care
DVT prophylaxis�heparin drip
Full code
Total time spent to see the patient on the floor, examine the patient, review data and lab results, discuss treatment plan with patient, consultants, nursing staff around 45 minutes.
Anticipated Discharge: 24 - 48 hours
Subjective/Interval History
-
Date of Service: March 18, 2025
No chest pain
No sob
No abdominal pain
Had vomiting last night
Objective Data
-
Vital Signs:
Vital Signs
Temp Pulse Resp BP Pulse Ox
98.7 F 68 18 116/58 96
03/18/25 07:00 03/18/25 08:17 03/18/25 07:00 03/18/25 08:17 03/18/25 07:00
I&O
03/17/25 03/18/25 03/19/25
06:59 06:59 06:59
Intake Total 960 / 960 1440 / 1440 480 / 480
Output Total 525 / 525 675 / 675 400 / 400
Balance 435 / 435 765 / 765 80 / 80
[2025-03-18] MEDS: LIPITOR 80 MG PO (17:19)
[2025-03-18] MEDS: SENOKOT-S 2 TABLET PO (17:19)
[2025-03-18] MEDS: FLUSH (NSS) 2 FLUSH IV (21:23)
[2025-03-18] MEDS: REGLAN 10 MG IV (21:23)
[2025-03-18] MEDS: REMOVE NICOTINE PATCH REMOVE (21:24)
[2025-03-19 03:39] VITALS: BP 113/45
[2025-03-19 06:00] VITALS: BMI 29.3
[2025-03-19 07:15] VITALS: BP 102/59
[2025-03-19] MEDS: COREG PO (07:36)
[2025-03-19] MEDS: LOW STRENGTH ASPIRIN 81 MG PO (07:36)
[2025-03-19] MEDS: NEURONTIN 100 MG PO ×2 (07:37→15:35)
[2025-03-19] MEDS: ELIQUIS 5 MG PO (07:38)
[2025-03-19] MEDS: PROTONIX 40 MG PO (08:30)
--- NOTE | 2025-03-19 11:04 | VNURNOTE ---
Home Health Liaison met with patient at bedside to discuss [facility] nurse/therapy, visits, schedule and homebound status. Patient is agreeable and understands that visits at home will be 2-3 x per week to assess and teach medical management and wound
vac. Patient does not have a PCP, advised patient [facility]; provided brochure, pt verbalized understanding. Patient is aware that [facility] will contact them for start of care in 1-2 days after discharge from .
[facility] referral completed in [facility] Port.
[2025-03-19 11:05] VITALS: BP 120/48
--- NOTE | 2025-03-19 13:00 | W.PN.HOSP.TC ---
Today's Communication/Plan
-
Patient is stable for discharge pending placement in acute rehab
Assessment / Plan
Assessment / Plan
59-year-old male who presented with critical limb ischemia and is status post vascular surgery with wound VAC. His course has been complicated by encephalopathy found secondary to CVA with multiple small acute infarcts with symptoms worsening
during periods of hypotension, and a new diagnosis of A-fib.
CVA
Multiple small acute infarcts, bilateral, suspect embolic phenomena
hypotensive toxic metabolic encephalopathy
His neurological symptoms worsened with hypotension. Neurology recommended systolic blood pressure more than 140 and eventual MRI of brain
Anticoagulated with Eliquis and aspirin, continue statin
Reconsulted PT/OT/speech
plan to dc to acute rehab unit, await case management planning
Acute on chronic critical left lower limb ischemia
#Severe PAD with continued tobacco use
#History of left carotid artery occlusion
Appreciate vascular surgery. S/p urgent iliac, femoral, popliteal and tibial thrombectomy, stenting of the previous aortobifem bypass, and fasciotomy on 03/10
s/p IV heparin drip,, now on eliuis. Continue aspirin, resumed on statin
wound care for wound vac
Acute blood loss anemia
Hgb 12.3 -> 9.8
Stable for last 2 days no acute bleeding noted, continue to monitor
hyponatremia, mild
resolved
Paroxysmal atrial fibrillation
new diagnosis this admission
Telemetry showed tachycardia/atrial fibrillation
Discussed with vascular and cardiology re: oral anticoagulation. Started on Eliquis. Low-dose carvedilol for rate control with hold parameters due to hypotension
Coronary artery disease status post multiple stents
Patient did not have insurance, and was not taking his Coreg
Continue aspirin 81 mg daily, resume Coreg but lowered the dose to keep SBP >140. Resumed statin
Cigarette nicotine dependency
Patient has been counseled to quit smoking
Nicotine patch as needed
DVT prophylaxis�eliquis
Full code
Anticipated Discharge: Within 24 hours (pending placement in acute rehab)
Subjective/Interval History
-
Date of Service: March 19, 2025
Pt c/o hiccups otherwise denies issues overnight.
Objective Data
-
Vital Signs:
Vital Signs
Temp Pulse Resp BP Pulse Ox
97.8 F 62 16 120/48 99
03/19/25 11:05 03/19/25 11:05 03/19/25 11:05 03/19/25 11:05 03/19/25 11:05
I&O
03/18/25 03/19/25 03/20/25
06:59 06:59 06:59
Intake Total 1440 / 1440 1080 / 1080
Output Total 675 / 675 1650 / 1650
Balance 765 / 765 -570 / -570
Review of Systems
-
All other systems: Reviewed and negative
Physical Exam
-
General: No Apparent Distress
HEENT: Moist Mucous Membranes, Anicteric and PERRLA
Respiratory: Clear to Auscultation; Negative Wheezes, Rales or Rhonchi
Cardiac: Regular Rhythm and S1/S2; Negative Murmur or Gallop
GI: Soft, Nontender, Nondistended and Normal Bowel Sounds
Musculoskeletal: Other (LLE nayan incision c/d/i, wound vac in place)
Skin: Warm and Dry
Neuro: Awake and AO x 3
Hematologic / Lymphatic: No Lymphadenopathy
Psych: Calm
--- NOTE | 2025-03-19 13:01 | CM ---
Addendum entered by Mat Vance 03/19/25 15:40:
Discharge order noted. Pt is aware, expressed his agreement and pt stated his mother in law to transport home.
Please fax discharge instructions to [facility] at [phone]
D/c plan: home with wound vac, [facility] and family support.
Original Note:
CM following re: discharge planning.
Reviewed pt's chart, met with pt.
Per [facility] acute air liaison and special staff, pt is at supervision level and does not qualify for acute level of rehab.
Updated PT and OT evaluations noted - home PT/OT recommended. Pt is aware, expressed his agreement. VN choices provided, pt preferred [facility]. A referral to [facility] made.
Per wound care VN, pt's home wound vac has been approved and it will be placed at discharge.
D/c plan: home with wound vac, [facility] and family support.
CM will follow with discharge plan updaters hospitalization progresses
--- NOTE | 2025-03-19 14:48 | WOUNDNOTE ---
[facility] RN note: Patient for discharge to home today. Switched from hospital Vac ulta pump to patient's ready care vac (serial #[id number]). Instructed patient how to turn on/off vac pump, clamp/disconnect and reconnect and unclamp vac tubing, how to
change vac canister, how to trouble shoot vac alarm and if karl bleeding occurs to clamp and disconnect vac tubing, turn of vac pump and call 911. Instructed how to fix an air leak with a piece of vac drape/transparent dressing. Patient instructed
to call or [employer] support 15/03 if vac dressing cannot maintain it's suction and that if the vac suction if off for more than 2 hours, the vac dressing should be removed and a temporary dressing (i.e. Saline gauze or non stick dressing)
until VN can apply a new vac dressing. Suggested patient shower 1hr prior to VN visit for showering and he needs to disconnect vac tubing from pump/canister tubing for showering. Patient's vac dressing due to be changed on Wednesday. Notified Stephania
ABRAHAN Macias VN nurse Liasion. Clarified with Edwige Kerr, vascular PA that patient can shower prior to VN visits with vac dressing in place and that if the Vac Peel and Place dressing kits are not delivered to patient's home, VN can use regular
black vac dressing kits and change q 48-72hours (can use adaptic with black foam prn pain). Updated KEITH Ponce.
[2025-03-19 15:10] VITALS: BP 128/64
--- NOTE | 2025-03-19 15:10 | W.DCSUMMARY ---
Discharge Summary
Discharge Data
Date of Admission: 03/10/25
Date of Discharge: 03/19/25
Total time spent discharging patient (in min): 40
-
Pending Results: No
Hospital Course
Discharging Physician :
Dr. Adela Camejo
Disposition :
Home with home care
Principal Discharge diagnosis :
Acute arterial insufficiency
CVA
A-fib
Hyponatremia
Acute blood loss anemia
Chronic Discharge diagnosis :
CAD
Hospital Course :
�Patient is a 59-year-old male with PMH of (CAD s/p multiple stents, diastolic CHF, ischemic cardiomyopathy, left internal carotid artery occlusion, hypertension, hyperlipidemia, PAD associated with left critical limb ischemia status post
aortobifemoral grafting with revision on 08/11/2019 who presented to the [facility] ED on 03/10/2025 with worsening left lower extremity and left foot pain. Pain has been present over the past few months, especially when walking.
Patient is status post urgent iliac, femoral, popliteal and tibial thrombectomy, stenting of the previous aortobifemoral bypass and fasciotomy on 03/10. He was on an IV heparin drip. stroke was alerted on 03/12 for aphasia and left upper extremity
ataxia. Neurology recommended keeping systolic blood pressure >140 for worsening neurological symptoms due to hypotension.
CVA
Multiple small acute infarcts, bilateral, suspect embolic phenomena
hypotensive toxic metabolic encephalopathy
His neurological symptoms worsened with hypotension. Neurology recommended systolic blood pressure more than 140. MRI brain 03/14/2025 - Evidence of B/L acute infarcts frontal lobe left greater than right
Anticoagulated with Eliquis and aspirin, continue statin
Reconsulted PT/OT/speech
Initially planned to dc to acute rehab unit, but due to improvement with PT patient was no longer excepted by the facility and had to go home with home health care
Acute on chronic critical left lower limb ischemia
#Severe PAD with continued tobacco use
#History of left carotid artery occlusion
Appreciate vascular surgery. S/p urgent iliac, femoral, popliteal and tibial thrombectomy, stenting of the previous aortobifem bypass, and fasciotomy on 03/10
s/p IV heparin drip,, now on eliquis. Continue aspirin, resumed on statin
Home wound vac
Acute blood loss anemia
Hgb 12.3 -> 9.8
Stable for last 2 days no acute bleeding noted
hyponatremia, mild
resolved
Paroxysmal atrial fibrillation
new diagnosis this admission
Telemetry showed tachycardia/atrial fibrillation
Discussed with vascular and cardiology re: oral anticoagulation. Started on Eliquis. Low-dose carvedilol for rate control with hold parameters due to hypotension
Coronary artery disease status post multiple stents
Patient did not have insurance, and was not taking his Coreg
Continue aspirin 81 mg daily, hold off Coreg to keep SBP >140. Resumed statin
Cigarette nicotine dependency
Patient has been counseled to quit smoking
Nicotine patch
Important imaging findings :
CT abd: IMPRESSION:
No evidence of abdominal aortic dissection or aneurysm.
Marked narrowing of the proximal celiac axis similar to prior study. Bilateral renal artery stenoses again noted.
Postoperative changes of the abdominal aorta with bypass noted, occlusion of the left aspect of the bypass new in the interval since prior CTA. Right aspect of bypass is narrowed though patent.
Reconstitution of left femoral bifurcation. Right femoral artery patent. Bilateral femoral arteries patent. Right popliteal artery patent.
Left popliteal artery occluded proximal to the tibial-peroneal junction.
Right calf arteries patent. Left calf arteries not opacified.
Recommend vascular surgery consultation.
CTA h/n:
IMPRESSION:
NECK CTA:
1. COMPLETE OCCLUSION of both PROXIMAL ICAs.
2. Enlarged bilateral vertebral arteries.
3. 50-70% diameter stenosis at the origin of the left vertebral artery.
4. Moderately enlarged right paratracheal lymph node.
5. Moderate discogenic degenerative disease at C4/C5 with a disc-osteophyte complex causing moderate spinal cord compression and central canal stenosis.
6. Severe right neural foraminal narrowing at C5/C6.
HEAD CTA:
1. Collateral blood supply reaching the terminal communicating segments of both intracranial ICAs.
2. No blood flow in the cavernous segments of the ICAs.
3. 50-70% diameter stenosis in the proximal A1 segment of the right MARIA L.
4. Enlarged vertebral and basilar arteries without stenosis or occlusion.
5. Small chronic transcortical infarct in the superolateral right frontal lobe.
6. 6 mm chronic lacunar infarct in the right basal ganglia.
7. 9 mm chronic infarct in the left caudate nucleus.
MRI brain:
IMPRESSION:
Small acute infarcts are demonstrated involving the bilateral frontal lobes, left greater than right. This suggests possibility of embolic phenomenon. No associated mass effect.
Findings suspicious for small chronic subcortical white matter lacunar infarct in the right frontal lobe and right putamen.
Procedure findings :
Pre-op Diagnosis: Left Leg Acute Limb Ischemia
Post-op Diagnosis: Same
Procedure:
Left Aortobifemoral Limb Jenniffer Thrombectomy
Left Femoral bovine pericardial patch angioplasty
Balloon Expandable Stent Placement in Proximal Left Iliac Limb with 10x39 VBX
Aortogram
Left Leg Angiogram
Self Expanding Stent Placement in Left Iliac Limb with 8x50 Viabahn
SFA Jenniffer Thrombectomy
Left Below Knee Popliteal Artery Cut Down and Jenniffer Thrombectomy of Below Knee Popliteal Artery, Anterior Tibial Artery
Left Distal Posterior Tibial Cut Down and Thrombectomy of Posterior Tibial Artery and Plantar Artery
Four Compartment Fasciotomy
Discharge Plan
-
Patient Disposition: Home (Routine Discharge)
Discharge Diagnosis/Procedures: Pre-op Diagnosis: Left Leg Acute Limb Ischemia
Procedure:
Left Aortobifemoral Limb Jenniffer Thrombectomy
Left Femoral bovine pericardial patch angioplasty
Balloon Expandable Stent Placement in Proximal Left Iliac Limb with 10x39 VBX
Aortogram
Left Leg Angiogram
Self Expanding Stent Placement in Left Iliac Limb with 8x50 Viabahn
SFA Jenniffer Thrombectomy
Left Below Knee Popliteal Artery Cut Down and Jenniffer Thrombectomy of Below Knee Popliteal Artery, Anterior Tibial Artery
Left Distal Posterior Tibial Cut Down and Thrombectomy of Posterior Tibial Artery and Plantar Artery
Four Compartment Fasciotomy
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
# Paroxysmal atrial fibrillation/new diagnosis this admission
#Coronary artery disease status post multiple stents
Condition: Good
Diet: As tolerated
Activity: No strenuous activity
Driving Restrictions: Not until seen by your Dr
Bathing Restrictions: OK to Shower
Activity Restrictions/Additional Instructions:
Wound Care Instructions
Wound Vac Therapy - Left Medial Calf - Vac Peel and Place Black Foam; Change every week (7 days) and PRN if unable to obtain seal. Low Intensity, Continuous at 125mmHg. Next vac peel and place dressing change due on Wednesday03/21/25. Use regular
vac black foam (use adaptic and black foam prn pain), change q 48-72hours, pump setting 125mmgh until Vac peel and place vac dressings available.
03/13/25
Left Ankle - Can place nonadherent pad over left ankle sutures, then gauze pad, secure with paper tape. Change daily or as needed if soiled.
Follow up with vascular surgeon.
Stand Alone Forms: Vascular Surg Discharge Instr
Referrals:
Rahel Fried MD [Active, Pulmonary Medicine] - in six weeks
Wilfred Mock MD [Active, Cardiology] - 04/11/25 2:40 pm
Referral Note: You have an appointment to see Dr. Mock's physician medical office assistant instructor, Lisa, at the [facility] on 04/11/2025 at 2:40 PM. You are then scheduled to see Dr. Mock at the [facility] office on 06/11/2025 at 3:20 PM. Please call
[phone] if need to reschedule.
UNKNOWN - PT DOES,NOT KNOW [Family Provider]
Saul,Stacy R, CAREER RESOURCE SPECIALIST [Specified Professional Personl, Vascular Surgery] - 03/30/25 1:00 pm
Additional Discharge Medication Instructions: hold carvedilol until systolic blood pressure (top number)consistently >140
Prescriptions:
New
Eliquis 5 mg Tablet
5 mg PO BID Qty: 60 11RF
atorvastatin 80 mg Tablet
80 mg PO QPM Qty: 30 0RF
polyethylene glycol 3350 17 gram Powder In Packet
17 g PO DAILYPRN PRN (Reason: constipation) Qty: 14 0RF
carvedilol 3.125 mg Tablet
3.125 mg PO BID Qty: 60 0RF
acetaminophen 325 mg Tablet
650 mg PO Q4HPRN PRN (Reason: mild pain/MADDEN/temp> 100.4F) Qty: 10 0RF
gabapentin 100 mg Capsule
100 mg PO TID Qty: 90 0RF
nicotine 7 mg/24 hr Patch 24 Hour
7 mg transdermal DAILY Qty: 30 0RF
sennosides-docusate sodium 8.6-50 mg Tablet
2 tab PO QPM Qty: 60 0RF
tramadol 50 mg tablet
50 mg PO BID PRN (Reason: severe pain) Qty: 10 0RF
Continued
aspirin 81 MG tablet,chewable
81 mg PO DAILY 0RF
Discharge Orders:
Discharge Patient (As Directed); Ordered 03/19/25
Ordered By: Adela Camejo
Discharge Date and Time
Print Language: YAKUT
[2025-03-19 15:48] VITALS: BP 128/64; PULSE 61; O2SAT 100
--- NOTE | 2025-03-19 16:31 | WOUNDNOTE ---
[facility] RN note: Faxed patient signed ready home vac (serial #[id number]) proof of delivery form to [facility] and Yessy Everett from [facility]. Also notified [employer] via [employer] portal of stop bill date of vac [facility] rental pump as
of today and citrus picker request (work order #[id number]).
--- NOTE | 2025-03-19 17:25 | WOUNDNOTE ---
[facility] RN note: Lionel Ramirez rep notified this marine underwriter that patient's Peel and Place vac dressings will be delivered to patient's home on Wednesday03/20/25.
== END 2025-03-19 17:30 | disposition home health service (06) | DRG 252 ==
LOC: 2 SOUTH 11:19
PROVIDERS: Internal Medicine; ADMITTING PHYSICIAN Family Medicine; ATTENDING PHYSICIAN Internal Medicine; CONSULT PHYSICIAN Internal Medicine; CONSULT PHYSICIAN Physical Medicine & Rehabilitation; CONSULT PHYSICIAN Psychiatry & Neurology Neurology; CONSULT PHYSICIAN Surgery Vascular Surgery; EMERGENCY PHYSICIAN Emergency Medicine; OTHER PHYSICIAN Nuclear Medicine Nuclear Cardiology
PROC: 04CL0ZZ Extirpation of Matter from Left Femoral Artery, Open Approach (ICD-10-PCS; 2025-03-10)
PROC: 04CW0ZZ Extirpation of Matter from Left Foot Artery, Open Approach (ICD-10-PCS; 2025-03-10)
PROC: 04CQ0ZZ Extirpation of Matter from Left Anterior Tibial Artery, Open Approach (ICD-10-PCS; 2025-03-10)
PROC: 047D3EZ Dilation of Left Common Iliac Artery with Two Intraluminal Devices, Percutaneous Approach (ICD-10-PCS; 2025-03-10)
PROC: 0KNT0ZZ Release Left Lower Leg Muscle, Open Approach (ICD-10-PCS; 2025-03-10)
PROC: 04UL0KZ Supplement Left Femoral Artery with Nonautologous Tissue Substitute, Open Approach (ICD-10-PCS; 2025-03-10)
PROC: 04CN0ZZ Extirpation of Matter from Left Popliteal Artery, Open Approach (ICD-10-PCS; 2025-03-10)
PROC: 3E0234Z Introduction of Serum, Toxoid and Vaccine into Muscle, Percutaneous Approach (ICD-10-PCS; 2025-03-16)
DX: T82.868A Thrombosis due to vascular prosthetic devices, implants and grafts, initial encounter (principal); G92.8 Other toxic encephalopathy; I63.49 Cerebral infarction due to embolism of other cerebral artery; D62 Acute posthemorrhagic anemia; E87.1 Hypo-osmolality and hyponatremia; I74.3 Embolism and thrombosis of arteries of the lower extremities; R47.01 Aphasia; I47.19 Other supraventricular tachycardia; G99.2 Myelopathy in diseases classified elsewhere; I50.22 Chronic systolic (congestive) heart failure; I70.222 Atherosclerosis of native arteries of extremities with rest pain, left leg; I48.0 Paroxysmal atrial fibrillation; I25.10 Atherosclerotic heart disease of native coronary artery without angina pectoris; I11.0 Hypertensive heart disease with heart failure; I25.5 Ischemic cardiomyopathy; E78.5 Hyperlipidemia, unspecified; F17.210 Nicotine dependence, cigarettes, uncomplicated; R27.0 Ataxia, unspecified; I95.9 Hypotension, unspecified; I65.23 Occlusion and stenosis of bilateral carotid arteries; R29.705 NIHSS score 5; R47.1 Dysarthria and anarthria; R41.841 Cognitive communication deficit; D72.829 Elevated white blood cell count, unspecified; R11.10 Vomiting, unspecified; M25.78 Osteophyte, vertebrae; Y83.2 Surgical operation with anastomosis, bypass or graft as the cause of abnormal reaction of the patient, or of later complication, without mention of misadventure at the time of the procedure; M48.02 Spinal stenosis, cervical region; Z86.73 Personal history of transient ischemic attack (TIA), and cerebral infarction without residual deficits; Z95.5 Presence of coronary angioplasty implant and graft; Z79.82 Long term (current) use of aspirin; I25.2 Old myocardial infarction; Z91.199 Patient's noncompliance with other medical treatment and regimen due to unspecified reason; Z23 Encounter for immunization
CPT/HCPCS: 27602; 37186; 37221; 70450; 70496; 70498; 70551; 71045; 75635; 75710; 80048; 80053; 80061; 83036; 83735; 84443; 85014; 85018; 85025; 85027; 85610; 85730; 86803; 86850; 86900; 86901; 88304; 90677; 92507; 92523; 92610; 93005; 93306; 96365; 96366; 96375; 97116; 97129; 97162; 97167; 97530; 97535; 99285; C1725; C1757; C1769; C1874; C1894; G0009; Q9967

== ENCOUNTER → 2025-04-16 06:33 | Outpatient (REF) | payer BC, SELFPAY | LOC: RAD 06:33 | PROVIDERS: ATTENDING PHYSICIAN Registered Nurse | DX: I73.9 Peripheral vascular disease, unspecified (principal) | CPT/HCPCS: 93922; 93925; 93978 ==

== ENCOUNTER → 2025-07-30 07:57 | Outpatient (REF) | payer BC, SELFPAY | LOC: RAD 07:57 | PROVIDERS: ATTENDING PHYSICIAN Registered Nurse | DX: I73.9 Peripheral vascular disease, unspecified (principal) | CPT/HCPCS: 93922; 93925; 93978 ==

== ENCOUNTER → 2025-08-06 08:25 | Outpatient (REF) | payer BC, SELFPAY ==
[2025-08-06 10:31] LABS: Blood Urea Nitrogen 16 mg/dl (9-20); Calcium 9.4 mg/dl (8.4-10.2); Carbon Dioxide 28 mmol/L (22-30); Chloride 103 mmol/L (98-107); Glucose 123 mg/dl (70-99); Potassium 5.1 mmol/L (3.5-5.1); Sodium 136 mmol/L (135-145); eGFR > 60.00
== END ==
LOC: REG 08:25
PROVIDERS: ATTENDING PHYSICIAN Registered Nurse
DX: I73.9 Peripheral vascular disease, unspecified (principal)
CPT/HCPCS: 36415; 80048

== ENCOUNTER → 2025-08-13 07:33 | Outpatient (REF) | payer BC, SELFPAY | LOC: RAD 07:33 | PROVIDERS: ATTENDING PHYSICIAN Registered Nurse; FAMILY PHYSICIAN Student in an Organized Health Care Education/Training Program | DX: I73.9 Peripheral vascular disease, unspecified (principal) | CPT/HCPCS: 75635; Q9967 ==